=== PATIENT | male | born 1945 | race African-American/Black ===

== ENCOUNTER → 2017-01-30 | Outpatient (CLI) | payer OTHER, MEDICAID ==
[2016-12-12 03:02] VITALS: BP 170/85
[2017-01-30 08:47] LABS: BASOPHILS % (AUTO) 0.4 % (0.2-1.0); EOSINOPHILS # (AUTO) 0.1 x10^3/uL (0.0-0.2); EOSINOPHILS % (AUTO) 1.2 % (0.9-2.9); HEMOGLOBIN 13.4 g/dL (13.5-18.0); LYMPHOCYTES # (AUTO) 3.8 X10^3/uL (1.3-2.9); LYMPHOCYTES % (AUTO) 36.8 % (21.0-51.0); MEAN CORPUSCULAR HEMOGLOBIN 26.5 pg (27.0-34.0); MEAN PLATELET VOLUME 8.5 fL (7.4-11.0); MONOCYTES # (AUTO) 0.8 x10^3/uL (0.3-0.8); MONOCYTES % (AUTO) 8.2 % (0.0-13.0); NEUTROPHILS # (AUTO) 5.4 x10^3/uL (2.2-4.8); NEUTROPHILS % (AUTO) 53.4 % (42.0-75.0); PLATELET COUNT 186 X10^3/uL (150.0-450.0); RED BLOOD COUNT 5.05 X10^6/uL (4.7-6.0); RED CELL DISTRIBUTION WIDTH 13.1 % (11.6-16.5); WHITE BLOOD COUNT 10.2 X10^3/uL (3.6-10.0)
[2017-01-30 08:54] LABS: HEMOGLOBIN A1C 6.6 % (4.5-6.2)
[2017-01-30 09:03] LABS: ALBUMIN 3.7 g/dL (3.4-5.0); BLOOD UREA NITROGEN 9 mg/dL (7-18); CALCIUM 8.7 mg/dL (8.5-10.1); CARBON DIOXIDE 26.9 mmol/L (21-32); CHLORIDE 105 mmol/L (98-107); CHOL/HDL RATIO 3.6 (0.0-5.0); CHOLESTEROL 142 mg/dL (0-200); COR NA(FOR HYPERGLY) 141 mmol/L (136-145); CREATININE 1.06 mg/dL (0.70-1.30); GLUCOSE 124 mg/dL (65-99); HDL CHOLESTEROL 40 mg/dL (40-60); PHOSPHORUS 3.2 mg/dL (2.6-4.7); SODIUM 140 mmol/L (136-145); TRIGLYCERIDES 85 mg/dL (0-150); URIC ACID 4.8 mg/dL (3.5-7.2); eGFR BLACK RACES > 60 (>60); eGFR NON BLACK RACES > 60 (>60)
== END ==
LOC: LAB 08:14
PROVIDERS: ATTEND Internal Medicine
DX: I12.9 Hypertensive chronic kidney disease with stage 1 through stage 4 chronic kidney disease, or unspecified chronic kidney disease (principal); N18.3 Chronic kidney disease, stage 3 (moderate); E11.9 Type 2 diabetes mellitus without complications
CPT/HCPCS: 36415; 80061; 80069; 83036; 84550; 85025

== ENCOUNTER → 2017-02-23 | Outpatient (CLI) | payer OTHER, MEDICAID ==
[2016-12-12 03:02] VITALS: BP 170/85
--- NOTE | 2017-02-23 12:40 | US ---
HISTORY: Goiter Study: Thyroid sonogram Comparison: Carotid sonogram November 19, 2016 Technique: Multiple grayscale sonographic images were obtained. Findings: The right lobe measured 4.8 x 2.8 x 3.4 centimeters, the isthmus 7 millimeters common the left lobe 5.1 x 2.8 x 3.8 centimeters. In the right lobe of the thyroid there is a complex 2 centimeter non cy stic dominant nodule for which fine needle aspiration is recommended. In the left lobe there is a be nign 13 millimeter cyst. IMPRESSION: 2 centimeter complex dominant right thyroid lobe nodule for which fine needle aspiration is recommen ded. Reported By:
== END ==
LOC: RAD 10:34
PROVIDERS: ATTEND Nurse Practitioner Family
DX: E04.8 Other specified nontoxic goiter (principal)
CPT/HCPCS: 36415; 76536; 84443

== ENCOUNTER → 2017-02-25 | Outpatient (CLI) | payer OTHER, MEDICAID ==
[2016-12-12 03:02] VITALS: BP 170/85
[2017-02-25 10:42] LABS: FREE T4 (FREE THYROXINE) 0.95 ng/dL (0.76-1.46); T4 (THYROXINE) 7.9 ug/dL (4.7-13.3); TSH (3RD GENERATION) 0.309 uIU/mL (0.358-3.74)
== END ==
LOC: LAB 09:54
PROVIDERS: ATTEND Nurse Practitioner Family
DX: E04.8 Other specified nontoxic goiter (principal)
CPT/HCPCS: 36415; 84436; 84439; 84443

== ENCOUNTER → 2017-03-04 | Outpatient (CLI) | payer OTHER, MEDICAID ==
[2016-12-12 03:02] VITALS: BP 170/85
== END ==
LOC: RAD 13:43
PROVIDERS: ATTEND Internal Medicine Cardiovascular Disease
DX: R06.09 Other forms of dyspnea (principal); R53.83 Other fatigue
CPT/HCPCS: 93306

== ENCOUNTER → 2017-03-09 | Outpatient (CLI) | payer OTHER, MEDICAID ==
[2016-12-12 03:02] VITALS: BP 170/85
== END ==
LOC: RAD 08:26
PROVIDERS: ATTEND Physician Assistant
DX: R06.09 Other forms of dyspnea (principal); R53.83 Other fatigue
CPT/HCPCS: 78452; 93017; A4222; A9502

== ENCOUNTER → 2017-05-05 | Outpatient (CLI) | payer OTHER, MEDICAID ==
[2016-12-12 03:02] VITALS: BP 170/85
[2017-05-05 08:57] LABS: ALBUMIN 3.6 g/dL (3.4-5.0); BLOOD UREA NITROGEN 8 mg/dL (7-18); CALCIUM 8.9 mg/dL (8.5-10.1); CARBON DIOXIDE 26.6 mmol/L (21-32); CHLORIDE 105 mmol/L (98-107); CHOL/HDL RATIO 3.1 (0.0-5.0); CHOLESTEROL 156 mg/dL (0-200); COR NA(FOR HYPERGLY) 141 mmol/L (136-145); CREATININE 1.17 mg/dL (0.70-1.30); GLUCOSE 122 mg/dL (65-99); HDL CHOLESTEROL 50 mg/dL (40-60); HEMOGLOBIN A1C 6.3 % (4.5-6.2); PHOSPHORUS 2.8 mg/dL (2.6-4.7); SODIUM 140 mmol/L (136-145); TRIGLYCERIDES 99 mg/dL (0-150); eGFR BLACK RACES > 60 (>60); eGFR NON BLACK RACES > 60 (>60)
[2017-05-05 08:58] LABS: BASOPHILS % (AUTO) 0.4 % (0.2-1.0); EOSINOPHILS # (AUTO) 0.1 x10^3/uL (0.0-0.2); EOSINOPHILS % (AUTO) 1.7 % (0.9-2.9); HEMATOCRIT 40.8 % (42.0-54.0); HEMOGLOBIN 13.2 g/dL (13.5-18.0); LYMPHOCYTES # (AUTO) 3.3 X10^3/uL (1.3-2.9); LYMPHOCYTES % (AUTO) 36.8 % (21.0-51.0); MEAN CORPUSCULAR HEMOGLOBIN 27.3 pg (27.0-34.0); MEAN CORPUSCULAR HGB CONC 32.4 g/dL (33.0-35.0); MEAN CORPUSCULAR VOLUME 84.2 fL (80.0-100.0); MEAN PLATELET VOLUME 9.2 fL (7.4-11.0); MONOCYTES # (AUTO) 0.8 x10^3/uL (0.3-0.8); MONOCYTES % (AUTO) 8.6 % (0.0-13.0); NEUTROPHILS # (AUTO) 4.7 x10^3/uL (2.2-4.8); NEUTROPHILS % (AUTO) 52.5 % (42.0-75.0); PLATELET COUNT 139 X10^3/uL (150.0-450.0); RED BLOOD COUNT 4.85 X10^6/uL (4.7-6.0); RED CELL DISTRIBUTION WIDTH 13.3 % (11.6-16.5); WHITE BLOOD COUNT 8.9 X10^3/uL (3.6-10.0)
== END ==
LOC: LAB 08:17
PROVIDERS: ATTEND Internal Medicine
DX: I12.9 Hypertensive chronic kidney disease with stage 1 through stage 4 chronic kidney disease, or unspecified chronic kidney disease (principal); N18.3 Chronic kidney disease, stage 3 (moderate); E11.29 Type 2 diabetes mellitus with other diabetic kidney complication; R97.20 Elevated prostate specific antigen [PSA]
CPT/HCPCS: 36415; 80061; 80069; 83036; 84153; 85025

== ENCOUNTER → 2017-08-19 | Outpatient (CLI) | payer OTHER, MEDICAID ==
[2016-12-12 03:02] VITALS: BP 170/85
[2017-08-19 10:35] LABS: BASOPHILS % (AUTO) 0.6 % (0.2-1.0); EOSINOPHILS # (AUTO) 0.2 x10^3/uL (0.0-0.2); EOSINOPHILS % (AUTO) 2.4 % (0.9-2.9); HEMATOCRIT 40.1 % (42.0-54.0); HEMOGLOBIN 13.1 g/dL (13.5-18.0); LYMPHOCYTES # (AUTO) 2.6 X10^3/uL (1.3-2.9); MEAN CORPUSCULAR HEMOGLOBIN 27.5 pg (27.0-34.0); MEAN CORPUSCULAR HGB CONC 32.6 g/dL (33.0-35.0); MEAN CORPUSCULAR VOLUME 84.2 fL (80.0-100.0); MEAN PLATELET VOLUME 8.9 fL (7.4-11.0); MONOCYTES # (AUTO) 0.7 x10^3/uL (0.3-0.8); MONOCYTES % (AUTO) 8.5 % (0.0-13.0); NEUTROPHILS # (AUTO) 4.2 x10^3/uL (2.2-4.8); NEUTROPHILS % (AUTO) 54.5 % (42.0-75.0); PLATELET COUNT 157 X10^3/uL (150.0-450.0); RED BLOOD COUNT 4.76 X10^6/uL (4.7-6.0); RED CELL DISTRIBUTION WIDTH 13.6 % (11.6-16.5); WHITE BLOOD COUNT 7.8 X10^3/uL (3.6-10.0)
[2017-08-19 10:43] LABS: CREATININE,URINE 59.32 mg/dL (40-278)
[2017-08-19 10:54] LABS: ALANINE AMINOTRANSFERASE 35 Units/L (12-78); ALBUMIN 3.5 g/dL (3.4-5.0); ALKALINE PHOSPHATASE 54 Units/L (46-116); ASPARTATE AMINO TRANSFERASE 29 Units/L (15-37); BLOOD UREA NITROGEN 9 mg/dL (7-18); CARBON DIOXIDE 28.9 mmol/L (21-32); CHLORIDE 106 mmol/L (98-107); COR NA(FOR HYPERGLY) 141 mmol/L (136-145); CREATININE 1.29 mg/dL (0.70-1.30); SODIUM 139 mmol/L (136-145); TSH (3RD GENERATION) 0.442 uIU/mL (0.358-3.74); eGFR BLACK RACES > 60 (>60); eGFR NON BLACK RACES 58 (>60)
== END ==
LOC: LAB 10:12
PROVIDERS: ATTEND Nurse Practitioner Family
DX: E11.9 Type 2 diabetes mellitus without complications (principal); R94.6 Abnormal results of thyroid function studies
CPT/HCPCS: 36415; 80053; 82043; 83036; 84443; 85025

== ENCOUNTER → 2017-09-18 | Outpatient (CLI) | payer OTHER, MEDICAID ==
[2016-12-12 03:02] VITALS: BP 170/85
[2017-09-18 09:08] LABS: BASOPHILS % (AUTO) 0.4 % (0.2-1.0); EOSINOPHILS # (AUTO) 0.1 x10^3/uL (0.0-0.2); EOSINOPHILS % (AUTO) 1.4 % (0.9-2.9); HEMATOCRIT 41.7 % (42.0-54.0); HEMOGLOBIN 13.6 g/dL (13.5-18.0); LYMPHOCYTES # (AUTO) 3.3 X10^3/uL (1.3-2.9); LYMPHOCYTES % (AUTO) 37.4 % (21.0-51.0); MEAN CORPUSCULAR HEMOGLOBIN 27.3 pg (27.0-34.0); MEAN CORPUSCULAR HGB CONC 32.7 g/dL (33.0-35.0); MEAN CORPUSCULAR VOLUME 83.4 fL (80.0-100.0); MEAN PLATELET VOLUME 9.4 fL (7.4-11.0); MONOCYTES # (AUTO) 0.8 x10^3/uL (0.3-0.8); MONOCYTES % (AUTO) 8.9 % (0.0-13.0); NEUTROPHILS # (AUTO) 4.5 x10^3/uL (2.2-4.8); NEUTROPHILS % (AUTO) 51.9 % (42.0-75.0); PLATELET COUNT 172 X10^3/uL (150.0-450.0); RED CELL DISTRIBUTION WIDTH 13.7 % (11.6-16.5); WHITE BLOOD COUNT 8.8 X10^3/uL (3.6-10.0)
[2017-09-18 09:15] LABS: ALBUMIN 3.7 g/dL (3.4-5.0); BLOOD UREA NITROGEN 10 mg/dL (7-18); CALCIUM 8.9 mg/dL (8.5-10.1); CARBON DIOXIDE 24.7 mmol/L (21-32); CHLORIDE 104 mmol/L (98-107); CHOL/HDL RATIO 3.3 (0.0-5.0); CHOLESTEROL 151 mg/dL (0-200); COR NA(FOR HYPERGLY) 141 mmol/L (136-145); CREATININE 1.21 mg/dL (0.70-1.30); HDL CHOLESTEROL 46 mg/dL (40-60); HEMOGLOBIN A1C 5.8 % (4.5-6.2); PHOSPHORUS 2.9 mg/dL (2.6-4.7); SODIUM 140 mmol/L (136-145); TRIGLYCERIDES 71 mg/dL (0-150); URIC ACID 5.7 mg/dL (3.5-7.2); eGFR BLACK RACES > 60 (>60); eGFR NON BLACK RACES > 60 (>60)
== END ==
LOC: LAB 08:13
PROVIDERS: ATTEND Internal Medicine
DX: I12.9 Hypertensive chronic kidney disease with stage 1 through stage 4 chronic kidney disease, or unspecified chronic kidney disease (principal); N18.3 Chronic kidney disease, stage 3 (moderate); E11.22 Type 2 diabetes mellitus with diabetic chronic kidney disease
CPT/HCPCS: 36415; 80061; 80069; 83036; 84550; 85025

== ENCOUNTER → 2017-12-14 | Outpatient (CLI) | payer OTHER, MEDICAID ==
[2016-12-12 03:02] VITALS: BP 170/85
[2017-12-14 08:45] LABS: BASOPHILS % (AUTO) 0.5 % (0.2-1.0); EOSINOPHILS # (AUTO) 0.1 x10^3/uL (0.0-0.2); HEMATOCRIT 39.7 % (42.0-54.0); HEMOGLOBIN 13.1 g/dL (13.5-18.0); LYMPHOCYTES # (AUTO) 3.4 X10^3/uL (1.3-2.9); LYMPHOCYTES % (AUTO) 35.1 % (21.0-51.0); MEAN CORPUSCULAR HEMOGLOBIN 27.7 pg (27.0-34.0); MEAN CORPUSCULAR HGB CONC 32.9 g/dL (33.0-35.0); MEAN CORPUSCULAR VOLUME 84.1 fL (80.0-100.0); MEAN PLATELET VOLUME 8.6 fL (7.4-11.0); MONOCYTES # (AUTO) 0.8 x10^3/uL (0.3-0.8); MONOCYTES % (AUTO) 7.7 % (0.0-13.0); NEUTROPHILS # (AUTO) 5.5 x10^3/uL (2.2-4.8); NEUTROPHILS % (AUTO) 55.7 % (42.0-75.0); PLATELET COUNT 174 X10^3/uL (150.0-450.0); RED BLOOD COUNT 4.72 X10^6/uL (4.7-6.0); RED CELL DISTRIBUTION WIDTH 13.5 % (11.6-16.5); WHITE BLOOD COUNT 9.8 X10^3/uL (3.6-10.0)
[2017-12-14 08:53] LABS: HEMOGLOBIN A1C 5.7 %
[2017-12-14 08:59] LABS: ALBUMIN 3.6 g/dL (3.4-5.0); BLOOD UREA NITROGEN 13 mg/dL (7-18); CALCIUM 8.8 mg/dL (8.5-10.1); CARBON DIOXIDE 28.8 mmol/L (21-32); CHLORIDE 104 mmol/L (98-107); COR NA(FOR HYPERGLY) 140 mmol/L (136-145); CREATININE 1.22 mg/dL (0.70-1.30); PHOSPHORUS 2.7 mg/dL (2.6-4.7); SODIUM 139 mmol/L (136-145); URIC ACID 5.8 mg/dL (3.5-7.2); eGFR BLACK RACES > 60 (>60); eGFR NON BLACK RACES > 60 (>60)
[2017-12-14 09:18] LABS: TOTAL PSA 6.38 ng/mL (0.13-4.0)
== END ==
LOC: LAB 08:14
PROVIDERS: ATTEND Internal Medicine
DX: I12.9 Hypertensive chronic kidney disease with stage 1 through stage 4 chronic kidney disease, or unspecified chronic kidney disease (principal); N18.3 Chronic kidney disease, stage 3 (moderate); E11.29 Type 2 diabetes mellitus with other diabetic kidney complication; R35.1 Nocturia
CPT/HCPCS: 36415; 80069; 83036; 84153; 84550; 85025

== ENCOUNTER 2024-06-26 20:29 | Inpatient (IN) ==
--- NOTE | 2024-06-26 21:17 | DR.N/VMALE ---
HPI Time Seen Time Seen by Provider: 06/26/24 21:17 Complaints Chief Complaint Doctors Comments: Patient had been admitted to [facility] with a TIA and had been having abdl pain [address] Nieto ordered an 05/25/24 abd/pelvis ct without contrast that revealed an 8cm sigmoid colon mass suspic ious for carcinoma. Patient had TED and was hydrated and was d/c home.He had been evaluated by a drafting clerk during the admission. Patient returns with son because his appetite is greatly decreased (He has lost 20lbs in 2 weeks) and he has increased abdominal pain. Son states that patient has had n,v and cannot keep anything down. Patient denies: hematemesis,hematochezia,syncope,sob,chest pain,back pain. PMH PMH Past Medical History: Arthritis, Diabetes, GERD, Hypertension and Sleep Apnea Past Surgical History: Yes Surgical History: Other Family History Family Medical History: Diabetes Mellitus and Hypertension Social History Do you use any recreational Drugs:: No ROS Review of Systems Constitutional: Fever Eyes: No Symptoms Reported ENTM: No Symptoms Reported Respiratoy: No Symptoms Reported Cardiovascular: No Symptoms Reported Gastrointestinal/Abdominal: Abdominal Pain (LLQ), Nausea, Vomiting and Food Intolerance Genitourinary: No Symptoms Reported Neurological: No Symptoms Reported Musculoskeletal: No Symptoms Reported Integumentary: No Symptoms Reported Hematologic/Lymphatic: No Symptoms Reported Endocrine: No Symptoms Reported Psychiatric: No Symptoms Reported All Other Systems: Reviewed and Negative PE Vital Signs Vitals: Vital Signs Temperature 100.7 F Temperature 100.7 F Pulse Rate [Left Brachial] 105 Pulse Rate 98 Pulse Rate 104 Pulse Rate 107 Pulse Rate 107 Pulse Rate 104 Pulse Rate 107 Pulse Rate 108 Pulse Rate 107 Pulse Rate 110 Pulse Rate 114 Pulse Rate 113 Pulse Rate 113 Pulse Rate 113 Pulse Rate 113 Pulse Rate 112 Pulse Rate 24 Respiratory Rate 20 Respiratory Rate 22 Respiratory Rate 21 Respiratory Rate 21 Respiratory Rate 24 Respiratory Rate 21 Respiratory Rate 19 Respiratory Rate 22 Respiratory Rate 141 Blood Pressure [Left Arm] 116/60 Blood Pressure 124/59 Blood Pressure 111/67 Blood Pressure 125/58 Blood Pressure 98/53 Blood Pressure 119/59 Blood Pressure 119/59 Blood Pressure 119/59 Blood Pressure 119/63 Blood Pressure 110/62 Blood Pressure 79/50 O2 Sat by Pulse Oximetry 97 O2 Sat by Pulse Oximetry 95 O2 Sat by Pulse Oximetry 96 O2 Sat by Pulse Oximetry 97 O2 Sat by Pulse Oximetry 97 O2 Sat by Pulse Oximetry 97 O2 Sat by Pulse Oximetry 97 O2 Sat by Pulse Oximetry 97 O2 Sat by Pulse Oximetry 97 O2 Sat by Pulse Oximetry 97 O2 Sat by Pulse Oximetry 97 O2 Sat by Pulse Oximetry 97 O2 Sat by Pulse Oximetry 96 O2 Sat by Pulse Oximetry 97 O2 Sat by Pulse Oximetry 98 O2 Sat by Pulse Oximetry 96 O2 Sat by Pulse Oximetry 95 General Limitations: No Limitations General Appearance: Alert and In No Apparent Distress Head Head Exam: Normal Inspection Eyes Eye exam: Normal Appearance ENT ENT Exam: Normal Exam Neck Neck Exam: Normal Inspection Chest Chest Inspection: Normal Inspection Respiratory Respiratory Exam: Normal Lung Sounds Bilat Respiratory Exam: Bilateral: Clear to Auscultation Cardiovascular Cardiovascular Exam: Tachycardia Abdominal Exam Abdominal Exam: Soft and Tenderness Abdominal Tenderness: LLQ Rectal Rectal Exam: Deferred Exam: Male: Deferred Extremities Extremities Exam: Normal Inspection Back Back Exam: Normal Inspection Neurologic Neurological Exam: Alert and Oriented X3 Psychiatric Psychiatric Exam: Normal Affect and Normal Mood Skin Skin Exam: Warm, Dry, Intact and Normal Color MDM Differential Diagnosis Differential Diagnosis: Considerations may Include:: Bowel Obstruction, Inflammatory BD and Pancreatitis Differential Diagnosis Comment: DDx: Enlarged sigmoid colon mass,bowel ischemia COURSE Treatment Treatment: Patient was brought to a monitored room he has been tachycardic since arrival in the ED and has recieved NS 1liter bolus iv. Patient's wbc is 30.2 and a blset of blood cxs were collected and Ptaient was given Zosyn 4.5g iv x 1 dose in the ED. Patient was also given pepcid 20mg iv,and tylenol 1 g iv for repeat temp 100.7. Patient's first lactate is 4.4 and the 2nd is 3.2. Patient has a stable h/h and he continues with TED(creat 1.56). Patient will be given NS @ 100ml/hr iv. Discussed case with Dr Medrano. Dr Medrano has accepted the Patient to [facility]. Dr Nieto will be consulted. [facility]OR Labs Reviewed 06/26/24 21:38 06/26/24 21:38 Laboratory: WBC 30.2 X10^3/uL (3.6-10.0) H* 06/26/24 21:38 RBC 3.93 X10^6/uL (4.7-6.0) L 06/26/24 21:38 Hgb 10.6 g/dL (13.5-18.0) L 06/26/24 21:38 Hct 33.9 % (42.0-54.0) L 06/26/24 21:38 MCV 86.1 fL (80.0-100.0) 06/26/24 21:38 MCH 26.9 pg (27.0-34.0) L 06/26/24 21:38 MCHC 31.2 g/dL (33.0-35.0) L 06/26/24 21:38 RDW 15.3 % (11.6-16.5) 06/26/24 21:38 Plt Count 375 X10^3/uL (150.0-450.0) 06/26/24 21:38 MPV 8.4 fL (7.4-11.0) 06/26/24 21:38 Neut % (Auto) 84.3 % (42.0-75.0) H 06/26/24 21:38 Lymph % (Auto) 8.8 % (21.0-51.0) L 06/26/24 21:38 Edgar % (Auto) 6.6 % (0.0-13.0) 06/26/24 21:38 Eos % (Auto) 0.0 % (0.9-2.9) L 06/26/24 21:38 Baso % (Auto) 0.3 % (0.2-1.0) 06/26/24 21:38 Neut # (Auto) 25.4 x10^3/uL (2.2-4.8) H 06/26/24 21:38 Lymph # (Auto) 2.7 X10^3/uL (1.3-2.9) 06/26/24 21:38 Edgar # (Auto) 2.0 x10^3/uL (0.3-0.8) H 06/26/24 21:38 Eos # (Auto) 0.0 x10^3/uL (0.0-0.2) 06/26/24 21:38 Baso # (Auto) 0.1 X10^3/uL (0.0-0.1) 06/26/24 21:38 Absolute Nucleated RBC 0.0 /100WBC 06/26/24 21:38 Sodium 136 mmol/L (136-145) 06/26/24 21:38 Corrected Sodium 141 mmol/L (136-145) 06/26/24 21:38 Potassium 3.7 mmol/L (3.5-5.1) 06/26/24 21:38 Chloride 98 mmol/L (98-107) 06/26/24 21:38 Carbon Dioxide 22.9 mmol/L (21-32) 06/26/24 21:38 BUN 13 mg/dL (7-18) 06/26/24 21:38 Creatinine 1.56 mg/dL (0.70-1.30) H 06/26/24 21:38 Est GFR (MDRD) Af Amer 55 (>60) L 06/26/24 21:38 Est GFR (MDRD) Non-Af 46 (>60) L 06/26/24 21:38 Glucose 309 mg/dL (65-99) H 06/26/24 21:38 Lactic Acid 3.2 mmol/L (0.4-2.0) H 06/26/24 23:16 Calcium 9.5 mg/dL (8.5-10.1) 06/26/24 21:38 Corrected Calcium 10.5 mg/dL (8.5-10.1) H 06/26/24 21:38 Magnesium 1.4 mg/dL (2.0-2.9) L 06/26/24 21:38 Total Bilirubin 0.60 mg/dL (0.2-1.0) 06/26/24 21:38 AST 16 Units/L (15-37) 06/26/24 21:38 ALT 14 Units/L (12-78) 06/26/24 21:38 Alkaline Phosphatase 71 Units/L (46-116) 06/26/24 21:38 Total Protein 7.1 g/dL (6.4-8.2) 06/26/24 21:38 Albumin 2.7 g/dL (3.4-5.0) L 06/26/24 21:38 Globulin 4.4 g/dL (2.5-4.5) 06/26/24 21:38 Albumin/Globulin Ratio 0.6 Ratio (1.1-2.1) L 06/26/24 21:38 Amylase 61 Units/L (25-115) 06/26/24 21:38 Lipase 20 Units/L (16-77) 06/26/24 21:38 Opioid Opioid Risk Tool Age (Tayo box if 16-45): No History of Preadolescent Sexual Abuse: No Total: 0 Total Score Risk Category: Low Risk Copyright: [facility] predicting aberrant behaviors Discharge Plan Diagnosis Discharge Problem: Sepsis, TED (acute kidney injury), Cancer of sigmoid colon Discharge Plan Patient Disposition: ADMITTED INPATIENT Condition: Stable Prescriptions: No Action docusate sodium [Colace] 100 mg capsule 100 mg PO BID 30 Days Qty: 60 0RF aspirin 81 mg tablet,delayed release (DR/EC) 81 mg PO QDAY metformin 500 mg tablet 500 mg PO BID 30 Days Qty: 60 2RF simvastatin 40 mg tablet 40 mg PO QPM Qty: 90 0RF gabapentin 100 mg capsule 100 mg PO BID 30 Days Qty: 60 3RF hydrocodone-acetaminophen 10-325 mg tablet 1 - 2 tab PO TID MDD 4 PRN (Reason: pain) 30 Days Qty: 100 0RF ferrous gluconate 324 mg (37.5 mg iron) tablet 324 mg PO BID Qty: 60 2RF finasteride 5 mg tablet 5 mg PO QDAY doxazosin 8 mg Tablet 8 mg PO DAILY glipizide 5 mg tablet 5 mg PO DAILY torsemide 5 mg tablet 5 mg PO QDAY pantoprazole 40 mg tablet,delayed release (DR/EC) 40 mg PO QDAY ergocalciferol (vitamin D2) [Vitamin D2] 1,250 mcg (50,000 unit) Capsule 1,250 mcg PO QWEEK Multaq 400 mg tablet 400 mg PO BID cyproheptadine 4 mg tablet 2 mg PO BID Health Concerns: Post Hospitalization: new medications and changes needed to prevent readmission or further decline. Pt educated and given instructions on all concerns. Plan of Treatment: Continue with present treatment and follow up plan. Pt is to keep follow up appointment as instructed and take medications as ordered. Orders to Discharge Patient Discharge Orders: Transfer (Routine); Ordered 06/27/24 Ordered By: Tamica Watkins Follow ups/Referrals Follow ups/Referrals: Stephane Sandoval [Primary Care Provider] - 3 days Instructions Stand Alone Forms: Post Hospital Follow Up Care
[2024-06-26] MEDS: PEPCID 20 MG VIAL IVP ONE (22:19)
[2024-06-26] MEDS: NS 1,000 ML IV 1,000 ML IV ONE (22:19)
[2024-06-26 22:22] LABS: HEMATOCRIT 33.9 % (42.0-54.0); LYMPHOCYTES # (AUTO) 2.7 X10^3/uL (1.3-2.9); LYMPHOCYTES % (AUTO) 8.8 % (21.0-51.0); MEAN PLATELET VOLUME 8.4 fL (7.4-11.0); NEUTROPHILS # (AUTO) 25.4 x10^3/uL (2.2-4.8); RED BLOOD COUNT 3.93 X10^6/uL (4.7-6.0)
[2024-06-26 22:26] LABS: BASOPHILS # (AUTO) 0.1 X10^3/uL (0.0-0.1); BASOPHILS % (AUTO) 0.3 % (0.2-1.0); HEMOGLOBIN 10.6 g/dL (13.5-18.0); MEAN CORPUSCULAR HEMOGLOBIN 26.9 pg (27.0-34.0); MEAN CORPUSCULAR HGB CONC 31.2 g/dL (33.0-35.0); MEAN CORPUSCULAR VOLUME 86.1 fL (80.0-100.0); MONOCYTES % (AUTO) 6.6 % (0.0-13.0); NEUTROPHILS % (AUTO) 84.3 % (42.0-75.0); PLATELET COUNT 375 X10^3/uL (150.0-450.0); RED CELL DISTRIBUTION WIDTH 15.3 % (11.6-16.5)
[2024-06-26 22:30] LABS: ALBUMIN 2.7 g/dL (3.4-5.0); CALCIUM 9.5 mg/dL (8.5-10.1); CARBON DIOXIDE 22.9 mmol/L (21-32); COR CA(FOR HYPOALB) 10.5 mg/dL (8.5-10.1); CREATININE 1.56 mg/dL (0.70-1.30); MAGNESIUM 1.4 mg/dL (2.0-2.9); POTASSIUM 3.7 mmol/L (3.5-5.1); TOTAL PROTEIN 7.1 g/dL (6.4-8.2)
[2024-06-26 22:42] LABS: WHITE BLOOD COUNT 30.2 X10^3/uL (3.6-10.0)
[2024-06-26] MEDS ORDERED: NS 250 ML IV 25 ML IV PRN (22:48)
[2024-06-26] MEDS: ZOSYN VIAL 4.5 GRAMS 4.5 G in NS 100 ML IV 100 ML IV SCH (23:06)
--- NOTE | 2024-06-26 23:29 | CT ---
EXAM:ABDOMEN/PELVIS W/O CONHISTORY:ABDOMEN PAIN, LOSS OF APPETITE ; HTN, DM, GERD, ARTHRITIS, SLEEP APNEA, MINI STROKECOMPARISON:May 24, 2024TECHNIQUE:Non-contrasted axial CT images of the abdomen and pelvis were obtained and reformatted into coronal and sagittal planes for further evaluation.Radiation dose: 360.76 mGy-cm total DLPFINDINGS:Lung bases are clear.Small nonspecific pericardial effusion.Stomach appears normal.Diffuse fatty infiltration of the liver.Spleen, pancreas and adrenal glands are unremarkable.Small calcified stones and sludge in the gallbladder with no imaging findings of acute cholecystitis.No intra or extrahepatic biliary duct dilatation.Unremarkable appearance of the kidneys.No hydronephrosis, hydroureter or ureteral calculus.Unremarkable appearance of the urinary bladder.Thick walled cavitary foci which appears to arise from the sigmoid colon, in the left mid abdomen measuring approximately 7.9 x 9.5 x 11.7 cm. Foci has increased in size when compared to the previous exam.Reproductive structures are unremarkable.No evidence of acute appendicitis.No pneumoperitoneum.No significant fluid collection.No adenopathy.No acute osseous abnormality.Moderate-sized fat containing right paraumbilical hernia without inflammatory changes.Incidental small right Bochdalek hernia.IMPRESSION:1. Thick walled cavitary foci which appears to arise from the sigmoid colon, in the left mid abdomen measuring approximately 7.9 x 9.5 x 11.7 cm. Foci has increased in size when compared to the previous exam. Findings could represent carcinoma or lymphoma. Recommend general surgery consultation.2. Diffuse fatty infiltration of the liver.THIS IS AN ELECTRONICALLY VERIFIED FINAL REPORT06/26/2024 11:26 PM - Electronically signed by Tushar Oliver MD
[2024-06-27] MEDS: OFIRMEV IV 1000 MG VIAL 1,000 MG/100 ML VIAL IV ONE (00:20)
[2024-06-27] MEDS: NS 1,000 ML IV 1,000 ML IV SCH (01:33)
[2024-06-27] MEDS: CONSULT PHARMACY - POTASSIUM & MAGNESIUM XX SCH (01:33)
[2024-06-27 02:30] VITALS: BMI 31.1
[2024-06-27 05:18] LABS: EOSINOPHILS % (AUTO) 0.1 % (0.9-2.9); HEMOGLOBIN 8.7 g/dL (13.5-18.0); LYMPHOCYTES # (AUTO) 3.4 X10^3/uL (1.3-2.9); MEAN CORPUSCULAR HEMOGLOBIN 26.9 pg (27.0-34.0); RED BLOOD COUNT 3.23 X10^6/uL (4.7-6.0)
[2024-06-27 05:23] LABS: BASOPHILS % (AUTO) 0.1 % (0.2-1.0); HEMATOCRIT 27.5 % (42.0-54.0); LYMPHOCYTES % (AUTO) 11.3 % (21.0-51.0); MEAN CORPUSCULAR HGB CONC 31.6 g/dL (33.0-35.0); MEAN CORPUSCULAR VOLUME 85.2 fL (80.0-100.0); MEAN PLATELET VOLUME 7.9 fL (7.4-11.0); MONOCYTES # (AUTO) 2.2 x10^3/uL (0.3-0.8); MONOCYTES % (AUTO) 7.3 % (0.0-13.0); NEUTROPHILS # (AUTO) 24.3 x10^3/uL (2.2-4.8); NEUTROPHILS % (AUTO) 81.2 % (42.0-75.0); PLATELET COUNT 316 X10^3/uL (150.0-450.0); RED CELL DISTRIBUTION WIDTH 14.9 % (11.6-16.5); WHITE BLOOD COUNT 29.9 X10^3/uL (3.6-10.0)
[2024-06-27 05:26] LABS: ALANINE AMINOTRANSFERASE 7 Units/L (12-78); ALBUMIN 2.1 g/dL (3.4-5.0); ALKALINE PHOSPHATASE 58 Units/L (46-116); ASPARTATE AMINO TRANSFERASE 9 Units/L (15-37); BLOOD UREA NITROGEN 14 mg/dL (7-18); CALCIUM 8.6 mg/dL (8.5-10.1); CARBON DIOXIDE 27.2 mmol/L (21-32); CHLORIDE 103 mmol/L (98-107); COR CA(FOR HYPOALB) 10.1 mg/dL (8.5-10.1); COR NA(FOR HYPERGLY) 143 mmol/L (136-145); CREATININE 1.34 mg/dL (0.70-1.30); GLUCOSE 252 mg/dL (65-99); POTASSIUM 3.5 mmol/L (3.5-5.1); SODIUM 139 mmol/L (136-145); TOTAL PROTEIN 5.8 g/dL (6.4-8.2); eGFR NON BLACK RACES 55 (>60)
[2024-06-27] MEDS: ZOSYN VIAL 4.5 GRAMS 4.5 G in NS 100 ML IV 100 ML IV SCH (05:37)
[2024-06-27 05:38] LABS: HYPOCHROMASIA SLIGHT; PLATELET MORPHOLOGY COMMENT NORMAL (NORMAL)
[2024-06-27] MEDS: NovoLIN R (or HumuLIN R) SUBCUT PRN (06:25)
[2024-06-27 08:03] LABS: BILIRUBIN,URINE NEGATIVE (NEGATIVE); BLOOD/HEMOGLOBIN,URINE NEGATIVE (NEGATIVE); GLUCOSE, URINE 2+ (NEGATIVE); KETONES,URINE NEGATIVE (NEGATIVE); LEUKOCYTE ESTERASE ,URINE NEGATIVE (NEGATIVE); NITRITES,URINE NEGATIVE (NEGATIVE); PROTEIN,URINE 2+ (NEGATIVE); UROBILINOGEN,URINE NORMAL (NORMAL)
[2024-06-27 08:06] LABS: APPEARANCE,URINE CLEAR (CLEAR); COLOR,URINE YELLOW (YELLOW)
[2024-06-27 08:15] LABS: BACTERIA,URINE NEGATIVE /HPF (NEGATIVE); CALCIUM OXALATE CRYSTALS,UR RARE /HPF (NEGATIVE); RBC,URINE NONE SEEN /HPF (0-3); SQUAMOUS EPITHELIAL CELL,UR RARE /HPF (NEGATIVE)
[2024-06-27 08:16] LABS: OTHER CRYSTALS,URINE FEW /HPF (NEGATIVE)
[2024-06-27] MEDS ORDERED: VITAMIN D (1.25MG) PO SCH (09:00)
[2024-06-27] MEDS: FERROUS GLUCONATE PO SCH (09:48)
[2024-06-27] MEDS: MULTAQ PO SCH (09:49)
[2024-06-27] MEDS: PROTONIX INJ 40 MG VIAL IVP SCH (09:49)
[2024-06-27] MEDS: COLACE CAP 100 MG PO SCH (09:50)
[2024-06-27] MEDS: PROSCAR PO SCH (09:50)
[2024-06-27] MEDS: CARDURA PO SCH (09:51)
[2024-06-27] MEDS: NEURONTIN CAP 100 MG PO SCH (09:51)
[2024-06-27] MEDS: DEMADEX PO SCH (09:52)
--- NOTE | 2024-06-27 16:21 | EKG ---
Test Reason : preop Blood Pressure : */* mmHG Vent. Rate : 95 BPM Atrial Rate : 95 BPM P-R Int : 126 ms QRS Dur : 80 ms QT Int : 366 ms P-R-T Axes : 47 46 48 degrees QTc Int : 459 ms Sinus rhythm with marked sinus arrhythmia with occasional premature ventricular complexes Otherwise normal ECG When compared with ECG of 02-JUN-2024 08:53, premature ventricular complexes are now present Confirmed by Rashad Jackson MD ([id number]) on 06/28/2024 7:24:41 AM Referred By: Confirmed By: Rashad Jackson MD
[2024-06-27] MEDS: ZOCOR TAB 10 MG PO SCH (21:16)
[2024-06-28 06:22] LABS: BASOPHILS # (AUTO) 0.1 X10^3/uL (0.0-0.1); BASOPHILS % (AUTO) 0.6 % (0.2-1.0); EOSINOPHILS # (AUTO) 0.4 x10^3/uL (0.0-0.2); EOSINOPHILS % (AUTO) 1.9 % (0.9-2.9); HEMATOCRIT 26.9 % (42.0-54.0); HEMOGLOBIN 8.6 g/dL (13.5-18.0); LYMPHOCYTES # (AUTO) 3.8 X10^3/uL (1.3-2.9); LYMPHOCYTES % (AUTO) 17.9 % (21.0-51.0); MEAN CORPUSCULAR HEMOGLOBIN 27.2 pg (27.0-34.0); MEAN PLATELET VOLUME 7.9 fL (7.4-11.0); MONOCYTES # (AUTO) 1.8 x10^3/uL (0.3-0.8); MONOCYTES % (AUTO) 8.5 % (0.0-13.0); NEUTROPHILS % (AUTO) 71.1 % (42.0-75.0); PLATELET COUNT 271 X10^3/uL (150.0-450.0); RED BLOOD COUNT 3.16 X10^6/uL (4.7-6.0); RED CELL DISTRIBUTION WIDTH 14.7 % (11.6-16.5); WHITE BLOOD COUNT 21.2 X10^3/uL (3.6-10.0)
[2024-06-28 06:38] LABS: ALANINE AMINOTRANSFERASE 8 Units/L (12-78); ALKALINE PHOSPHATASE 54 Units/L (46-116); ASPARTATE AMINO TRANSFERASE 13 Units/L (15-37); BLOOD UREA NITROGEN 9 mg/dL (7-18); CALCIUM 8.8 mg/dL (8.5-10.1); CARBON DIOXIDE 24.5 mmol/L (21-32); CHLORIDE 103 mmol/L (98-107); COR CA(FOR HYPOALB) 10.4 mg/dL (8.5-10.1); COR NA(FOR HYPERGLY) 138 mmol/L (136-145); CREATININE 1.15 mg/dL (0.70-1.30); GLUCOSE 142 mg/dL (65-99); MAGNESIUM 1.5 mg/dL (2.0-2.9); POTASSIUM 3.3 mmol/L (3.5-5.1); SODIUM 137 mmol/L (136-145); TOTAL PROTEIN 5.8 g/dL (6.4-8.2); eGFR NON BLACK RACES > 60 (>60)
[2024-06-28] MEDS ORDERED: CONSULT PHARMACY - POTASSIUM & MAGNESIUM XX SCH ×2 (07:00→08:00)
[2024-06-28 07:13] LABS: BAND NEUTROPHILS % 2 % (0-10); PLATELET MORPHOLOGY COMMENT NORMAL (NORMAL)
--- NOTE | 2024-06-28 08:32 | DR.CONSULT ---
CONSULT Consultation for Day of: Date: 06/28/24 Chief Complaint Chief Complaint: abdominal c/o, n,v Allergies Allergies Allergy/AdvReac Type Severity Reaction Status Date / Time No Known Drug Allergies Allergy Unknown Verified 06/26/24 21:23 History of Present Illness History of Present Illness: 78 yo male- had stroke 06/02/24- known colon mass that needs resection- attempted to wait 6 weeks at [facility] post stroke but poor po/n/v- states took asa/plavix and held it down thursday- cath 2020: no cad, stress 09/17: no ischemia, echo 05/18: good lv- before stroke/colon mass-cutting grass w/o issue Past Medical History Past Medical History: Arthritis, Diabetes, GERD, Hypertension and Sleep Apnea Past Surgical History Surgical History: Other Family History Family Medical History: Diabetes Mellitus and Hypertension Social History Does patient currently use any type of tobacco product: No Type of Tobacco Use: None Alcohol Use: None Drug Use: None Medications Home Medications: No Known Drug Allergies Allergy (Unknown, Verified 06/26/24 21:23) CONTINUE taking the following medications cyproheptadine 4 mg tablet 2 mg PO BID appetite 06/26/24 [History] dronedarone 400 mg tablet (Multaq) 400 mg PO BID 06/26/24 [History] ergocalciferol (vitamin D2) 1,250 mcg (50,000 unit) capsule (Vitamin D2) 1,250 mcg PO QWEEK 06/26/24 [History] pantoprazole 40 mg tablet,delayed release 40 mg PO QDAY 06/26/24 [History] Physical Exam Vital Signs: Vital Signs Temperature 98.1 F Pulse Rate [Left Brachial] 71 Respiratory Rate 18 Blood Pressure [Right Arm] 92/52 O2 Sat by Pulse Oximetry 98 alert ox3 nad clear lungs no bruits no edema labs: wbc 30 down to 21, hct 26.9 coags normal, k 3.3 [address]:8 x9x 11 mass in colon Plan (1) Cancer of sigmoid colon: Status: Acute (2) Anemia: Status: Acute (3) History of CVA (cerebrovascular accident): Status: Acute (4) Sepsis: Status: Acute (5) TED (acute kidney injury): Status: Acute (6) Preop cardiovascular exam: Status: Acute Narrative Support Text: off plavix and asa since thursday- would wait 5 days before surgery due to bleeding risk- CV risk acceptable- recurrent stroke is risk as 3 weeks post stroke but colon mass causing issues- needs a few days for antibiotics as well
[2024-06-28] MEDS: REGLAN INJ 10 MG VIAL IVP PRN (09:47)
[2024-06-28] MEDS: NS + KCL 20 MEQ/L 1,000 ML with MAGNESIUM SULFATE 50% INJ VIAL 1 G IV SCH (09:47)
--- NOTE | 2024-06-28 13:08 | PCM.PROG ---
Progress Note Progress Note for Day of Date of Exam: 06/28/24 Subjective Subjective: Patient seen at bedside, no acute events overnight. He has been admitted for generalized weakness, decreased appetite and abdominal distention. Patient was recently diagnosed with colon cancer and then had a stroke a few weeks later. He is currently on aspirin and Plavix. Patient needs abdominal surgery but due to recent stroke, patient was told to wait at least 4 to 6 weeks. He continues to have significant weight loss, weakness and poor appetite. Cardiology was consulted for cardiac clearance for abdominal surgery. Dr. Senior has also been consulted. He is currently on IV fluids and antibiotics. Labs/imaging reviewed: -WBC 21 hemoglobin 8.6 K3.3 magnesium 1.5 -UA negative for infection Plan: Follow cardiology and surgery recommendations. Patient has been off of aspirin and Plavix since Thursday. Continue hydration, replace electrolytes as needed. Diet as per surgery. Continue home medications. Monitor AM labs/imaging. Past Medical Family Social History Allergies: Allergies No Known Drug Allergies Allergy (Unknown, Verified 06/26/24 21:23) Onset Date: 04/16/2012 Vital Signs and I&O's Vital Signs: Vital Signs Temperature 97.6 F Temperature 98.2 F Pulse Rate [Left Brachial] 97 Pulse Rate [Left Brachial] 91 Respiratory Rate 18 Respiratory Rate 18 Blood Pressure [Right Arm] 116/60 Blood Pressure [Right Arm] 111/59 O2 Sat by Pulse Oximetry 99 O2 Sat by Pulse Oximetry 99 Intake and Output: Intake & Output 06/25/24 06/26/24 06/27/24 06/28/24 23:59 23:59 23:59 23:59 Intake Total 2350 / 2350 377 / 377 Balance 2350 / 2350 377 / 377 Physical Exam Oriented: Normal Eyes: Normal Nose: Normal Throat: Normal Respiratory: Generalized and Diminished Cardiovascular: Normal Auscultation: Bowel Sounds: Normal Tenderness: Periumbilical and Mild Musculoskeletal: Normal Psychiatric: Normal Mood Description: Calm and Appropriate Affect: Normal Speech Pattern: Clear and Appropriate Laboratory and Diagnostics 06/28/24 05:49 06/28/24 05:49 Labs: 06/26/24 23:16 Blood Blood Culture - Preliminary 06/26/24 21:38 Blood Blood Culture - Preliminary Laboratory WBC 21.2 X10^3/uL (3.6-10.0) H D 06/28/24 05:49 RBC 3.16 X10^6/uL (4.7-6.0) L 06/28/24 05:49 Hgb 8.6 g/dL (13.5-18.0) L 06/28/24 05:49 Hct 26.9 % (42.0-54.0) L 06/28/24 05:49 MCV 85.0 fL (80.0-100.0) 06/28/24 05:49 MCH 27.2 pg (27.0-34.0) 06/28/24 05:49 MCHC 32.0 g/dL (33.0-35.0) L 06/28/24 05:49 RDW 14.7 % (11.6-16.5) 06/28/24 05:49 Plt Count 271 X10^3/uL (150.0-450.0) 06/28/24 05:49 Plt Count Comment Adequate (ADEQUATE) 06/28/24 05:49 MPV 7.9 fL (7.4-11.0) 06/28/24 05:49 Neut % (Auto) 71.1 % (42.0-75.0) 06/28/24 05:49 Lymph % (Auto) 17.9 % (21.0-51.0) L 06/28/24 05:49 Bartholomew % (Auto) 8.5 % (0.0-13.0) 06/28/24 05:49 Eos % (Auto) 1.9 % (0.9-2.9) 06/28/24 05:49 Baso % (Auto) 0.6 % (0.2-1.0) 06/28/24 05:49 Neut # (Auto) 15.0 x10^3/uL (2.2-4.8) H 06/28/24 05:49 Lymph # (Auto) 3.8 X10^3/uL (1.3-2.9) H 06/28/24 05:49 Bartholomew # (Auto) 1.8 x10^3/uL (0.3-0.8) H 06/28/24 05:49 Eos # (Auto) 0.4 x10^3/uL (0.0-0.2) H 06/28/24 05:49 Baso # (Auto) 0.1 X10^3/uL (0.0-0.1) 06/28/24 05:49 Absolute Nucleated RBC 0.0 /100WBC 06/28/24 05:49 Total Counted 100 06/28/24 05:49 Neutrophils % (Manual) 74 % (39-76) 06/28/24 05:49 Band Neutrophils % 2 % (0-10) 06/28/24 05:49 Lymphocytes % (Manual) 18 % (13-43) 06/28/24 05:49 Monocytes % (Manual) 3 % (4-9) L 06/28/24 05:49 Eosinophils % (Manual) 3 % (0-6) 06/28/24 05:49 Plt Morphology Comment Normal (NORMAL) 06/28/24 05:49 RBC Morphology Normal (NORMAL) 06/28/24 05:49 Hypochromasia Slight A 06/27/24 04:13 Sodium 137 mmol/L (136-145) 06/28/24 05:49 Corrected Sodium 138 mmol/L (136-145) 06/28/24 05:49 Potassium 3.3 mmol/L (3.5-5.1) L 06/28/24 05:49 Chloride 103 mmol/L (98-107) 06/28/24 05:49 Carbon Dioxide 24.5 mmol/L (21-32) 06/28/24 05:49 BUN 9 mg/dL (7-18) 06/28/24 05:49 Creatinine 1.15 mg/dL (0.70-1.30) 06/28/24 05:49 Est GFR (MDRD) Af Amer > 60 (>60) 06/28/24 05:49 Est GFR (MDRD) Non-Af > 60 (>60) 06/28/24 05:49 Glucose 142 mg/dL (65-99) H 06/28/24 05:49 POC Glucose (mg/dL) 236 mg/dL (65-99) H 06/28/24 11:55 Lactic Acid 1.9 mmol/L (0.4-2.0) 06/27/24 01:15 Calcium 8.8 mg/dL (8.5-10.1) 06/28/24 05:49 Corrected Calcium 10.4 mg/dL (8.5-10.1) H 06/28/24 05:49 Magnesium 1.5 mg/dL (2.0-2.9) L 06/28/24 05:49 Total Bilirubin 0.50 mg/dL (0.2-1.0) 06/28/24 05:49 AST 13 Units/L (15-37) L 06/28/24 05:49 ALT 8 Units/L (12-78) L 06/28/24 05:49 Alkaline Phosphatase 54 Units/L (46-116) 06/28/24 05:49 Total Protein 5.8 g/dL (6.4-8.2) L 06/28/24 05:49 Albumin 2.0 g/dL (3.4-5.0) L 06/28/24 05:49 Globulin 3.8 g/dL (2.5-4.5) 06/28/24 05:49 Albumin/Globulin Ratio 0.5 Ratio (1.1-2.1) L 06/28/24 05:49 Amylase 61 Units/L (25-115) 06/26/24 21:38 Lipase 20 Units/L (16-77) 06/26/24 21:38 Specimen Type Clean catch urine 06/27/24 07:48 Urine Color Yellow (YELLOW) 06/27/24 07:48 Urine Appearance Clear (CLEAR) 06/27/24 07:48 Urine pH 5.0 (5.0 - 8.0) 06/27/24 07:48 Ur Specific [place] 1.020 (1.000-1.030) 06/27/24 07:48 Urine Protein 2+ (NEGATIVE) 06/27/24 07:48 Urine Glucose (UA) 2+ (NEGATIVE) 06/27/24 07:48 Urine Ketones Negative (NEGATIVE) 06/27/24 07:48 Urine Blood Negative (NEGATIVE) 06/27/24 07:48 Urine Nitrite Negative (NEGATIVE) 06/27/24 07:48 Urine Bilirubin Negative (NEGATIVE) 06/27/24 07:48 Urine Urobilinogen Normal (NORMAL) 06/27/24 07:48 Ur Leukocyte Esterase Negative (NEGATIVE) 06/27/24 07:48 Urine RBC None seen /HPF (0-3) 06/27/24 07:48 Urine WBC 0-2 /HPF (0-5) 06/27/24 07:48 Ur Squamous Epith Cells Rare /HPF (NEGATIVE) 06/27/24 07:48 Calcium Oxalate Crystal Rare /HPF (NEGATIVE) 06/27/24 07:48 Other Crystals Few /HPF (NEGATIVE) 06/27/24 07:48 Urine Bacteria Negative /HPF (NEGATIVE) 06/27/24 07:48 Ur Culture Indicated? No/not indicated 06/27/24 07:48 Plan (1) Cancer of sigmoid colon: Status: Acute (2) Anemia: Status: Acute Qualifiers: Anemia type: unspecified type Qualified Code(s): D64.9 - Anemia, unspecified (3) History of CVA (cerebrovascular accident): Status: Acute (4) TED (acute kidney injury): Status: Acute (5) Preop cardiovascular exam: Status: Acute
[2024-06-28] MEDS: RESTORIL CAP 15 MG PO PRN (21:17)
[2024-06-29 06:06] LABS: BASOPHILS # (AUTO) 0.1 X10^3/uL (0.0-0.1); BASOPHILS % (AUTO) 0.5 % (0.2-1.0); EOSINOPHILS # (AUTO) 0.3 x10^3/uL (0.0-0.2); EOSINOPHILS % (AUTO) 1.5 % (0.9-2.9); HEMATOCRIT 26.1 % (42.0-54.0); HEMOGLOBIN 8.3 g/dL (13.5-18.0); LYMPHOCYTES # (AUTO) 3.3 X10^3/uL (1.3-2.9); LYMPHOCYTES % (AUTO) 16.9 % (21.0-51.0); MEAN CORPUSCULAR HEMOGLOBIN 26.9 pg (27.0-34.0); MEAN CORPUSCULAR HGB CONC 31.6 g/dL (33.0-35.0); MEAN CORPUSCULAR VOLUME 84.9 fL (80.0-100.0); MEAN PLATELET VOLUME 7.5 fL (7.4-11.0); MONOCYTES # (AUTO) 1.6 x10^3/uL (0.3-0.8); NEUTROPHILS # (AUTO) 14.3 x10^3/uL (2.2-4.8); NEUTROPHILS % (AUTO) 73.1 % (42.0-75.0); PLATELET COUNT 278 X10^3/uL (150.0-450.0); RED BLOOD COUNT 3.07 X10^6/uL (4.7-6.0); RED CELL DISTRIBUTION WIDTH 15.4 % (11.6-16.5); WHITE BLOOD COUNT 19.5 X10^3/uL (3.6-10.0)
[2024-06-29 06:20] LABS: ALANINE AMINOTRANSFERASE 7 Units/L (12-78); ALBUMIN 1.9 g/dL (3.4-5.0); ALKALINE PHOSPHATASE 52 Units/L (46-116); ASPARTATE AMINO TRANSFERASE 10 Units/L (15-37); BLOOD UREA NITROGEN 6 mg/dL (7-18); CALCIUM 8.5 mg/dL (8.5-10.1); CARBON DIOXIDE 26.8 mmol/L (21-32); CHLORIDE 105 mmol/L (98-107); COR CA(FOR HYPOALB) 10.2 mg/dL (8.5-10.1); COR NA(FOR HYPERGLY) 138 mmol/L (136-145); CREATININE 1.01 mg/dL (0.70-1.30); GLUCOSE 145 mg/dL (65-99); MAGNESIUM 1.5 mg/dL (2.0-2.9); POTASSIUM 3.6 mmol/L (3.5-5.1); SODIUM 137 mmol/L (136-145); TOTAL PROTEIN 5.3 g/dL (6.4-8.2); eGFR NON BLACK RACES > 60 (>60)
[2024-06-29] MEDS ORDERED: CONSULT PHARMACY - POTASSIUM & MAGNESIUM XX SCH (07:00)
[2024-06-29] MEDS: NS + KCL 20 MEQ/L 1,000 ML with MAGNESIUM SULFATE 50% INJ VIAL 2 G IV SCH (08:20)
[2024-06-29] MEDS ORDERED: MAG-OX TAB PO SCH (09:00)
[2024-06-29] MEDS ORDERED: K-DUR TAB 20 MEQ PO SCH (09:00)
--- NOTE | 2024-06-29 10:45 | PCM.PROG ---
Progress Note Progress Note for Day of Date of Exam: 06/29/24 Subjective Subjective: Patient seen at bedside, no acute events overnight. He is feeling slightly better, able to drink some liquids. His abdominal pain is about the same. He is admitted for generalized weakness, decreased appetite and abdominal distention. He has a hx of colon mass that needs resection. Patient has been cleared by Dr Jackson. Labs/imaging reviewed: -WBC 19.5 hemoglobin 8.3 K3.6 magnesium 1.5 -UA negative for infection Plan: Follow cardiology and surgery recommendations. Possible plan for surgery in the next few days. Patient has been off of aspirin and Plavix since Thursday. Continue hydration, replace electrolytes as needed. Diet as per surgery. Continue home medications. Monitor AM labs/imaging. Past Medical Family Social History Allergies: Allergies No Known Drug Allergies Allergy (Unknown, Verified 06/26/24 21:23) Onset Date: 04/16/2012 Vital Signs and I&O's Vital Signs: Vital Signs Temperature 98.7 F Pulse Rate [Right Brachial] 93 Respiratory Rate 20 Blood Pressure [Right Arm] 117/60 O2 Sat by Pulse Oximetry 100 Intake and Output: Intake & Output 06/26/24 06/27/24 06/28/24 06/29/24 23:59 23:59 23:59 23:59 Intake Total 2350 / 2350 2086 / 2086 893 / 893 Output Total 150 / 150 120 / 120 Balance 2350 / 2350 1936 / 1936 773 / 773 Physical Exam Oriented: Normal Eyes: Normal Nose: Normal Throat: Normal Respiratory: Generalized and Diminished Cardiovascular: Edema Auscultation: Bowel Sounds: Normal Tenderness: Periumbilical and Mild Skin: Normal Musculoskeletal: Normal Psychiatric: Normal Mood Description: Calm and Appropriate Affect: Normal Speech Pattern: Clear and Appropriate Laboratory and Diagnostics 06/29/24 05:50 06/29/24 05:50 Labs: 06/26/24 23:16 Blood Blood Culture - Preliminary 06/26/24 21:38 Blood Blood Culture - Preliminary Laboratory WBC 19.5 X10^3/uL (3.6-10.0) H 06/29/24 05:50 RBC 3.07 X10^6/uL (4.7-6.0) L 06/29/24 05:50 Hgb 8.3 g/dL (13.5-18.0) L 06/29/24 05:50 Hct 26.1 % (42.0-54.0) L 06/29/24 05:50 MCV 84.9 fL (80.0-100.0) 06/29/24 05:50 MCH 26.9 pg (27.0-34.0) L 06/29/24 05:50 MCHC 31.6 g/dL (33.0-35.0) L 06/29/24 05:50 RDW 15.4 % (11.6-16.5) 06/29/24 05:50 Plt Count 278 X10^3/uL (150.0-450.0) 06/29/24 05:50 Plt Count Comment Adequate (ADEQUATE) 06/28/24 05:49 MPV 7.5 fL (7.4-11.0) 06/29/24 05:50 Neut % (Auto) 73.1 % (42.0-75.0) 06/29/24 05:50 Lymph % (Auto) 16.9 % (21.0-51.0) L 06/29/24 05:50 [place] % (Auto) 8.0 % (0.0-13.0) 06/29/24 05:50 Eos % (Auto) 1.5 % (0.9-2.9) 06/29/24 05:50 Baso % (Auto) 0.5 % (0.2-1.0) 06/29/24 05:50 Neut # (Auto) 14.3 x10^3/uL (2.2-4.8) H 06/29/24 05:50 Lymph # (Auto) 3.3 X10^3/uL (1.3-2.9) H 06/29/24 05:50 [place] # (Auto) 1.6 x10^3/uL (0.3-0.8) H 06/29/24 05:50 Eos # (Auto) 0.3 x10^3/uL (0.0-0.2) H 06/29/24 05:50 Baso # (Auto) 0.1 X10^3/uL (0.0-0.1) 06/29/24 05:50 Absolute Nucleated RBC 0.0 /100WBC 06/29/24 05:50 Total Counted 100 06/28/24 05:49 Neutrophils % (Manual) 74 % (39-76) 06/28/24 05:49 Band Neutrophils % 2 % (0-10) 06/28/24 05:49 Lymphocytes % (Manual) 18 % (13-43) 06/28/24 05:49 Monocytes % (Manual) 3 % (4-9) L 06/28/24 05:49 Eosinophils % (Manual) 3 % (0-6) 06/28/24 05:49 Plt Morphology Comment Normal (NORMAL) 06/28/24 05:49 RBC Morphology Normal (NORMAL) 06/28/24 05:49 Hypochromasia Slight A 06/27/24 04:13 Sodium 137 mmol/L (136-145) 06/29/24 05:50 Corrected Sodium 138 mmol/L (136-145) 06/29/24 05:50 Potassium 3.6 mmol/L (3.5-5.1) 06/29/24 05:50 Chloride 105 mmol/L (98-107) 06/29/24 05:50 Carbon Dioxide 26.8 mmol/L (21-32) 06/29/24 05:50 BUN 6 mg/dL (7-18) L 06/29/24 05:50 Creatinine 1.01 mg/dL (0.70-1.30) 06/29/24 05:50 Est GFR (MDRD) Af Amer > 60 (>60) 06/29/24 05:50 Est GFR (MDRD) Non-Af > 60 (>60) 06/29/24 05:50 Glucose 145 mg/dL (65-99) H 06/29/24 05:50 POC Glucose (mg/dL) 141 mg/dL (65-99) H 06/29/24 05:23 Lactic Acid 1.9 mmol/L (0.4-2.0) 06/27/24 01:15 Calcium 8.5 mg/dL (8.5-10.1) 06/29/24 05:50 Corrected Calcium 10.2 mg/dL (8.5-10.1) H 06/29/24 05:50 Magnesium 1.5 mg/dL (2.0-2.9) L 06/29/24 05:50 Total Bilirubin 0.50 mg/dL (0.2-1.0) 06/29/24 05:50 AST 10 Units/L (15-37) L 06/29/24 05:50 ALT 7 Units/L (12-78) L 06/29/24 05:50 Alkaline Phosphatase 52 Units/L (46-116) 06/29/24 05:50 Total Protein 5.3 g/dL (6.4-8.2) L 06/29/24 05:50 Albumin 1.9 g/dL (3.4-5.0) L 06/29/24 05:50 Globulin 3.4 g/dL (2.5-4.5) 06/29/24 05:50 Albumin/Globulin Ratio 0.6 Ratio (1.1-2.1) L 06/29/24 05:50 Amylase 61 Units/L (25-115) 06/26/24 21:38 Lipase 20 Units/L (16-77) 06/26/24 21:38 Specimen Type Clean catch urine 06/27/24 07:48 Urine Color Yellow (YELLOW) 06/27/24 07:48 Urine Appearance Clear (CLEAR) 06/27/24 07:48 Urine pH 5.0 (5.0 - 8.0) 06/27/24 07:48 Ur Specific [place] 1.020 (1.000-1.030) 06/27/24 07:48 Urine Protein 2+ (NEGATIVE) 06/27/24 07:48 Urine Glucose (UA) 2+ (NEGATIVE) 06/27/24 07:48 Urine Ketones Negative (NEGATIVE) 06/27/24 07:48 Urine Blood Negative (NEGATIVE) 06/27/24 07:48 Urine Nitrite Negative (NEGATIVE) 06/27/24 07:48 Urine Bilirubin Negative (NEGATIVE) 06/27/24 07:48 Urine Urobilinogen Normal (NORMAL) 06/27/24 07:48 Ur Leukocyte Esterase Negative (NEGATIVE) 06/27/24 07:48 Urine RBC None seen /HPF (0-3) 06/27/24 07:48 Urine WBC 0-2 /HPF (0-5) 06/27/24 07:48 Ur Squamous Epith Cells Rare /HPF (NEGATIVE) 06/27/24 07:48 Calcium Oxalate Crystal Rare /HPF (NEGATIVE) 06/27/24 07:48 Other Crystals Few /HPF (NEGATIVE) 06/27/24 07:48 Urine Bacteria Negative /HPF (NEGATIVE) 06/27/24 07:48 Ur Culture Indicated? 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
--- NOTE | 2024-06-29 13:14 | NOTE.SOAP ---
Soap Note Note for Day of Date of Exam: 06/29/24 Subjective Data Subjective Data: tolerating liquid diet/moving bowels/not much abd pain Objective Data Objective Data: afeb p88 bp 115/56 labs wbc down to 19.5 hct 26 k 3.6 alb 1.9 Assessment Assessment: stroke 3 weeks ago- colon mass/cancer Plan Plan: surgery scheduled for thursday- off asa/plavix since thursday
[2024-06-29] MEDS: TYLENOL 325 MG TAB PO PRN (16:38)
[2024-06-29] MEDS: FLAGYL IV PREMIX 500 MG BAG 500 MG/100 ML BAG IV SCH (16:38)
[2024-06-30 04:56] LABS: HEMOGLOBIN 7.9 g/dL (13.5-18.0)
[2024-06-30 05:04] LABS: BASOPHILS % (AUTO) 0.2 % (0.2-1.0); EOSINOPHILS # (AUTO) 0.5 x10^3/uL (0.0-0.2); HEMATOCRIT 25.2 % (42.0-54.0); LYMPHOCYTES # (AUTO) 3.8 X10^3/uL (1.3-2.9); LYMPHOCYTES % (AUTO) 16.4 % (21.0-51.0); MEAN CORPUSCULAR HEMOGLOBIN 26.5 pg (27.0-34.0); MEAN CORPUSCULAR HGB CONC 31.2 g/dL (33.0-35.0); MEAN PLATELET VOLUME 7.6 fL (7.4-11.0); MONOCYTES % (AUTO) 8.4 % (0.0-13.0); PLATELET COUNT 270 X10^3/uL (150.0-450.0); RED BLOOD COUNT 2.96 X10^6/uL (4.7-6.0); RED CELL DISTRIBUTION WIDTH 15.2 % (11.6-16.5); WHITE BLOOD COUNT 23.3 X10^3/uL (3.6-10.0)
[2024-06-30 05:13] LABS: ALANINE AMINOTRANSFERASE 9 Units/L (12-78); ALBUMIN 1.7 g/dL (3.4-5.0); ALKALINE PHOSPHATASE 59 Units/L (46-116); ASPARTATE AMINO TRANSFERASE 11 Units/L (15-37); BLOOD UREA NITROGEN 6 mg/dL (7-18); CALCIUM 8.4 mg/dL (8.5-10.1); CARBON DIOXIDE 25.8 mmol/L (21-32); CHLORIDE 105 mmol/L (98-107); COR CA(FOR HYPOALB) 10.2 mg/dL (8.5-10.1); COR NA(FOR HYPERGLY) 140 mmol/L (136-145); CREATININE 0.94 mg/dL (0.70-1.30); GLUCOSE 150 mg/dL (65-99); MAGNESIUM 1.7 mg/dL (2.0-2.9); POTASSIUM 3.1 mmol/L (3.5-5.1); SODIUM 139 mmol/L (136-145); TOTAL PROTEIN 5.3 g/dL (6.4-8.2); eGFR NON BLACK RACES > 60 (>60)
[2024-06-30 05:54] LABS: ANISOCYTOSIS SLIGHT; BAND NEUTROPHILS % 1 % (0-10); PLATELET MORPHOLOGY COMMENT NORMAL (NORMAL)
[2024-06-30] MEDS ORDERED: CONSULT PHARMACY - POTASSIUM & MAGNESIUM XX SCH (07:00)
--- NOTE | 2024-06-30 08:54 | RAD ---
EXAMINATION:CHEST, 1 VIEWHISTORY:Sepsis, elevated temp, sigmoid colon carcinoma; .COMPARISON STUDY:Chest x-ray 06/02/2024TECHNIQUE:Single frontal view of the chestFINDINGS:Lungs are expanded. Mild cardiac silhouette enlargement. Normal pulmonary vascular pattern. CP angles are sharp. Bones are intact.IMPRESSION:Mild cardiac silhouette enlargement.THIS IS AN ELECTRONICALLY VERIFIED FINAL REPORT06/30/2024 8:51 AM - Electronically signed by Caryl Davis MD
[2024-06-30] MEDS ORDERED: MAG-OX TAB PO SCH (09:00)
[2024-06-30] MEDS ORDERED: K-DUR TAB 20 MEQ PO SCH (09:00)
[2024-06-30] MEDS: NS + KCL 40 MEQ/L 1,000 ML with MAGNESIUM SULFATE 50% INJ VIAL 2 G IV SCH (09:41)
[2024-06-30] MEDS: SUPREP BOWEL PREP KIT PO SCH (09:50)
--- NOTE | 2024-06-30 11:59 | PCM.PROG ---
Progress Note Progress Note for Day of Date of Exam: 06/30/24 Subjective Subjective: Patient is resting in bed this morning. His abdominal pain is about the same as yesterday. He is admitted for generalized weakness, decreased appetite and abdominal distention. He has a hx of colon mass that needs resection. Patient has been cleared by Dr Jackson. Labs/imaging reviewed: -WBC 23, hemoglobin 7.9, platelets 270, sodium 139, potassium 3.1, creatinine 0.94, glucose 150, chest x-ray negative, blood cultures negative, repeat blood cultures pending. -UA negative for infection Plan: Follow cardiology and surgery recommendations. Plan for surgery tomorrow. Will order respiratory panel. No further fevers. Patient has been off of aspirin and Plavix since Thursday. Continue hydration, replace electrolytes as needed. Diet as per surgery. Continue home medications. Monitor AM labs/imaging. Past Medical Family Social History Allergies: Allergies No Known Drug Allergies Allergy (Unknown, Verified 06/26/24 21:23) Onset Date: 04/16/2012 Review of Systems ROS changes noted: see HPI Vital Signs and I&O's Vital Signs: Vital Signs Temperature 97.2 F Temperature 98.5 F Pulse Rate [Right Brachial] 88 Pulse Rate [Right Brachial] 85 Respiratory Rate 18 Respiratory Rate 18 Blood Pressure [Right Arm] 110/55 Blood Pressure [Right Arm] 107/55 O2 Sat by Pulse Oximetry 98 O2 Sat by Pulse Oximetry 99 Intake and Output: Intake & Output 06/27/24 06/28/24 06/29/24 06/30/24 23:59 23:59 23:59 23:59 Intake Total 2350 / 2350 2086 / 2086 2213 / 2213 531 / 531 Output Total 150 / 150 620 / 620 Balance 2350 / 2350 1936 / 1936 1593 / 1593 531 / 531 Physical Exam Oriented: Normal Eyes: Normal Nose: Normal Throat: Normal Respiratory: Generalized and Diminished Cardiovascular: Edema Auscultation: Bowel Sounds: Normal Tenderness: Periumbilical and Mild Skin: Normal Musculoskeletal: Normal Psychiatric: Normal Mood Description: Calm and Appropriate Affect: Normal Speech Pattern: Clear and Appropriate Laboratory and Diagnostics 06/30/24 04:03 06/30/24 04:03 Labs: 06/26/24 23:16 Blood Blood Culture - Preliminary 06/26/24 21:38 Blood Blood Culture - Preliminary Laboratory WBC 23.3 X10^3/uL (3.6-10.0) H 06/30/24 04:03 RBC 2.96 X10^6/uL (4.7-6.0) L 06/30/24 04:03 Hgb 7.9 g/dL (13.5-18.0) L 06/30/24 04:03 Hct 25.2 % (42.0-54.0) L 06/30/24 04:03 MCV 85.0 fL (80.0-100.0) 06/30/24 04:03 MCH 26.5 pg (27.0-34.0) L 06/30/24 04:03 MCHC 31.2 g/dL (33.0-35.0) L 06/30/24 04:03 RDW 15.2 % (11.6-16.5) 06/30/24 04:03 Plt Count 270 X10^3/uL (150.0-450.0) 06/30/24 04:03 Plt Count Comment Adequate (ADEQUATE) 06/30/24 04:03 MPV 7.6 fL (7.4-11.0) 06/30/24 04:03 Neut % (Auto) 73.0 % (42.0-75.0) 06/30/24 04:03 Lymph % (Auto) 16.4 % (21.0-51.0) L 06/30/24 04:03 [place] % (Auto) 8.4 % (0.0-13.0) 06/30/24 04:03 Eos % (Auto) 2.0 % (0.9-2.9) 06/30/24 04:03 Baso % (Auto) 0.2 % (0.2-1.0) 06/30/24 04:03 Neut # (Auto) 17.0 x10^3/uL (2.2-4.8) H 06/30/24 04:03 Lymph # (Auto) 3.8 X10^3/uL (1.3-2.9) H 06/30/24 04:03 [place] # (Auto) 2.0 x10^3/uL (0.3-0.8) H 06/30/24 04:03 Eos # (Auto) 0.5 x10^3/uL (0.0-0.2) H 06/30/24 04:03 Baso # (Auto) 0.0 X10^3/uL (0.0-0.1) 06/30/24 04:03 Absolute Nucleated RBC 0.0 /100WBC 06/30/24 04:03 Total Counted 100 06/30/24 04:03 Neutrophils % (Manual) 69 % (39-76) 06/30/24 04:03 Band Neutrophils % 1 % (0-10) 06/30/24 04:03 Lymphocytes % (Manual) 27 % (13-43) 06/30/24 04:03 Monocytes % (Manual) 3 % (4-9) L 06/30/24 04:03 Eosinophils % (Manual) 3 % (0-6) 06/28/24 05:49 Plt Morphology Comment Normal (NORMAL) 06/30/24 04:03 RBC Morphology Abnormal (NORMAL) 06/30/24 04:03 Hypochromasia Slight A 06/27/24 04:13 Anisocytosis Slight A 06/30/24 04:03 Sodium 139 mmol/L (136-145) 06/30/24 04:03 Corrected Sodium 140 mmol/L (136-145) 06/30/24 04:03 Potassium 3.1 mmol/L (3.5-5.1) L 06/30/24 04:03 Chloride 105 mmol/L (98-107) 06/30/24 04:03 Carbon Dioxide 25.8 mmol/L (21-32) 06/30/24 04:03 BUN 6 mg/dL (7-18) L 06/30/24 04:03 Creatinine 0.94 mg/dL (0.70-1.30) 06/30/24 04:03 Est GFR (MDRD) Af Amer > 60 (>60) 06/30/24 04:03 Est GFR (MDRD) Non-Af > 60 (>60) 06/30/24 04:03 Glucose 150 mg/dL (65-99) H 06/30/24 04:03 POC Glucose (mg/dL) 138 mg/dL (65-99) H 06/30/24 05:54 Lactic Acid 1.9 mmol/L (0.4-2.0) 06/27/24 01:15 Calcium 8.4 mg/dL (8.5-10.1) L 06/30/24 04:03 Corrected Calcium 10.2 mg/dL (8.5-10.1) H 06/30/24 04:03 Magnesium 1.7 mg/dL (2.0-2.9) L 06/30/24 04:03 Total Bilirubin 0.40 mg/dL (0.2-1.0) 06/30/24 04:03 AST 11 Units/L (15-37) L 06/30/24 04:03 ALT 9 Units/L (12-78) L 06/30/24 04:03 Alkaline Phosphatase 59 Units/L (46-116) 06/30/24 04:03 Total Protein 5.3 g/dL (6.4-8.2) L 06/30/24 04:03 Albumin 1.7 g/dL (3.4-5.0) L 06/30/24 04:03 Globulin 3.6 g/dL (2.5-4.5) 06/30/24 04:03 Albumin/Globulin Ratio 0.5 Ratio (1.1-2.1) L 06/30/24 04:03 Amylase 61 Units/L (25-115) 06/26/24 21:38 Lipase 20 Units/L (16-77) 06/26/24 21:38 Specimen Type Clean catch urine 06/27/24 07:48 Urine Color Yellow (YELLOW) 06/27/24 07:48 Urine Appearance Clear (CLEAR) 06/27/24 07:48 Urine pH 5.0 (5.0 - 8.0) 06/27/24 07:48 Ur Specific [place] 1.020 (1.000-1.030) 06/27/24 07:48 Urine Protein 2+ (NEGATIVE) 06/27/24 07:48 Urine Glucose (UA) 2+ (NEGATIVE) 06/27/24 07:48 Urine Ketones Negative (NEGATIVE) 06/27/24 07:48 Urine Blood Negative (NEGATIVE) 06/27/24 07:48 Urine Nitrite Negative (NEGATIVE) 06/27/24 07:48 Urine Bilirubin Negative (NEGATIVE) 06/27/24 07:48 Urine Urobilinogen Normal (NORMAL) 06/27/24 07:48 Ur Leukocyte Esterase Negative (NEGATIVE) 06/27/24 07:48 Urine RBC None seen /HPF (0-3) 06/27/24 07:48 Urine WBC 0-2 /HPF (0-5) 06/27/24 07:48 Ur Squamous Epith Cells Rare /HPF (NEGATIVE) 06/27/24 07:48 Calcium Oxalate Crystal Rare /HPF (NEGATIVE) 06/27/24 07:48 Other Crystals Few /HPF (NEGATIVE) 06/27/24 07:48 Urine Bacteria Negative /HPF (NEGATIVE) 06/27/24 07:48 Ur Culture Indicated? 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
[2024-06-30] MEDS: NS 250 ML IV 25 ML IV PRN (14:39)
--- NOTE | 2024-06-30 17:31 | DR.PROGNOT ---
HOSPITAL PROGRESS NOTE Progress Note for Day of: Progress Note Date: 06/30/24 Chief Complaint Chief Complaint: No changes, still complaining of abdominal pain. No further nausea or vomiting and tolerating bowel prep. White count still elevated 23.3. Hemoglobin 7.9, potassium 3.1, blood sugar 150 and normal liver function test. No fever today. Past Medical Family Social History Allergies: Allergies No Known Drug Allergies Allergy (Unknown, Verified 06/26/24 21:23) Onset Date: 04/16/2012 Review Of Systems Changes in ROS: see HPI Vital Signs Vital Signs: Vital Signs Temperature 97.6 F Temperature 97.5 F Pulse Rate [Right Brachial] 98 Pulse Rate [Right Brachial] 99 Respiratory Rate 18 Respiratory Rate 17 Blood Pressure [Right Arm] 104/54 Blood Pressure [Right Arm] 129/64 O2 Sat by Pulse Oximetry 96 O2 Sat by Pulse Oximetry 100 Physical Exam Oriented: Normal Eyes: Normal Nose: Normal Throat: Normal Respiratory: Generalized and Diminished Cardiovascular: Edema GI:Auscultation: Normal GI: Tenderness: Periumbilical and Mild Skin: Normal Musculoskeletal: Normal Psychiatric: Normal Mood Description: Calm and Appropriate Affect: Normal Speech Pattern: Clear and Appropriate Laboratory and Diagnostics 06/30/24 04:03 06/30/24 04:03 Labs: 06/26/24 23:16 Blood Blood Culture - Preliminary 06/26/24 21:38 Blood Blood Culture - Preliminary Laboratory WBC 23.3 X10^3/uL (3.6-10.0) H 06/30/24 04:03 RBC 2.96 X10^6/uL (4.7-6.0) L 06/30/24 04:03 Hgb 7.9 g/dL (13.5-18.0) L 06/30/24 04:03 Hct 25.2 % (42.0-54.0) L 06/30/24 04:03 MCV 85.0 fL (80.0-100.0) 06/30/24 04:03 MCH 26.5 pg (27.0-34.0) L 06/30/24 04:03 MCHC 31.2 g/dL (33.0-35.0) L 06/30/24 04:03 RDW 15.2 % (11.6-16.5) 06/30/24 04:03 Plt Count 270 X10^3/uL (150.0-450.0) 06/30/24 04:03 Plt Count Comment Adequate (ADEQUATE) 06/30/24 04:03 MPV 7.6 fL (7.4-11.0) 06/30/24 04:03 Neut % (Auto) 73.0 % (42.0-75.0) 06/30/24 04:03 Lymph % (Auto) 16.4 % (21.0-51.0) L 06/30/24 04:03 [place] % (Auto) 8.4 % (0.0-13.0) 06/30/24 04:03 Eos % (Auto) 2.0 % (0.9-2.9) 06/30/24 04:03 Baso % (Auto) 0.2 % (0.2-1.0) 06/30/24 04:03 Neut # (Auto) 17.0 x10^3/uL (2.2-4.8) H 06/30/24 04:03 Lymph # (Auto) 3.8 X10^3/uL (1.3-2.9) H 06/30/24 04:03 [place] # (Auto) 2.0 x10^3/uL (0.3-0.8) H 06/30/24 04:03 Eos # (Auto) 0.5 x10^3/uL (0.0-0.2) H 06/30/24 04:03 Baso # (Auto) 0.0 X10^3/uL (0.0-0.1) 06/30/24 04:03 Absolute Nucleated RBC 0.0 /100WBC 06/30/24 04:03 Total Counted 100 06/30/24 04:03 Neutrophils % (Manual) 69 % (39-76) 06/30/24 04:03 Band Neutrophils % 1 % (0-10) 06/30/24 04:03 Lymphocytes % (Manual) 27 % (13-43) 06/30/24 04:03 Monocytes % (Manual) 3 % (4-9) L 06/30/24 04:03 Eosinophils % (Manual) 3 % (0-6) 06/28/24 05:49 Plt Morphology Comment Normal (NORMAL) 06/30/24 04:03 RBC Morphology Abnormal (NORMAL) 06/30/24 04:03 Hypochromasia Slight A 06/27/24 04:13 Anisocytosis Slight A 06/30/24 04:03 Sodium 139 mmol/L (136-145) 06/30/24 04:03 Corrected Sodium 140 mmol/L (136-145) 06/30/24 04:03 Potassium 3.1 mmol/L (3.5-5.1) L 06/30/24 04:03 Chloride 105 mmol/L (98-107) 06/30/24 04:03 Carbon Dioxide 25.8 mmol/L (21-32) 06/30/24 04:03 BUN 6 mg/dL (7-18) L 06/30/24 04:03 Creatinine 0.94 mg/dL (0.70-1.30) 06/30/24 04:03 Est GFR (MDRD) Af Amer > 60 (>60) 06/30/24 04:03 Est GFR (MDRD) Non-Af > 60 (>60) 06/30/24 04:03 Glucose 150 mg/dL (65-99) H 06/30/24 04:03 POC Glucose (mg/dL) 240 mg/dL (65-99) H 06/30/24 16:52 Lactic Acid 1.9 mmol/L (0.4-2.0) 06/27/24 01:15 Calcium 8.4 mg/dL (8.5-10.1) L 06/30/24 04:03 Corrected Calcium 10.2 mg/dL (8.5-10.1) H 06/30/24 04:03 Magnesium 1.7 mg/dL (2.0-2.9) L 06/30/24 04:03 Total Bilirubin 0.40 mg/dL (0.2-1.0) 06/30/24 04:03 AST 11 Units/L (15-37) L 06/30/24 04:03 ALT 9 Units/L (12-78) L 06/30/24 04:03 Alkaline Phosphatase 59 Units/L (46-116) 06/30/24 04:03 Total Protein 5.3 g/dL (6.4-8.2) L 06/30/24 04:03 Albumin 1.7 g/dL (3.4-5.0) L 06/30/24 04:03 Globulin 3.6 g/dL (2.5-4.5) 06/30/24 04:03 Albumin/Globulin Ratio 0.5 Ratio (1.1-2.1) L 06/30/24 04:03 Amylase 61 Units/L (25-115) 06/26/24 21:38 Lipase 20 Units/L (16-77) 06/26/24 21:38 Specimen Type Clean catch urine 06/27/24 07:48 Urine Color Yellow (YELLOW) 06/27/24 07:48 Urine Appearance Clear (CLEAR) 06/27/24 07:48 Urine pH 5.0 (5.0 - 8.0) 06/27/24 07:48 Ur Specific [place] 1.020 (1.000-1.030) 06/27/24 07:48 Urine Protein 2+ (NEGATIVE) 06/27/24 07:48 Urine Glucose (UA) 2+ (NEGATIVE) 06/27/24 07:48 Urine Ketones Negative (NEGATIVE) 06/27/24 07:48 Urine Blood Negative (NEGATIVE) 06/27/24 07:48 Urine Nitrite Negative (NEGATIVE) 06/27/24 07:48 Urine Bilirubin Negative (NEGATIVE) 06/27/24 07:48 Urine Urobilinogen Normal (NORMAL) 06/27/24 07:48 Ur Leukocyte Esterase Negative (NEGATIVE) 06/27/24 07:48 Urine RBC None seen /HPF (0-3) 06/27/24 07:48 Urine WBC 0-2 /HPF (0-5) 06/27/24 07:48 Ur Squamous Epith Cells Rare /HPF (NEGATIVE) 06/27/24 07:48 Calcium Oxalate Crystal Rare /HPF (NEGATIVE) 06/27/24 07:48 Other Crystals Few /HPF (NEGATIVE) 06/27/24 07:48 Urine Bacteria Negative /HPF (NEGATIVE) 06/27/24 07:48 Ur Culture Indicated? 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 Moderate anemia and low-grade fever. Recent CVA. We discussed the situation in details with the patient and his family, all risks were explained. For surgery in the morning. Will transfuse 1 unit of packed cells today and keep him on IV antibiotics. Problem Patient Problems: Patient Problems (Updated 06/28/24 @ 13:07 by Krystina Rowell) Sepsis (Acute) A41.9 TED (acute kidney injury) (Acute) N17.9 Cancer of sigmoid colon (Acute) C18.7
[2024-06-30] MEDS: CITROMA PO ONE (21:42)
[2024-07-01 07:22] LABS: BASOPHILS % (AUTO) 0.3 % (0.2-1.0); EOSINOPHILS # (AUTO) 0.4 x10^3/uL (0.0-0.2); EOSINOPHILS % (AUTO) 2.6 % (0.9-2.9); HEMATOCRIT 29.9 % (42.0-54.0); HEMOGLOBIN 9.4 g/dL (13.5-18.0); LYMPHOCYTES # (AUTO) 2.9 X10^3/uL (1.3-2.9); MEAN CORPUSCULAR HEMOGLOBIN 26.9 pg (27.0-34.0); MEAN CORPUSCULAR HGB CONC 31.4 g/dL (33.0-35.0); MEAN CORPUSCULAR VOLUME 85.6 fL (80.0-100.0); MEAN PLATELET VOLUME 7.5 fL (7.4-11.0); MONOCYTES # (AUTO) 1.5 x10^3/uL (0.3-0.8); MONOCYTES % (AUTO) 9.2 % (0.0-13.0); NEUTROPHILS # (AUTO) 11.1 x10^3/uL (2.2-4.8); NEUTROPHILS % (AUTO) 69.9 % (42.0-75.0); PLATELET COUNT 270 X10^3/uL (150.0-450.0); RED BLOOD COUNT 3.49 X10^6/uL (4.7-6.0); WHITE BLOOD COUNT 15.8 X10^3/uL (3.6-10.0)
[2024-07-01 07:25] LABS: ALANINE AMINOTRANSFERASE 9 Units/L (12-78); ALBUMIN 1.9 g/dL (3.4-5.0); ALKALINE PHOSPHATASE 52 Units/L (46-116); ASPARTATE AMINO TRANSFERASE 9 Units/L (15-37); BLOOD UREA NITROGEN 4 mg/dL (7-18); CALCIUM 8.2 mg/dL (8.5-10.1); CARBON DIOXIDE 24.4 mmol/L (21-32); CHLORIDE 106 mmol/L (98-107); COR CA(FOR HYPOALB) 9.9 mg/dL (8.5-10.1); COR NA(FOR HYPERGLY) 140 mmol/L (136-145); CREATININE 0.92 mg/dL (0.70-1.30); GLUCOSE 132 mg/dL (65-99); POTASSIUM 3.4 mmol/L (3.5-5.1); SODIUM 139 mmol/L (136-145); TOTAL PROTEIN 5.4 g/dL (6.4-8.2); eGFR NON BLACK RACES > 60 (>60)
[2024-07-01] MEDS ORDERED: CONSULT PHARMACY - POTASSIUM & MAGNESIUM XX SCH (09:00)
[2024-07-01] MEDS: FENTANYL VIAL INJ 250 mcg ONE (09:21)
[2024-07-01] MEDS: VERSED ONE (09:21)
[2024-07-01] MEDS: AMIDATE INJ 40 MG VIAL ONE (09:22)
[2024-07-01] MEDS: NS 1,000 ML IV 1,000 ML ONE ×3 (09:40→12:35)
[2024-07-01] MEDS: ZEMURON 100 MG VIAL ONE (09:46)
--- NOTE | 2024-07-01 09:57 | PCM.PROG ---
Progress Note Progress Note for Day of Date of Exam: 07/01/24 Subjective Subjective: Patient is resting in bed this morning. No acute events overnight. He has a hx of colon mass that needs resection. Patient has been cleared by Dr Jackson. Will be having surgery this morning. Labs/imaging reviewed: -WBC 15.8, hemoglobin 9.4, platelets 270, sodium 139, potassium 3.4, creatinine 0.92, glucose 132, chest x-ray negative, blood cultures negative -Respiratory panel negative Plan: Follow cardiology and surgery recommendations. Plan for surgery this morning. Patient has been off of aspirin and Plavix since Thursday. Continue hydration, replace electrolytes as needed. Diet as per surgery. Continue home medications. Monitor AM labs/imaging. Past Medical Family Social History Allergies: Allergies No Known Drug Allergies Allergy (Unknown, Verified 06/26/24 21:23) Onset Date: 04/16/2012 Review of Systems ROS changes noted: see HPI Vital Signs and I&O's Vital Signs: Vital Signs Temperature 98.1 F Pulse Rate [Right Brachial] 71 Respiratory Rate 17 Blood Pressure [Right Arm] 112/61 O2 Sat by Pulse Oximetry 100 Intake and Output: Intake & Output 06/28/24 06/29/24 06/30/24 07/01/24 23:59 23:59 23:59 23:59 Intake Total 2086 / 2086 2213 / 2213 3979 / 3979 1478 / 1478 Output Total 150 / 150 620 / 620 Balance 1936 / 1936 1593 / 1593 3979 / 3979 1478 / 1478 Physical Exam Oriented: Normal Eyes: Normal Nose: Normal Throat: Normal Respiratory: Generalized and Diminished Cardiovascular: Edema Auscultation: Bowel Sounds: Normal Tenderness: Periumbilical and Mild Skin: Normal Musculoskeletal: Normal Psychiatric: Normal Mood Description: Calm and Appropriate Affect: Normal Speech Pattern: Clear and Appropriate Laboratory and Diagnostics 07/01/24 06:53 07/01/24 06:53 Labs: 06/29/24 17:26 Blood Blood Culture - Preliminary 06/29/24 17:20 Blood Blood Culture - Preliminary 06/26/24 23:16 Blood Blood Culture - Preliminary 06/26/24 21:38 Blood Blood Culture - Preliminary Laboratory WBC 15.8 X10^3/uL (3.6-10.0) H 07/01/24 06:53 RBC 3.49 X10^6/uL (4.7-6.0) L 07/01/24 06:53 Hgb 9.4 g/dL (13.5-18.0) L 07/01/24 06:53 Hct 29.9 % (42.0-54.0) L 07/01/24 06:53 MCV 85.6 fL (80.0-100.0) 07/01/24 06:53 MCH 26.9 pg (27.0-34.0) L 07/01/24 06:53 MCHC 31.4 g/dL (33.0-35.0) L 07/01/24 06:53 RDW 15.0 % (11.6-16.5) 07/01/24 06:53 Plt Count 270 X10^3/uL (150.0-450.0) 07/01/24 06:53 Plt Count Comment Adequate (ADEQUATE) 06/30/24 04:03 MPV 7.5 fL (7.4-11.0) 07/01/24 06:53 Neut % (Auto) 69.9 % (42.0-75.0) 07/01/24 06:53 Lymph % (Auto) 18.0 % (21.0-51.0) L 07/01/24 06:53 [place] % (Auto) 9.2 % (0.0-13.0) 07/01/24 06:53 Eos % (Auto) 2.6 % (0.9-2.9) 07/01/24 06:53 Baso % (Auto) 0.3 % (0.2-1.0) 07/01/24 06:53 Neut # (Auto) 11.1 x10^3/uL (2.2-4.8) H 07/01/24 06:53 Lymph # (Auto) 2.9 X10^3/uL (1.3-2.9) 07/01/24 06:53 [place] # (Auto) 1.5 x10^3/uL (0.3-0.8) H 07/01/24 06:53 Eos # (Auto) 0.4 x10^3/uL (0.0-0.2) H 07/01/24 06:53 Baso # (Auto) 0.0 X10^3/uL (0.0-0.1) 07/01/24 06:53 Absolute Nucleated RBC 0.1 /100WBC 07/01/24 06:53 Total Counted 100 06/30/24 04:03 Neutrophils % (Manual) 69 % (39-76) 06/30/24 04:03 Band Neutrophils % 1 % (0-10) 06/30/24 04:03 Lymphocytes % (Manual) 27 % (13-43) 06/30/24 04:03 Monocytes % (Manual) 3 % (4-9) L 06/30/24 04:03 Eosinophils % (Manual) 3 % (0-6) 06/28/24 05:49 Plt Morphology Comment Normal (NORMAL) 06/30/24 04:03 RBC Morphology Abnormal (NORMAL) 06/30/24 04:03 Hypochromasia Slight A 06/27/24 04:13 Anisocytosis Slight A 06/30/24 04:03 Sodium 139 mmol/L (136-145) 07/01/24 06:53 Corrected Sodium 140 mmol/L (136-145) 07/01/24 06:53 Potassium 3.4 mmol/L (3.5-5.1) L 07/01/24 06:53 Chloride 106 mmol/L (98-107) 07/01/24 06:53 Carbon Dioxide 24.4 mmol/L (21-32) 07/01/24 06:53 BUN 4 mg/dL (7-18) L 07/01/24 06:53 Creatinine 0.92 mg/dL (0.70-1.30) 07/01/24 06:53 Est GFR (MDRD) Af Amer > 60 (>60) 07/01/24 06:53 Est GFR (MDRD) Non-Af > 60 (>60) 07/01/24 06:53 Glucose 132 mg/dL (65-99) H 07/01/24 06:53 POC Glucose (mg/dL) 126 mg/dL (65-99) H 07/01/24 05:59 Lactic Acid 1.9 mmol/L (0.4-2.0) 06/27/24 01:15 Calcium 8.2 mg/dL (8.5-10.1) L 07/01/24 06:53 Corrected Calcium 9.9 mg/dL (8.5-10.1) 07/01/24 06:53 Magnesium 1.7 mg/dL (2.0-2.9) L 06/30/24 04:03 Total Bilirubin 0.50 mg/dL (0.2-1.0) 07/01/24 06:53 AST 9 Units/L (15-37) L 07/01/24 06:53 ALT 9 Units/L (12-78) L 07/01/24 06:53 Alkaline Phosphatase 52 Units/L (46-116) 07/01/24 06:53 Total Protein 5.4 g/dL (6.4-8.2) L 07/01/24 06:53 Albumin 1.9 g/dL (3.4-5.0) L 07/01/24 06:53 Globulin 3.5 g/dL (2.5-4.5) 07/01/24 06:53 Albumin/Globulin Ratio 0.5 Ratio (1.1-2.1) L 07/01/24 06:53 Amylase 61 Units/L (25-115) 06/26/24 21:38 Lipase 20 Units/L (16-77) 06/26/24 21:38 Specimen Type Clean catch urine 06/27/24 07:48 Urine Color Yellow (YELLOW) 06/27/24 07:48 Urine Appearance Clear (CLEAR) 06/27/24 07:48 Urine pH 5.0 (5.0 - 8.0) 06/27/24 07:48 Ur Specific [place] 1.020 (1.000-1.030) 06/27/24 07:48 Urine Protein 2+ (NEGATIVE) 06/27/24 07:48 Urine Glucose (UA) 2+ (NEGATIVE) 06/27/24 07:48 Urine Ketones Negative (NEGATIVE) 06/27/24 07:48 Urine Blood Negative (NEGATIVE) 06/27/24 07:48 Urine Nitrite Negative (NEGATIVE) 06/27/24 07:48 Urine Bilirubin Negative (NEGATIVE) 06/27/24 07:48 Urine Urobilinogen Normal (NORMAL) 06/27/24 07:48 Ur Leukocyte Esterase Negative (NEGATIVE) 06/27/24 07:48 Urine RBC None seen /HPF (0-3) 06/27/24 07:48 Urine WBC 0-2 /HPF (0-5) 06/27/24 07:48 Ur Squamous Epith Cells Rare /HPF (NEGATIVE) 06/27/24 07:48 Calcium Oxalate Crystal Rare /HPF (NEGATIVE) 06/27/24 07:48 Other Crystals Few /HPF (NEGATIVE) 06/27/24 07:48 Urine Bacteria Negative /HPF (NEGATIVE) 06/27/24 07:48 Ur Culture Indicated? 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
[2024-07-01] MEDS: EPHEDRINE SULFATE INJ ONE (10:06)
[2024-07-01] MEDS: NEO-SYNEPHRINE INJ ONE (10:06)
[2024-07-01] MEDS ORDERED: ULTANE GAS IN ONE (10:11)
[2024-07-01] MEDS ORDERED: XYLOCAINE 2 % (PLAIN) ONE (10:11)
[2024-07-01] MEDS: ANCEF VIAL 1 GRAM ONE (10:29)
[2024-07-01] MEDS: NS 100 ML IV 100 ML ONE (10:29)
[2024-07-01] MEDS: POLYMYXIN B SULFATE ONE (10:59)
[2024-07-01] MEDS: FENTANYL VIAL INJ 100 mcg ONE (12:03)
[2024-07-01] MEDS: NS 500 ML IV 500 ML IV ONE (12:14)
[2024-07-01] MEDS: MARCAINE 0.5% ONE (13:03)
[2024-07-01] MEDS: BRIDION ONE (13:12)
[2024-07-01] MEDS ORDERED: ZOFRAN INJ 4 MG VIAL IVP PRN (13:15)
[2024-07-01] MEDS ORDERED: BENADRYL INJ 50 MG VIAL IVP PRN (13:15)
[2024-07-01] MEDS: ULTANE GAS IN ONE (13:30)
[2024-07-01] MEDS ORDERED: NS 250 ML IV 25 ML IV PRN (13:55)
[2024-07-01] MEDS: DILAUDID INJ IVP PRN ×2 (14:21→17:15)
[2024-07-01 14:40] LABS: BASOPHILS % (AUTO) 0.2 % (0.2-1.0); HEMOGLOBIN 11.7 g/dL (13.5-18.0); MEAN CORPUSCULAR HGB CONC 31.8 g/dL (33.0-35.0)
--- NOTE | 2024-07-01 14:48 | RAD ---
EXAM:CHEST, 1 VIEWHISTORY:CENTRAL LINE PLACEMENT;COMPARISON:No relevant prior studies were available for comparison at the time of interpretation.TECHNIQUE:CHEST, 1 VIEWFINDINGS:Chest:Lines and tubes: Right IJ approach central catheter is seen with its tip in satisfactory positionMediastinum: Cardiomegaly.Pulmonary vessels: No pulmonary vascular congestion.Lung fowler: No suspicious airspace opacity.Pleura: No effusion. No pneumothorax.Bones and soft tissues: No acute osseous or soft tissue abnormality.IMPRESSION:1. No acute cardiopulmonary abnormalityTHIS IS AN ELECTRONICALLY VERIFIED FINAL REPORT07/01/2024 2:46 PM - Electronically signed by Zeke Sanders MD
[2024-07-01 14:50] LABS: EOSINOPHILS # (AUTO) 0.1 x10^3/uL (0.0-0.2); EOSINOPHILS % (AUTO) 0.6 % (0.9-2.9); HEMATOCRIT 36.8 % (42.0-54.0); LYMPHOCYTES # (AUTO) 2.9 X10^3/uL (1.3-2.9); LYMPHOCYTES % (AUTO) 17.6 % (21.0-51.0); MEAN CORPUSCULAR HEMOGLOBIN 27.6 pg (27.0-34.0); MEAN CORPUSCULAR VOLUME 86.6 fL (80.0-100.0); MEAN PLATELET VOLUME 7.4 fL (7.4-11.0); MONOCYTES # (AUTO) 0.9 x10^3/uL (0.3-0.8); MONOCYTES % (AUTO) 5.2 % (0.0-13.0); NEUTROPHILS # (AUTO) 12.7 x10^3/uL (2.2-4.8); NEUTROPHILS % (AUTO) 76.4 % (42.0-75.0); PLATELET COUNT 264 X10^3/uL (150.0-450.0); RED BLOOD COUNT 4.25 X10^6/uL (4.7-6.0); RED CELL DISTRIBUTION WIDTH 15.9 % (11.6-16.5); WHITE BLOOD COUNT 16.6 X10^3/uL (3.6-10.0)
[2024-07-01 14:52] LABS: ALANINE AMINOTRANSFERASE 6 Units/L (12-78); ALBUMIN 1.7 g/dL (3.4-5.0); ALKALINE PHOSPHATASE 50 Units/L (46-116); ASPARTATE AMINO TRANSFERASE 12 Units/L (15-37); BLOOD UREA NITROGEN 4 mg/dL (7-18); CALCIUM 7.7 mg/dL (8.5-10.1); CARBON DIOXIDE 20.6 mmol/L (21-32); CHLORIDE 108 mmol/L (98-107); COR CA(FOR HYPOALB) 9.5 mg/dL (8.5-10.1); COR NA(FOR HYPERGLY) 142 mmol/L (136-145); CREATININE 0.92 mg/dL (0.70-1.30); GLUCOSE 231 mg/dL (65-99); POTASSIUM 3.8 mmol/L (3.5-5.1); SODIUM 139 mmol/L (136-145); TOTAL PROTEIN 4.9 g/dL (6.4-8.2); eGFR NON BLACK RACES > 60 (>60)
[2024-07-01] MEDS ORDERED: NS 250 ML IV 250 ML IV ONE (15:15)
[2024-07-01] MEDS: KCL IV SCH (15:18)
[2024-07-01] MEDS: D5 IV SCH (15:18)
[2024-07-01] MEDS: 1/2 NS IV SCH (15:18)
[2024-07-01] MEDS: MAGNESIUM SULFATE IV SCH (15:18)
[2024-07-01] MEDS: D5 1/2 NS 1,000 ML 1,000 ML IV SCH (15:19)
[2024-07-01] MEDS: DILAUDID INJ ONE (16:49)
[2024-07-01] MEDS: ZOSYN VIAL 3.375 GRAMS 3.375 G in NS 100 ML IV 100 ML IV SCH (17:09)
[2024-07-02] MEDS: ZOSYN VIAL 3.375 GRAMS 3.375 G in NS 100 ML IV 100 ML IV SCH (01:18)
[2024-07-02] MEDS: D5 1/2 NS 1,000 ML 1,000 ML IV SCH (01:18)
[2024-07-02 05:12] LABS: ALANINE AMINOTRANSFERASE < 6 Units/L (12-78); ALBUMIN 1.5 g/dL (3.4-5.0); ALKALINE PHOSPHATASE 47 Units/L (46-116); ASPARTATE AMINO TRANSFERASE 10 Units/L (15-37); BLOOD UREA NITROGEN 4 mg/dL (7-18); CALCIUM 7.6 mg/dL (8.5-10.1); CARBON DIOXIDE 22.2 mmol/L (21-32); CHLORIDE 106 mmol/L (98-107); COR CA(FOR HYPOALB) 9.6 mg/dL (8.5-10.1); COR NA(FOR HYPERGLY) 141 mmol/L (136-145); CREATININE 0.98 mg/dL (0.70-1.30); GLUCOSE 326 mg/dL (65-99); MAGNESIUM 1.5 mg/dL (2.0-2.9); POTASSIUM 3.8 mmol/L (3.5-5.1); SODIUM 136 mmol/L (136-145); TOTAL PROTEIN 4.6 g/dL (6.4-8.2); eGFR NON BLACK RACES > 60 (>60)
[2024-07-02 05:42] LABS: BASOPHILS % (AUTO) 0.1 % (0.2-1.0); EOSINOPHILS # (AUTO) 0.1 x10^3/uL (0.0-0.2); EOSINOPHILS % (AUTO) 0.3 % (0.9-2.9); HEMATOCRIT 34.7 % (42.0-54.0); HEMOGLOBIN 11.1 g/dL (13.5-18.0); LYMPHOCYTES # (AUTO) 1.5 X10^3/uL (1.3-2.9); MEAN CORPUSCULAR HEMOGLOBIN 27.4 pg (27.0-34.0); MEAN CORPUSCULAR VOLUME 85.6 fL (80.0-100.0); MEAN PLATELET VOLUME 7.8 fL (7.4-11.0); MONOCYTES # (AUTO) 1.5 x10^3/uL (0.3-0.8); MONOCYTES % (AUTO) 6.8 % (0.0-13.0); NEUTROPHILS # (AUTO) 18.3 x10^3/uL (2.2-4.8); NEUTROPHILS % (AUTO) 85.8 % (42.0-75.0); PLATELET COUNT 278 X10^3/uL (150.0-450.0); RED BLOOD COUNT 4.06 X10^6/uL (4.7-6.0); WHITE BLOOD COUNT 21.3 X10^3/uL (3.6-10.0)
[2024-07-02] MEDS ORDERED: CONSULT PHARMACY - POTASSIUM & MAGNESIUM XX SCH ×2 (06:00)
[2024-07-02 06:24] LABS: BAND NEUTROPHILS % 1 % (0-10)
[2024-07-02 06:25] LABS: PLATELET MORPHOLOGY COMMENT NORMAL (NORMAL)
[2024-07-02] MEDS ORDERED: MAG-OX TAB PO SCH (09:00)
[2024-07-02] MEDS ORDERED: PROTONIX INJ 40 MG VIAL IVP SCH (09:00)
[2024-07-02] MEDS ORDERED: K-DUR TAB 20 MEQ PO SCH (09:00)
--- NOTE | 2024-07-02 09:04 | DR.PROGNOT ---
HOSPITAL PROGRESS NOTE Progress Note for Day of: Progress Note Date: 07/02/24 Chief Complaint Chief Complaint: PO day 1 . s/p laparotomy resection of large perforated sigmoid tumor and partial small bowel rsection . Awake , alert, and stable . WBC 21.3 . Hgb 11.1. BS 326. [place] 1.5 afebrile .. Past Medical Family Social History Allergies: Allergies No Known Drug Allergies Allergy (Unknown, Verified 06/26/24 21:23) Onset Date: 04/16/2012 Review Of Systems Changes in ROS: see HPI Vital Signs Vital Signs: Vital Signs Temperature 98.9 F Temperature 98.9 F Pulse Rate [Apical] 101 Pulse Rate [Apical] 97 Pulse Rate [Apical] 97 Pulse Rate [Apical] 102 Pulse Rate [Apical] 102 Pulse Rate [Apical] 103 Respiratory Rate 18 Respiratory Rate 16 Respiratory Rate 20 Respiratory Rate 19 Respiratory Rate 18 Respiratory Rate 20 Respiratory Rate 20 Respiratory Rate 21 Blood Pressure [Right Arm] 114/65 Blood Pressure [Right Arm] 127/67 Blood Pressure [Right Arm] 129/75 Blood Pressure [Right Arm] 127/86 Blood Pressure [Right Arm] 116/64 Blood Pressure [Right Arm] 108/62 O2 Sat by Pulse Oximetry 99 O2 Sat by Pulse Oximetry 99 O2 Sat by Pulse Oximetry 98 O2 Sat by Pulse Oximetry 98 O2 Sat by Pulse Oximetry 99 O2 Sat by Pulse Oximetry 98 Physical Exam Oriented: Normal Eyes: Normal Nose: Normal Throat: Normal Respiratory: Generalized and Diminished GI:Auscultation: Normal GI:Palpation: Other (soft abdomen .. BS hypoactive ) GI: Tenderness: Periumbilical and Mild Skin: Normal Musculoskeletal: Normal Psychiatric: Normal Mood Description: Calm Affect: Normal Speech Pattern: Clear and Appropriate Laboratory and Diagnostics 07/02/24 04:11 07/02/24 04:11 Labs: 06/29/24 17:26 Blood Blood Culture - Preliminary 06/29/24 17:20 Blood Blood Culture - Preliminary 06/26/24 23:16 Blood Blood Culture - Preliminary 06/26/24 21:38 Blood Blood Culture - Preliminary Laboratory WBC 21.3 X10^3/uL (3.6-10.0) H 07/02/24 04:11 RBC 4.06 X10^6/uL (4.7-6.0) L 07/02/24 04:11 Hgb 11.1 g/dL (13.5-18.0) L 07/02/24 04:11 Hct 34.7 % (42.0-54.0) L 07/02/24 04:11 MCV 85.6 fL (80.0-100.0) 07/02/24 04:11 MCH 27.4 pg (27.0-34.0) 07/02/24 04:11 MCHC 32.0 g/dL (33.0-35.0) L 07/02/24 04:11 RDW 16.0 % (11.6-16.5) 07/02/24 04:11 Plt Count 278 X10^3/uL (150.0-450.0) 07/02/24 04:11 Plt Count Comment Adequate (ADEQUATE) 07/02/24 04:11 MPV 7.8 fL (7.4-11.0) 07/02/24 04:11 Neut % (Auto) 85.8 % (42.0-75.0) H 07/02/24 04:11 Lymph % (Auto) 7.0 % (21.0-51.0) L 07/02/24 04:11 [place] % (Auto) 6.8 % (0.0-13.0) 07/02/24 04:11 Eos % (Auto) 0.3 % (0.9-2.9) L 07/02/24 04:11 Baso % (Auto) 0.1 % (0.2-1.0) L 07/02/24 04:11 Neut # (Auto) 18.3 x10^3/uL (2.2-4.8) H 07/02/24 04:11 Lymph # (Auto) 1.5 X10^3/uL (1.3-2.9) 07/02/24 04:11 [place] # (Auto) 1.5 x10^3/uL (0.3-0.8) H 07/02/24 04:11 Eos # (Auto) 0.1 x10^3/uL (0.0-0.2) 07/02/24 04:11 Baso # (Auto) 0.0 X10^3/uL (0.0-0.1) 07/02/24 04:11 Absolute Nucleated RBC 0.0 /100WBC 07/02/24 04:11 Total Counted 100 07/02/24 04:11 Neutrophils % (Manual) 86 % (39-76) H 07/02/24 04:11 Band Neutrophils % 1 % (0-10) 07/02/24 04:11 Lymphocytes % (Manual) 7 % (13-43) L 07/02/24 04:11 Monocytes % (Manual) 6 % (4-9) 07/02/24 04:11 Eosinophils % (Manual) 3 % (0-6) 06/28/24 05:49 Plt Morphology Comment Normal (NORMAL) 07/02/24 04:11 RBC Morphology Normal (NORMAL) 07/02/24 04:11 Hypochromasia Slight A 06/27/24 04:13 Anisocytosis Slight A 06/30/24 04:03 Sodium 136 mmol/L (136-145) 07/02/24 04:11 Corrected Sodium 141 mmol/L (136-145) 07/02/24 04:11 Potassium 3.8 mmol/L (3.5-5.1) 07/02/24 04:11 Chloride 106 mmol/L (98-107) 07/02/24 04:11 Carbon Dioxide 22.2 mmol/L (21-32) 07/02/24 04:11 BUN 4 mg/dL (7-18) L 07/02/24 04:11 Creatinine 0.98 mg/dL (0.70-1.30) 07/02/24 04:11 Est GFR (MDRD) Af Amer > 60 (>60) 07/02/24 04:11 Est GFR (MDRD) Non-Af > 60 (>60) 07/02/24 04:11 Glucose 326 mg/dL (65-99) H 07/02/24 04:11 POC Glucose (mg/dL) 277 mg/dL (65-99) H 07/02/24 05:17 Lactic Acid 1.9 mmol/L (0.4-2.0) 06/27/24 01:15 Calcium 7.6 mg/dL (8.5-10.1) L 07/02/24 04:11 Corrected Calcium 9.6 mg/dL (8.5-10.1) 07/02/24 04:11 Magnesium 1.5 mg/dL (2.0-2.9) L 07/02/24 04:11 Total Bilirubin 0.70 mg/dL (0.2-1.0) 07/02/24 04:11 AST 10 Units/L (15-37) L 07/02/24 04:11 ALT < 6 Units/L (12-78) L 07/02/24 04:11 Alkaline Phosphatase 47 Units/L (46-116) 07/02/24 04:11 Total Protein 4.6 g/dL (6.4-8.2) L 07/02/24 04:11 Albumin 1.5 g/dL (3.4-5.0) L 07/02/24 04:11 Globulin 3.1 g/dL (2.5-4.5) 07/02/24 04:11 Albumin/Globulin Ratio 0.5 Ratio (1.1-2.1) L 07/02/24 04:11 Amylase 61 Units/L (25-115) 06/26/24 21:38 Lipase 20 Units/L (16-77) 06/26/24 21:38 Specimen Type Clean catch urine 06/27/24 07:48 Urine Color Yellow (YELLOW) 06/27/24 07:48 Urine Appearance Clear (CLEAR) 06/27/24 07:48 Urine pH 5.0 (5.0 - 8.0) 06/27/24 07:48 Ur Specific [place] 1.020 (1.000-1.030) 06/27/24 07:48 Urine Protein 2+ (NEGATIVE) 06/27/24 07:48 Urine Glucose (UA) 2+ (NEGATIVE) 06/27/24 07:48 Urine Ketones Negative (NEGATIVE) 06/27/24 07:48 Urine Blood Negative (NEGATIVE) 06/27/24 07:48 Urine Nitrite Negative (NEGATIVE) 06/27/24 07:48 Urine Bilirubin Negative (NEGATIVE) 06/27/24 07:48 Urine Urobilinogen Normal (NORMAL) 06/27/24 07:48 Ur Leukocyte Esterase Negative (NEGATIVE) 06/27/24 07:48 Urine RBC None seen /HPF (0-3) 06/27/24 07:48 Urine WBC 0-2 /HPF (0-5) 06/27/24 07:48 Ur Squamous Epith Cells Rare /HPF (NEGATIVE) 06/27/24 07:48 Calcium Oxalate Crystal Rare /HPF (NEGATIVE) 06/27/24 07:48 Other Crystals Few /HPF (NEGATIVE) 06/27/24 07:48 Urine Bacteria Negative /HPF (NEGATIVE) 06/27/24 07:48 Ur Culture Indicated? 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 OOB , incentive spirometer , DVT prophylaxis , OOB . 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
[2024-07-02] MEDS: LOVENOX INJ 40 MG SYR SC SCH (09:47)
[2024-07-02] MEDS: D5 1/2 NS 1,000 ML 1,000 ML with MAGNESIUM SULFATE 50% INJ VIAL 1 G IV SCH (12:32)
--- NOTE | 2024-07-02 12:49 | PCM.PROG ---
Progress Note Progress Note for Day of Date of Exam: 07/02/24 Subjective Subjective: Patient is resting in bed this morning. No acute events overnight. 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 Labs/imaging: Wbc 21, hemoglobin 11.1, platelets 278, sodium 136, potassium 3.8, creatinine 0.98, glucose 326. Follow surgery recommendations. OOB , incentive spirometer , DVT prophylaxis. Will need to restart aspirin and Plavix when appropriate. Continue hydration, replace electrolytes as needed. Diet as per surgery. Continue home medications. Monitor AM labs/imaging. Past Medical Family Social History Allergies: Allergies No Known Drug Allergies Allergy (Unknown, Verified 06/26/24 21:23) Onset Date: 04/16/2012 Review of Systems ROS changes noted: see HPI Vital Signs and I&O's Vital Signs: Vital Signs Temperature 98.4 F Temperature 98.9 F Pulse Rate [Apical] 92 Pulse Rate [Apical] 96 Pulse Rate [Apical] 97 Pulse Rate [Apical] 98 Pulse Rate [Apical] 101 Pulse Rate [Apical] 97 Respiratory Rate 20 Respiratory Rate 19 Respiratory Rate 17 Respiratory Rate 20 Respiratory Rate 18 Respiratory Rate 16 Respiratory Rate 20 Respiratory Rate 19 Blood Pressure [Right Arm] 97/52 Blood Pressure [Right Arm] 97/52 Blood Pressure [Right Arm] 88/52 Blood Pressure [Right Arm] 125/66 Blood Pressure [Right Arm] 114/65 Blood Pressure [Right Arm] 127/67 O2 Sat by Pulse Oximetry 99 O2 Sat by Pulse Oximetry 99 O2 Sat by Pulse Oximetry 100 O2 Sat by Pulse Oximetry 99 O2 Sat by Pulse Oximetry 99 O2 Sat by Pulse Oximetry 99 Intake and Output: Intake & Output 06/29/24 06/30/24 07/01/24 07/02/24 23:59 23:59 23:59 23:59 Intake Total 2213 / 2213 3979 / 3979 17185 / 99888 1170 / 1170 Output Total 620 / 620 3147 / 3202 472 / 472 Balance 1593 / 1593 3979 / 3979 7385 / 7330 698 / 698 Physical Exam Oriented: Normal Eyes: Normal Nose: Normal Throat: Normal Respiratory: Generalized and Diminished Cardiovascular: Normal Auscultation: Bowel Sounds: Normal Tenderness: Periumbilical and Mild Skin: Normal Musculoskeletal: Normal Psychiatric: Normal Mood Description: Calm Affect: Normal Speech Pattern: Clear and Appropriate Laboratory and Diagnostics 07/02/24 04:11 07/02/24 04:11 Labs: 06/26/24 23:16 Blood Blood Culture - Final 06/26/24 21:38 Blood Blood Culture - Final 06/29/24 17:26 Blood Blood Culture - Preliminary 06/29/24 17:20 Blood Blood Culture - Preliminary Laboratory WBC 21.3 X10^3/uL (3.6-10.0) H 07/02/24 04:11 RBC 4.06 X10^6/uL (4.7-6.0) L 07/02/24 04:11 Hgb 11.1 g/dL (13.5-18.0) L 07/02/24 04:11 Hct 34.7 % (42.0-54.0) L 07/02/24 04:11 MCV 85.6 fL (80.0-100.0) 07/02/24 04:11 MCH 27.4 pg (27.0-34.0) 07/02/24 04:11 MCHC 32.0 g/dL (33.0-35.0) L 07/02/24 04:11 RDW 16.0 % (11.6-16.5) 07/02/24 04:11 Plt Count 278 X10^3/uL (150.0-450.0) 07/02/24 04:11 Plt Count Comment Adequate (ADEQUATE) 07/02/24 04:11 MPV 7.8 fL (7.4-11.0) 07/02/24 04:11 Neut % (Auto) 85.8 % (42.0-75.0) H 07/02/24 04:11 Lymph % (Auto) 7.0 % (21.0-51.0) L 07/02/24 04:11 [place] % (Auto) 6.8 % (0.0-13.0) 07/02/24 04:11 Eos % (Auto) 0.3 % (0.9-2.9) L 07/02/24 04:11 Baso % (Auto) 0.1 % (0.2-1.0) L 07/02/24 04:11 Neut # (Auto) 18.3 x10^3/uL (2.2-4.8) H 07/02/24 04:11 Lymph # (Auto) 1.5 X10^3/uL (1.3-2.9) 07/02/24 04:11 [place] # (Auto) 1.5 x10^3/uL (0.3-0.8) H 07/02/24 04:11 Eos # (Auto) 0.1 x10^3/uL (0.0-0.2) 07/02/24 04:11 Baso # (Auto) 0.0 X10^3/uL (0.0-0.1) 07/02/24 04:11 Absolute Nucleated RBC 0.0 /100WBC 07/02/24 04:11 Total Counted 100 07/02/24 04:11 Neutrophils % (Manual) 86 % (39-76) H 07/02/24 04:11 Band Neutrophils % 1 % (0-10) 07/02/24 04:11 Lymphocytes % (Manual) 7 % (13-43) L 07/02/24 04:11 Monocytes % (Manual) 6 % (4-9) 07/02/24 04:11 Eosinophils % (Manual) 3 % (0-6) 06/28/24 05:49 Plt Morphology Comment Normal (NORMAL) 07/02/24 04:11 RBC Morphology Normal (NORMAL) 07/02/24 04:11 Hypochromasia Slight A 06/27/24 04:13 Anisocytosis Slight A 06/30/24 04:03 Sodium 136 mmol/L (136-145) 07/02/24 04:11 Corrected Sodium 141 mmol/L (136-145) 07/02/24 04:11 Potassium 3.8 mmol/L (3.5-5.1) 07/02/24 04:11 Chloride 106 mmol/L (98-107) 07/02/24 04:11 Carbon Dioxide 22.2 mmol/L (21-32) 07/02/24 04:11 BUN 4 mg/dL (7-18) L 07/02/24 04:11 Creatinine 0.98 mg/dL (0.70-1.30) 07/02/24 04:11 Est GFR (MDRD) Af Amer > 60 (>60) 07/02/24 04:11 Est GFR (MDRD) Non-Af > 60 (>60) 07/02/24 04:11 Glucose 326 mg/dL (65-99) H 07/02/24 04:11 POC Glucose (mg/dL) 298 mg/dL (65-99) H 07/02/24 12:14 Lactic Acid 1.9 mmol/L (0.4-2.0) 06/27/24 01:15 Calcium 7.6 mg/dL (8.5-10.1) L 07/02/24 04:11 Corrected Calcium 9.6 mg/dL (8.5-10.1) 07/02/24 04:11 Magnesium 1.5 mg/dL (2.0-2.9) L 07/02/24 04:11 Total Bilirubin 0.70 mg/dL (0.2-1.0) 07/02/24 04:11 AST 10 Units/L (15-37) L 07/02/24 04:11 ALT < 6 Units/L (12-78) L 07/02/24 04:11 Alkaline Phosphatase 47 Units/L (46-116) 07/02/24 04:11 Total Protein 4.6 g/dL (6.4-8.2) L 07/02/24 04:11 Albumin 1.5 g/dL (3.4-5.0) L 07/02/24 04:11 Globulin 3.1 g/dL (2.5-4.5) 07/02/24 04:11 Albumin/Globulin Ratio 0.5 Ratio (1.1-2.1) L 07/02/24 04:11 Amylase 61 Units/L (25-115) 06/26/24 21:38 Lipase 20 Units/L (16-77) 06/26/24 21:38 Specimen Type Clean catch urine 06/27/24 07:48 Urine Color Yellow (YELLOW) 06/27/24 07:48 Urine Appearance Clear (CLEAR) 06/27/24 07:48 Urine pH 5.0 (5.0 - 8.0) 06/27/24 07:48 Ur Specific [place] 1.020 (1.000-1.030) 06/27/24 07:48 Urine Protein 2+ (NEGATIVE) 06/27/24 07:48 Urine Glucose (UA) 2+ (NEGATIVE) 06/27/24 07:48 Urine Ketones Negative (NEGATIVE) 06/27/24 07:48 Urine Blood Negative (NEGATIVE) 06/27/24 07:48 Urine Nitrite Negative (NEGATIVE) 06/27/24 07:48 Urine Bilirubin Negative (NEGATIVE) 06/27/24 07:48 Urine Urobilinogen Normal (NORMAL) 06/27/24 07:48 Ur Leukocyte Esterase Negative (NEGATIVE) 06/27/24 07:48 Urine RBC None seen /HPF (0-3) 06/27/24 07:48 Urine WBC 0-2 /HPF (0-5) 06/27/24 07:48 Ur Squamous Epith Cells Rare /HPF (NEGATIVE) 06/27/24 07:48 Calcium Oxalate Crystal Rare /HPF (NEGATIVE) 06/27/24 07:48 Other Crystals Few /HPF (NEGATIVE) 06/27/24 07:48 Urine Bacteria Negative /HPF (NEGATIVE) 06/27/24 07:48 Ur Culture Indicated? 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
[2024-07-03 05:05] LABS: BASOPHILS # (AUTO) 0.1 X10^3/uL (0.0-0.1); BASOPHILS % (AUTO) 0.4 % (0.2-1.0); EOSINOPHILS # (AUTO) 0.1 x10^3/uL (0.0-0.2); EOSINOPHILS % (AUTO) 0.6 % (0.9-2.9); HEMATOCRIT 31.7 % (42.0-54.0); HEMOGLOBIN 10.3 g/dL (13.5-18.0); LYMPHOCYTES # (AUTO) 2.1 X10^3/uL (1.3-2.9); LYMPHOCYTES % (AUTO) 9.1 % (21.0-51.0); MEAN CORPUSCULAR HEMOGLOBIN 27.6 pg (27.0-34.0); MEAN CORPUSCULAR HGB CONC 32.5 g/dL (33.0-35.0); MEAN PLATELET VOLUME 7.6 fL (7.4-11.0); MONOCYTES # (AUTO) 1.5 x10^3/uL (0.3-0.8); MONOCYTES % (AUTO) 6.3 % (0.0-13.0); NEUTROPHILS # (AUTO) 19.7 x10^3/uL (2.2-4.8); NEUTROPHILS % (AUTO) 83.6 % (42.0-75.0); PLATELET COUNT 277 X10^3/uL (150.0-450.0); RED BLOOD COUNT 3.73 X10^6/uL (4.7-6.0); WHITE BLOOD COUNT 23.6 X10^3/uL (3.6-10.0)
[2024-07-03 05:32] LABS: ALANINE AMINOTRANSFERASE 8 Units/L (12-78); ALBUMIN 1.4 g/dL (3.4-5.0); ALKALINE PHOSPHATASE 51 Units/L (46-116); ASPARTATE AMINO TRANSFERASE 13 Units/L (15-37); BLOOD UREA NITROGEN 2 mg/dL (7-18); CARBON DIOXIDE 24.9 mmol/L (21-32); CHLORIDE 106 mmol/L (98-107); COR CA(FOR HYPOALB) 10.1 mg/dL (8.5-10.1); COR NA(FOR HYPERGLY) 138 mmol/L (136-145); CREATININE 0.84 mg/dL (0.70-1.30); GLUCOSE 201 mg/dL (65-99); MAGNESIUM 1.7 mg/dL (2.0-2.9); SODIUM 136 mmol/L (136-145); TOTAL PROTEIN 4.8 g/dL (6.4-8.2); eGFR NON BLACK RACES > 60 (>60)
[2024-07-03] MEDS ORDERED: CONSULT PHARMACY - POTASSIUM & MAGNESIUM XX SCH ×2 (06:00)
--- NOTE | 2024-07-03 06:06 | RAD ---
EXAMINATION:CHEST, 1 VIEWHISTORY:Post op bowel resection; HX: HTN, DM .COMPARISON STUDY:Chest x-ray 07/01/2024TECHNIQUE:Single frontal view of the chestFINDINGS:Lungs are expanded. Streaky bibasilar opacities. Mild cardiac silhouette enlargement. Right IJ line with distal catheter along the SVC/upper right atrium. Tip of the endotracheal tube projecting approximately 2.3 cm above the level of the wang. Bones are intact.IMPRESSION:Subtle streaky bibasilar opacities. Mild cardiac silhouette enlargement.THIS IS AN ELECTRONICALLY VERIFIED FINAL REPORT07/03/2024 6:03 AM - Electronically signed by Caryl Davis MD
[2024-07-03 06:28] LABS: PLATELET MORPHOLOGY COMMENT NORMAL (NORMAL)
[2024-07-03] MEDS: LASIX IVP ONE (10:00)
[2024-07-03] MEDS: MAG-OX TAB PO SCH (10:07)
[2024-07-03] MEDS: K-DUR TAB 20 MEQ PO SCH (10:08)
[2024-07-03] MEDS: ALBUMIN HUMAN 25%- 100 ML 100 ML IV SCH (10:09)
--- NOTE | 2024-07-03 10:23 | DR.PROGNOT ---
HOSPITAL PROGRESS NOTE Progress Note for Day of: Progress Note Date: 07/03/24 Chief Complaint Chief Complaint: PO day 2 . 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 Awake , alert, and stable . Minimal drainage and NG tube, good urine output, no shortness of breath. WBC 23.6 . Hgb 11.1. BS 326. [place] 1.5 afebrile .. Past Medical Family Social History Past Med/Fam/Surg Hx: No changes since H&P Allergies: Allergies No Known Drug Allergies Allergy (Unknown, Verified 06/26/24 21:23) Onset Date: 04/16/2012 Review Of Systems Changes in ROS: see HPI Vital Signs Vital Signs: Vital Signs Temperature 97.4 F Temperature 98.4 F Pulse Rate [Apical] 86 Pulse Rate [Apical] 89 Pulse Rate [Apical] 91 Pulse Rate [Apical] 93 Pulse Rate [Apical] 90 Pulse Rate [Apical] 93 Pulse Rate [Apical] 92 Respiratory Rate 19 Respiratory Rate 14 Respiratory Rate 13 Respiratory Rate 16 Respiratory Rate 20 Respiratory Rate 17 Respiratory Rate 22 Respiratory Rate 22 Respiratory Rate 21 Blood Pressure [Right Arm] 118/60 Blood Pressure [Right Arm] 119/70 Blood Pressure [Right Arm] 117/55 Blood Pressure [Right Arm] 139/70 Blood Pressure [Right Arm] 132/67 Blood Pressure [Right Arm] 131/67 Blood Pressure [Right Arm] 113/83 O2 Sat by Pulse Oximetry 97 O2 Sat by Pulse Oximetry 97 O2 Sat by Pulse Oximetry 96 O2 Sat by Pulse Oximetry 98 O2 Sat by Pulse Oximetry 98 O2 Sat by Pulse Oximetry 98 O2 Sat by Pulse Oximetry 98 Physical Exam Oriented: Normal Eyes: Normal Nose: Normal Throat: Normal Respiratory: Generalized and Diminished Cardiovascular: Normal GI:Auscultation: Normal GI:Palpation: Other (soft abdomen .. BS hypoactive ) GI: Tenderness: Periumbilical and Mild Skin: Normal Musculoskeletal: Normal Psychiatric: Normal Mood Description: Calm Affect: Normal Speech Pattern: Clear and Appropriate Laboratory and Diagnostics 07/03/24 04:28 07/03/24 04:28 Labs: 06/26/24 23:16 Blood Blood Culture - Final 06/26/24 21:38 Blood Blood Culture - Final 06/29/24 17:26 Blood Blood Culture - Preliminary 06/29/24 17:20 Blood Blood Culture - Preliminary Laboratory WBC 23.6 X10^3/uL (3.6-10.0) H 07/03/24 04:28 RBC 3.73 X10^6/uL (4.7-6.0) L 07/03/24 04:28 Hgb 10.3 g/dL (13.5-18.0) L 07/03/24 04:28 Hct 31.7 % (42.0-54.0) L 07/03/24 04:28 MCV 85.0 fL (80.0-100.0) 07/03/24 04:28 MCH 27.6 pg (27.0-34.0) 07/03/24 04: MCHC 32.5 g/dL (33.0-35.0) L 07/03/24 04: RDW 16.0 % (11.6-16.5) 07/03/24 04:28 Plt Count 277 X10^3/uL (150.0-450.0) 07/03/24 04:28 Plt Count Comment Adequate (ADEQUATE) 07/03/24 04:28 MPV 7.6 fL (7.4-11.0) 07/03/24 04:28 Neut % (Auto) 83.6 % (42.0-75.0) H 07/03/24 04:28 Lymph % (Auto) 9.1 % (21.0-51.0) L 07/03/24 04:28 [place] % (Auto) 6.3 % (0.0-13.0) 07/03/24 04:28 Eos % (Auto) 0.6 % (0.9-2.9) L 07/03/24 04:28 Baso % (Auto) 0.4 % (0.2-1.0) 07/03/24 04:28 Neut # (Auto) 19.7 x10^3/uL (2.2-4.8) H 07/03/24 04:28 Lymph # (Auto) 2.1 X10^3/uL (1.3-2.9) 07/03/24 04:28 [place] # (Auto) 1.5 x10^3/uL (0.3-0.8) H 07/03/24 04:28 Eos # (Auto) 0.1 x10^3/uL (0.0-0.2) 07/03/24 04:28 Baso # (Auto) 0.1 X10^3/uL (0.0-0.1) 07/03/24 04:28 Absolute Nucleated RBC 0.0 /100WBC 07/03/24 04:28 Total Counted 100 07/03/24 04:28 Neutrophils % (Manual) 80 % (39-76) H 07/03/24 04:28 Band Neutrophils % 1 % (0-10) 07/02/24 04:11 Lymphocytes % (Manual) 11 % (13-43) L 07/03/24 04:28 Monocytes % (Manual) 9 % (4-9) 07/03/24 04:28 Eosinophils % (Manual) 3 % (0-6) 06/28/24 05:49 Plt Morphology Comment Normal (NORMAL) 07/03/24 04:28 RBC Morphology Normal (NORMAL) 07/03/24 04:28 Hypochromasia Slight A 06/27/24 04:13 Anisocytosis Slight A 06/30/24 04:03 Sodium 136 mmol/L (136-145) 07/03/24 04:28 Corrected Sodium 138 mmol/L (136-145) 07/03/24 04:28 Potassium 3.0 mmol/L (3.5-5.1) L 07/03/24 04:28 Chloride 106 mmol/L (98-107) 07/03/24 04:28 Carbon Dioxide 24.9 mmol/L (21-32) 07/03/24 04:28 BUN 2 mg/dL (7-18) L 07/03/24 04:28 Creatinine 0.84 mg/dL (0.70-1.30) 07/03/24 04:28 Est GFR (MDRD) Af Amer > 60 (>60) 07/03/24 04:28 Est GFR (MDRD) Non-Af > 60 (>60) 07/03/24 04:28 Glucose 201 mg/dL (65-99) H 07/03/24 04:28 POC Glucose (mg/dL) 189 mg/dL (65-99) H 07/03/24 05:09 Lactic Acid 1.9 mmol/L (0.4-2.0) 06/27/24 01:15 Calcium 8.0 mg/dL (8.5-10.1) L 07/03/24 04:28 Corrected Calcium 10.1 mg/dL (8.5-10.1) 07/03/24 04:28 Magnesium 1.7 mg/dL (2.0-2.9) L 07/03/24 04:28 Total Bilirubin 0.90 mg/dL (0.2-1.0) 07/03/24 04:28 AST 13 Units/L (15-37) L 07/03/24 04:28 ALT 8 Units/L (12-78) L 07/03/24 04:28 Alkaline Phosphatase 51 Units/L (46-116) 07/03/24 04:28 Total Protein 4.8 g/dL (6.4-8.2) L 07/03/24 04:28 Albumin 1.4 g/dL (3.4-5.0) L 07/03/24 04:28 Globulin 3.4 g/dL (2.5-4.5) 07/03/24 04:28 Albumin/Globulin Ratio 0.4 Ratio (1.1-2.1) L 07/03/24 04:28 Amylase 61 Units/L (25-115) 06/26/24 21:38 Lipase 20 Units/L (16-77) 06/26/24 21:38 Specimen Type Clean catch urine 06/27/24 07:48 Urine Color Yellow (YELLOW) 06/27/24 07:48 Urine Appearance Clear (CLEAR) 06/27/24 07:48 Urine pH 5.0 (5.0 - 8.0) 06/27/24 07:48 Ur Specific [place] 1.020 (1.000-1.030) 06/27/24 07:48 Urine Protein 2+ (NEGATIVE) 06/27/24 07:48 Urine Glucose (UA) 2+ (NEGATIVE) 06/27/24 07:48 Urine Ketones Negative (NEGATIVE) 06/27/24 07:48 Urine Blood Negative (NEGATIVE) 06/27/24 07:48 Urine Nitrite Negative (NEGATIVE) 06/27/24 07:48 Urine Bilirubin Negative (NEGATIVE) 06/27/24 07:48 Urine Urobilinogen Normal (NORMAL) 06/27/24 07:48 Ur Leukocyte Esterase Negative (NEGATIVE) 06/27/24 07:48 Urine RBC None seen /HPF (0-3) 06/27/24 07:48 Urine WBC 0-2 /HPF (0-5) 06/27/24 07:48 Ur Squamous Epith Cells Rare /HPF (NEGATIVE) 06/27/24 07:48 Calcium Oxalate Crystal Rare /HPF (NEGATIVE) 06/27/24 07:48 Other Crystals Few /HPF (NEGATIVE) 06/27/24 07:48 Urine Bacteria Negative /HPF (NEGATIVE) 06/27/24 07:48 Ur Culture Indicated? 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 OOB , incentive spirometer , DVT prophylaxis , OOB . DC NG tube and start on water. Same IV antibiotics and anticoagulants, albumin and Lasix. 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
--- NOTE | 2024-07-03 10:43 | PCM.PROG ---
Progress Note Progress Note for Day of Date of Exam: 07/03/24 Subjective Subjective: Patient is in bed this morning. He reports doing well and is improving. No acute events overnight. 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 Labs/imaging: Wbc 23, hemoglobin 10.3, platelets 277, sodium 136, potassium 3.0, creatinine 0.84, glucose 201. Follow surgery recommendations. NG tube removed, start on clear liquid diet, OOB , incentive spirometer, DVT prophylaxis with Lovenox. Will need to restart aspirin and Plavix when appropriate. Continue hydration, replace electrolytes as needed. Diet as per surgery. Continue home medications. Monitor AM labs/imaging. Past Medical Family Social History Past Med/Fam/Surg Hx: No changes since H&P Allergies: Allergies No Known Drug Allergies Allergy (Unknown, Verified 06/26/24 21:23) Onset Date: 04/16/2012 Review of Systems ROS changes noted: see HPI Vital Signs and I&O's Vital Signs: Vital Signs Temperature 97.4 F Temperature 98.4 F Pulse Rate [Apical] 86 Pulse Rate [Apical] 89 Pulse Rate [Apical] 91 Pulse Rate [Apical] 93 Pulse Rate [Apical] 90 Pulse Rate [Apical] 93 Pulse Rate [Apical] 92 Respiratory Rate 19 Respiratory Rate 14 Respiratory Rate 13 Respiratory Rate 16 Respiratory Rate 20 Respiratory Rate 17 Respiratory Rate 22 Respiratory Rate 22 Respiratory Rate 21 Blood Pressure [Right Arm] 118/60 Blood Pressure [Right Arm] 119/70 Blood Pressure [Right Arm] 117/55 Blood Pressure [Right Arm] 139/70 Blood Pressure [Right Arm] 132/67 Blood Pressure [Right Arm] 131/67 Blood Pressure [Right Arm] 113/83 O2 Sat by Pulse Oximetry 97 O2 Sat by Pulse Oximetry 97 O2 Sat by Pulse Oximetry 96 O2 Sat by Pulse Oximetry 98 O2 Sat by Pulse Oximetry 98 O2 Sat by Pulse Oximetry 98 O2 Sat by Pulse Oximetry 98 Intake and Output: Intake & Output 06/30/24 07/01/24 07/02/24 07/03/24 23:59 23:59 23:59 23:59 Intake Total 3120 / 3979 08692 / 25544 4065 / 4065 738 / 738 Output Total 3147 / 3202 1577 / 1577 340 / 340 Balance 3979 / 3979 7385 / 7330 2488 / 2488 398 / 398 Physical Exam Oriented: Normal Eyes: Normal Nose: Normal Throat: Normal Respiratory: Normal Cardiovascular: Normal Auscultation: Bowel Sounds: Normal Palpation: Normal Tenderness: Mild Skin: Normal Musculoskeletal: Normal Psychiatric: Normal Mood Description: Calm Affect: Normal Speech Pattern: Clear and Appropriate Laboratory and Diagnostics 07/03/24 04:28 07/03/24 04:28 Labs: 06/26/24 23:16 Blood Blood Culture - Final 06/26/24 21:38 Blood Blood Culture - Final 06/29/24 17:26 Blood Blood Culture - Preliminary 06/29/24 17:20 Blood Blood Culture - Preliminary Laboratory WBC 23.6 X10^3/uL (3.6-10.0) H 07/03/24 04:28 RBC 3.73 X10^6/uL (4.7-6.0) L 07/03/24 04:28 Hgb 10.3 g/dL (13.5-18.0) L 07/03/24 04:28 Hct 31.7 % (42.0-54.0) L 07/03/24 04:28 MCV 85.0 fL (80.0-100.0) 07/03/24 04:28 MCH 27.6 pg (27.0-34.0) 07/03/24 04:28 MCHC 32.5 g/dL (33.0-35.0) L 07/03/24 04:28 RDW 16.0 % (11.6-16.5) 07/03/24 04:28 Plt Count 277 X10^3/uL (150.0-450.0) 07/03/24 04:28 Plt Count Comment Adequate (ADEQUATE) 07/03/24 04:28 MPV 7.6 fL (7.4-11.0) 07/03/24 04:28 Neut % (Auto) 83.6 % (42.0-75.0) H 07/03/24 04:28 Lymph % (Auto) 9.1 % (21.0-51.0) L 07/03/24 04:28 [place] % (Auto) 6.3 % (0.0-13.0) 07/03/24 04:28 Eos % (Auto) 0.6 % (0.9-2.9) L 07/03/24 04:28 Baso % (Auto) 0.4 % (0.2-1.0) 07/03/24 04:28 Neut # (Auto) 19.7 x10^3/uL (2.2-4.8) H 07/03/24 04:28 Lymph # (Auto) 2.1 X10^3/uL (1.3-2.9) 07/03/24 04:28 [place] # (Auto) 1.5 x10^3/uL (0.3-0.8) H 07/03/24 04:28 Eos # (Auto) 0.1 x10^3/uL (0.0-0.2) 07/03/24 04:28 Baso # (Auto) 0.1 X10^3/uL (0.0-0.1) 07/03/24 04:28 Absolute Nucleated RBC 0.0 /100WBC 07/03/24 04:28 Total Counted 100 07/03/24 04:28 Neutrophils % (Manual) 80 % (39-76) H 07/03/24 04:28 Band Neutrophils % 1 % (0-10) 07/02/24 04:11 Lymphocytes % (Manual) 11 % (13-43) L 07/03/24 04:28 Monocytes % (Manual) 9 % (4-9) 07/03/24 04:28 Eosinophils % (Manual) 3 % (0-6) 06/28/24 05:49 Plt Morphology Comment Normal (NORMAL) 07/03/24 04:28 RBC Morphology Normal (NORMAL) 07/03/24 04:28 Hypochromasia Slight A 06/27/24 04:13 Anisocytosis Slight A 06/30/24 04:03 Sodium 136 mmol/L (136-145) 07/03/24 04:28 Corrected Sodium 138 mmol/L (136-145) 07/03/24 04:28 Potassium 3.0 mmol/L (3.5-5.1) L 07/03/24 04:28 Chloride 106 mmol/L (98-107) 07/03/24 04:28 Carbon Dioxide 24.9 mmol/L (21-32) 07/03/24 04:28 BUN 2 mg/dL (7-18) L 07/03/24 04:28 Creatinine 0.84 mg/dL (0.70-1.30) 07/03/24 04:28 Est GFR (MDRD) Af Amer > 60 (>60) 07/03/24 04:28 Est GFR (MDRD) Non-Af > 60 (>60) 07/03/24 04:28 Glucose 201 mg/dL (65-99) H 07/03/24 04:28 POC Glucose (mg/dL) 189 mg/dL (65-99) H 07/03/24 05:09 Lactic Acid 1.9 mmol/L (0.4-2.0) 06/27/24 01:15 Calcium 8.0 mg/dL (8.5-10.1) L 07/03/24 04:28 Corrected Calcium 10.1 mg/dL (8.5-10.1) 07/03/24 04:28 Magnesium 1.7 mg/dL (2.0-2.9) L 07/03/24 04:28 Total Bilirubin 0.90 mg/dL (0.2-1.0) 07/03/24 04:28 AST 13 Units/L (15-37) L 07/03/24 04:28 ALT 8 Units/L (12-78) L 07/03/24 04:28 Alkaline Phosphatase 51 Units/L (46-116) 07/03/24 04:28 Total Protein 4.8 g/dL (6.4-8.2) L 07/03/24 04:28 Albumin 1.4 g/dL (3.4-5.0) L 07/03/24 04:28 Globulin 3.4 g/dL (2.5-4.5) 07/03/24 04:28 Albumin/Globulin Ratio 0.4 Ratio (1.1-2.1) L 07/03/24 04:28 Amylase 61 Units/L (25-115) 06/26/24 21:38 Lipase 20 Units/L (16-77) 06/26/24 21:38 Specimen Type Clean catch urine 06/27/24 07:48 Urine Color Yellow (YELLOW) 06/27/24 07:48 Urine Appearance Clear (CLEAR) 06/27/24 07:48 Urine pH 5.0 (5.0 - 8.0) 06/27/24 07:48 Ur Specific [place] 1.020 (1.000-1.030) 06/27/24 07:48 Urine Protein 2+ (NEGATIVE) 06/27/24 07:48 Urine Glucose (UA) 2+ (NEGATIVE) 06/27/24 07:48 Urine Ketones Negative (NEGATIVE) 06/27/24 07:48 Urine Blood Negative (NEGATIVE) 06/27/24 07:48 Urine Nitrite Negative (NEGATIVE) 06/27/24 07:48 Urine Bilirubin Negative (NEGATIVE) 06/27/24 07:48 Urine Urobilinogen Normal (NORMAL) 06/27/24 07:48 Ur Leukocyte Esterase Negative (NEGATIVE) 06/27/24 07:48 Urine RBC None seen /HPF (0-3) 06/27/24 07:48 Urine WBC 0-2 /HPF (0-5) 06/27/24 07:48 Ur Squamous Epith Cells Rare /HPF (NEGATIVE) 06/27/24 07:48 Calcium Oxalate Crystal Rare /HPF (NEGATIVE) 06/27/24 07:48 Other Crystals Few /HPF (NEGATIVE) 06/27/24 07:48 Urine Bacteria Negative /HPF (NEGATIVE) 06/27/24 07:48 Ur Culture Indicated? 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
[2024-07-04 04:57] LABS: HEMOGLOBIN 10.1 g/dL (13.5-18.0); RED CELL DISTRIBUTION WIDTH 15.7 % (11.6-16.5)
[2024-07-04 05:02] LABS: BASOPHILS # (AUTO) 0.1 X10^3/uL (0.0-0.1); BASOPHILS % (AUTO) 0.4 % (0.2-1.0); EOSINOPHILS # (AUTO) 0.3 x10^3/uL (0.0-0.2); EOSINOPHILS % (AUTO) 1.4 % (0.9-2.9); HEMATOCRIT 31.1 % (42.0-54.0); LYMPHOCYTES # (AUTO) 2.8 X10^3/uL (1.3-2.9); MEAN CORPUSCULAR HEMOGLOBIN 27.5 pg (27.0-34.0); MEAN CORPUSCULAR HGB CONC 32.5 g/dL (33.0-35.0); MEAN CORPUSCULAR VOLUME 84.6 fL (80.0-100.0); MEAN PLATELET VOLUME 7.2 fL (7.4-11.0); MONOCYTES # (AUTO) 1.1 x10^3/uL (0.3-0.8); MONOCYTES % (AUTO) 5.2 % (0.0-13.0); NEUTROPHILS # (AUTO) 16.9 x10^3/uL (2.2-4.8); PLATELET COUNT 304 X10^3/uL (150.0-450.0); RED BLOOD COUNT 3.68 X10^6/uL (4.7-6.0); WHITE BLOOD COUNT 21.2 X10^3/uL (3.6-10.0)
[2024-07-04 05:22] LABS: ALANINE AMINOTRANSFERASE 9 Units/L (12-78); ALBUMIN 1.9 g/dL (3.4-5.0); ALKALINE PHOSPHATASE 47 Units/L (46-116); ASPARTATE AMINO TRANSFERASE 12 Units/L (15-37); BLOOD UREA NITROGEN 2 mg/dL (7-18); CARBON DIOXIDE 25.7 mmol/L (21-32); CHLORIDE 104 mmol/L (98-107); COR CA(FOR HYPOALB) 9.7 mg/dL (8.5-10.1); COR NA(FOR HYPERGLY) 139 mmol/L (136-145); CREATININE 0.86 mg/dL (0.70-1.30); GLUCOSE 197 mg/dL (65-99); MAGNESIUM 1.8 mg/dL (2.0-2.9); POTASSIUM 3.4 mmol/L (3.5-5.1); SODIUM 137 mmol/L (136-145); TOTAL PROTEIN 5.3 g/dL (6.4-8.2); eGFR NON BLACK RACES > 60 (>60)
--- NOTE | 2024-07-04 05:26 | RAD ---
PROCEDURE: Chest X-ray 1 View.HISTORY: post surgry, ng tube, central line; .TECHNIQUE: AP view.COMPARISON: July 03 this year.TECHNICAL QUALITY: Satisfactory.FINDINGS:Right internal jugular central venous line tip just into the right atrium 2.5 cm beyond the superior cavoatrial junction. There is no evidence of an NG tube on this study.Normal-sized heart.Mediastinum and hilar regions show no masses or lymphadenopathy.Normal central vascularity.No pulmonary consolidation, masses, pleural fluid, or pneumothorax.No acute bony abnormality.IMPRESSION:1. There is no evidence of an NG tube on this study.2. Good right internal jugular central venous line placement.3. No active cardiopulmonary disease.THIS IS AN ELECTRONICALLY VERIFIED FINAL REPORT07/04/2024 5:22 AM - Electronically signed by Navjot Andre MD
[2024-07-04 05:41] LABS: PLATELET MORPHOLOGY COMMENT NORMAL (NORMAL)
--- NOTE | 2024-07-04 06:06 | RAD ---
EXAM:KUBHISTORY:Abdominal painCOMPARISON:NoneFINDINGS:Abdominal gas pattern is nonspecific and nonobstructive. No abnormal masses or abnormal calcifications are identified. Regional skeleton is intact.IMPRESSION:Unremarkable KUBTHIS IS AN ELECTRONICALLY VERIFIED FINAL REPORT07/04/2024 6:02 AM - Electronically signed by Tobias Maxwell MD
[2024-07-04] MEDS: CONSULT PHARMACY - POTASSIUM & MAGNESIUM XX SCH (07:38)
[2024-07-04] MEDS: D5 1/2 NS 1,000 ML 1,000 ML with MAGNESIUM SULFATE 50% INJ VIAL 1 G IV SCH (07:49)
[2024-07-04] MEDS: LASIX IVP ONE (08:28)
[2024-07-04] MEDS: MAG-OX TAB PO SCH (08:30)
[2024-07-04] MEDS: K-DUR TAB 20 MEQ PO SCH (08:31)
--- NOTE | 2024-07-04 09:07 | NOTE.SOAP ---
Soap Note Note for Day of Date of Exam: 07/04/24 Subjective Data Subjective Data: POD 3- eating clear liquids- no BM/gas yet- no CV sx Objective Data Objective Data: bp 110 60 p 83- tele: sinus- no afib seen clear lungs rrr edema hands/calf labs: k 3.4 alb up to 1.9, hct 31 Assessment Assessment: s/p abdominal surgery/ h/o afib/ stroke Plan Plan: will add back asa/plavix for stroke prevention
[2024-07-04] MEDS: PLAVIX PO SCH (09:30)
[2024-07-04] MEDS: ASPIRIN 81 MG CHEWTAB PO SCH (09:30)
--- NOTE | 2024-07-04 10:56 | PCM.PROG ---
Progress Note Progress Note for Day of Date of Exam: 07/04/24 Subjective Subjective: POD#3 s/p laparotomy resection of large perforated sigmoid tumor and partial small bowel resection, partial omentectomy and repair of umbilical hernia. Patient seen at bedside, no acute events overnight. He has been doing well. His appetite is slowly improving. He has been tolerating liquids. He still has [place] drain and siegel in place. He states pain has been well-controlled with medicat ions. Denies any N/V/D. He has been using IS. Labs/imaging reviewed: -WBC 21.2 Hgb 10.1 K:3.4 Ma.8 -CXR: central line in place Plan: continue ICU monitoring. Follow surgery recommendations. Monitor [place] output. Diet as per surgery. Replace electrolytes as per protocol. Continue pain control, will add PO [place]. Continue Zosyn. Continue other home medications. Follow cardio recommendations regarding restarting asa/plavix. Monitor AM labs/imaging. Past Medical Family Social History Past Med/Fam/Surg Hx: No changes since H&P Allergies: Allergies No Known Drug Allergies Allergy (Unknown, Verified 06/26/24 21:23) Onset Date: 04/16/2012 Vital Signs and I&O's Vital Signs: Vital Signs Temperature 98.5 F Pulse Rate [Apical] 83 Pulse Rate [Apical] 84 Pulse Rate [Apical] 82 Pulse Rate [Apical] 86 Pulse Rate 81 Pulse Rate 82 Pulse Rate 88 Pulse Rate 80 Pulse Rate 82 Pulse Rate 82 Pulse Rate 83 Pulse Rate 80 Pulse Rate 80 Pulse Rate 80 Pulse Rate 80 Pulse Rate 81 Pulse Rate 83 Pulse Rate 81 Pulse Rate 79 Respiratory Rate 15 Respiratory Rate 15 Respiratory Rate 16 Respiratory Rate 19 Respiratory Rate 17 Respiratory Rate 16 Respiratory Rate 16 Respiratory Rate 19 Respiratory Rate 17 Respiratory Rate 15 Respiratory Rate 20 Respiratory Rate 19 Respiratory Rate 16 Respiratory Rate 19 Respiratory Rate 17 Respiratory Rate 15 Respiratory Rate 19 Respiratory Rate 20 Respiratory Rate 16 Respiratory Rate 14 Blood Pressure [Right Arm] 103/60 Blood Pressure [Right Arm] 117/56 Blood Pressure [Right Arm] 118/64 Blood Pressure [Right Arm] 119/71 Blood Pressure 137/62 Blood Pressure 127/62 Blood Pressure 109/62 Blood Pressure 121/59 O2 Sat by Pulse Oximetry 95 O2 Sat by Pulse Oximetry 96 O2 Sat by Pulse Oximetry 96 O2 Sat by Pulse Oximetry 95 O2 Sat by Pulse Oximetry 95 O2 Sat by Pulse Oximetry 92 O2 Sat by Pulse Oximetry 92 O2 Sat by Pulse Oximetry 95 O2 Sat by Pulse Oximetry 95 O2 Sat by Pulse Oximetry 94 O2 Sat by Pulse Oximetry 94 O2 Sat by Pulse Oximetry 94 O2 Sat by Pulse Oximetry 95 O2 Sat by Pulse Oximetry 94 O2 Sat by Pulse Oximetry 94 O2 Sat by Pulse Oximetry 95 O2 Sat by Pulse Oximetry 95 O2 Sat by Pulse Oximetry 95 O2 Sat by Pulse Oximetry 94 Intake and Output: Intake & Output 07/01/24 07/02/24 07/03/24 07/04/24 23:59 23:59 23:59 23:59 Intake Total 28669 / 34641 4065 / 4065 3643 / 3643 941 / 941 Output Total 3147 / 3202 1577 / 1577 4080 / 4080 490 / 490 Balance 7385 / 7330 2488 / 2488 -437 / -437 451 / 451 Physical Exam Oriented: Normal Eyes: Normal Nose: Normal Throat: Normal Respiratory: Normal Cardiovascular: Normal Auscultation: Bowel Sounds: Normal Tenderness: Mild and Other (bandage noted, [place] drain present ) Skin: Normal Musculoskeletal: Normal Psychiatric: Normal Mood Description: Calm Affect: Normal Speech Pattern: Clear and Appropriate Laboratory and Diagnostics 07/04/24 04:46 07/04/24 04:46 Labs: 06/26/24 23:16 Blood Blood Culture - Final 06/26/24 21:38 Blood Blood Culture - Final 06/29/24 17:26 Blood Blood Culture - Preliminary 06/29/24 17:20 Blood Blood Culture - Preliminary Laboratory WBC 21.2 X10^3/uL (3.6-10.0) H 07/04/24 04:46 RBC 3.68 X10^6/uL (4.7-6.0) L 07/04/24 04:46 Hgb 10.1 g/dL (13.5-18.0) L 07/04/24 04:46 Hct 31.1 % (42.0-54.0) L 07/04/24 04:46 MCV 84.6 fL (80.0-100.0) 07/04/24 04:46 MCH 27.5 pg (27.0-34.0) 07/04/24 04:46 MCHC 32.5 g/dL (33.0-35.0) L 07/04/24 04:46 RDW 15.7 % (11.6-16.5) 07/04/24 04:46 Plt Count 304 X10^3/uL (150.0-450.0) 07/04/24 04:46 Plt Count Comment Adequate (ADEQUATE) 07/04/24 04:46 MPV 7.2 fL (7.4-11.0) L 07/04/24 04:46 Neut % (Auto) 80.0 % (42.0-75.0) H 07/04/24 04:46 Lymph % (Auto) 13.0 % (21.0-51.0) L 07/04/24 04:46 [place] % (Auto) 5.2 % (0.0-13.0) 07/04/24 04:46 Eos % (Auto) 1.4 % (0.9-2.9) 07/04/24 04:46 Baso % (Auto) 0.4 % (0.2-1.0) 07/04/24 04:46 Neut # (Auto) 16.9 x10^3/uL (2.2-4.8) H 07/04/24 04:46 Lymph # (Auto) 2.8 X10^3/uL (1.3-2.9) 07/04/24 04:46 [place] # (Auto) 1.1 x10^3/uL (0.3-0.8) H 07/04/24 04:46 Eos # (Auto) 0.3 x10^3/uL (0.0-0.2) H 07/04/24 04:46 Baso # (Auto) 0.1 X10^3/uL (0.0-0.1) 07/04/24 04:46 Absolute Nucleated RBC 0.0 /100WBC 07/04/24 04:46 Total Counted 100 07/04/24 04:46 Neutrophils % (Manual) 85 % (39-76) H 07/04/24 04:46 Band Neutrophils % 1 % (0-10) 07/02/24 04:11 Lymphocytes % (Manual) 8 % (13-43) L 07/04/24 04:46 Monocytes % (Manual) 5 % (4-9) 07/04/24 04:46 Eosinophils % (Manual) 2 % (0-6) 07/04/24 04:46 Plt Morphology Comment Normal (NORMAL) 07/04/24 04:46 RBC Morphology Normal (NORMAL) 07/04/24 04:46 Hypochromasia Slight A 06/27/24 04:13 Anisocytosis Slight A 06/30/24 04:03 Sodium 137 mmol/L (136-145) 07/04/24 04:46 Corrected Sodium 139 mmol/L (136-145) 07/04/24 04:46 Potassium 3.4 mmol/L (3.5-5.1) L 07/04/24 04:46 Chloride 104 mmol/L (98-107) 07/04/24 04:46 Carbon Dioxide 25.7 mmol/L (21-32) 07/04/24 04:46 BUN 2 mg/dL (7-18) L 07/04/24 04:46 Creatinine 0.86 mg/dL (0.70-1.30) 07/04/24 04:46 Est GFR (MDRD) Af Amer > 60 (>60) 07/04/24 04:46 Est GFR (MDRD) Non-Af > 60 (>60) 07/04/24 04:46 Glucose 197 mg/dL (65-99) H 07/04/24 04:46 POC Glucose (mg/dL) 186 mg/dL (65-99) H 07/04/24 10:41 Lactic Acid 1.9 mmol/L (0.4-2.0) 06/27/24 01:15 Calcium 8.0 mg/dL (8.5-10.1) L 07/04/24 04:46 Corrected Calcium 9.7 mg/dL (8.5-10.1) 07/04/24 04:46 Magnesium 1.8 mg/dL (2.0-2.9) L 07/04/24 04:46 Total Bilirubin 0.80 mg/dL (0.2-1.0) 07/04/24 04:46 AST 12 Units/L (15-37) L 07/04/24 04:46 ALT 9 Units/L (12-78) L 07/04/24 04:46 Alkaline Phosphatase 47 Units/L (46-116) 07/04/24 04:46 Total Protein 5.3 g/dL (6.4-8.2) L 07/04/24 04:46 Albumin 1.9 g/dL (3.4-5.0) L 07/04/24 04:46 Globulin 3.4 g/dL (2.5-4.5) 07/04/24 04:46 Albumin/Globulin Ratio 0.6 Ratio (1.1-2.1) L 07/04/24 04:46 Amylase 61 Units/L (25-115) 06/26/24 21:38 Lipase 20 Units/L (16-77) 06/26/24 21:38 Specimen Type Clean catch urine 06/27/24 07:48 Urine Color Yellow (YELLOW) 06/27/24 07:48 Urine Appearance Clear (CLEAR) 06/27/24 07:48 Urine pH 5.0 (5.0 - 8.0) 06/27/24 07:48 Ur Specific [place] 1.020 (1.000-1.030) 06/27/24 07:48 Urine Protein 2+ (NEGATIVE) 06/27/24 07:48 Urine Glucose (UA) 2+ (NEGATIVE) 06/27/24 07:48 Urine Ketones Negative (NEGATIVE) 06/27/24 07:48 Urine Blood Negative (NEGATIVE) 06/27/24 07:48 Urine Nitrite Negative (NEGATIVE) 06/27/24 07:48 Urine Bilirubin Negative (NEGATIVE) 06/27/24 07:48 Urine Urobilinogen Normal (NORMAL) 06/27/24 07:48 Ur Leukocyte Esterase Negative (NEGATIVE) 06/27/24 07:48 Urine RBC None seen /HPF (0-3) 06/27/24 07:48 Urine WBC 0-2 /HPF (0-5) 06/27/24 07:48 Ur Squamous Epith Cells Rare /HPF (NEGATIVE) 06/27/24 07:48 Calcium Oxalate Crystal Rare /HPF (NEGATIVE) 06/27/24 07:48 Other Crystals Few /HPF (NEGATIVE) 06/27/24 07:48 Urine Bacteria Negative /HPF (NEGATIVE) 06/27/24 07:48 Ur Culture Indicated? No/not indicated 06/27/24 07:48 SARS-CoV-2 (PCR) Negative (NEGATIVE) 06/30/24 10:12 Influenza Type A (PCR) Negative (NEGATIVE) 06/30/24 10:12 Influenza Type B (PCR) Negative (NEGATIVE) 06/30/24 10:12 RSV (PCR) Negative (NEGATIVE) 06/30/24 10:12 Blood Type O POSITIVE 06/29/24 17:20 Antibody Screen Negative 06/29/24 17:20 Crossmatch See Detail 06/29/24 17:20 Plan (1) Post-op pain: Status: Acute (2) Cancer of sigmoid colon: Status: Acute (3) Anemia: Status: Acute Qualifiers: Anemia type: unspecified type Qualified Code(s): D64.9 - Anemia, unspecified (4) History of CVA (cerebrovascular accident): Status: Acute (5) TED (acute kidney injury): Status: Acute (6) Hypomagnesemia: Status: Acute (7) Hypokalemia: Status: Acute
[2024-07-04] MEDS: NORCO 10/325 TAB PO PRN (11:09)
--- NOTE | 2024-07-04 11:18 | DR.PROGNOT ---
HOSPITAL PROGRESS NOTE Progress Note for Day of: Progress Note Date: 07/04/24 Chief Complaint Chief Complaint: PO day 3 . 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 Awake , alert, and stable . tolerating liquid diet .no BM yet .. , good urine output, no shortness of breath. WBC 21.2 . Hgb 10.1. BS 186 [place] 1.5 . K 3.2 Past Medical Family Social History Past Med/Fam/Surg Hx: No changes since H&P Allergies: Allergies No Known Drug Allergies Allergy (Unknown, Verified 06/26/24 21:23) Onset Date: 04/16/2012 Review Of Systems Changes in ROS: see HPI Vital Signs Vital Signs: Vital Signs Temperature 98.5 F Pulse Rate [Apical] 83 Pulse Rate [Apical] 84 Pulse Rate [Apical] 82 Pulse Rate 81 Pulse Rate 82 Pulse Rate 88 Pulse Rate 80 Pulse Rate 82 Pulse Rate 82 Pulse Rate 83 Pulse Rate 80 Pulse Rate 80 Pulse Rate 80 Pulse Rate 80 Pulse Rate 81 Pulse Rate 83 Pulse Rate 81 Pulse Rate 79 Respiratory Rate 15 Respiratory Rate 15 Respiratory Rate 15 Respiratory Rate 16 Respiratory Rate 19 Respiratory Rate 17 Respiratory Rate 16 Respiratory Rate 16 Respiratory Rate 19 Respiratory Rate 17 Respiratory Rate 15 Respiratory Rate 20 Respiratory Rate 19 Respiratory Rate 16 Respiratory Rate 19 Respiratory Rate 17 Respiratory Rate 15 Respiratory Rate 19 Respiratory Rate 20 Respiratory Rate 16 Blood Pressure [Right Arm] 103/60 Blood Pressure [Right Arm] 117/56 Blood Pressure [Right Arm] 118/64 Blood Pressure 137/62 Blood Pressure 127/62 Blood Pressure 109/62 Blood Pressure 121/59 O2 Sat by Pulse Oximetry 95 O2 Sat by Pulse Oximetry 96 O2 Sat by Pulse Oximetry 96 O2 Sat by Pulse Oximetry 95 O2 Sat by Pulse Oximetry 95 O2 Sat by Pulse Oximetry 92 O2 Sat by Pulse Oximetry 92 O2 Sat by Pulse Oximetry 95 O2 Sat by Pulse Oximetry 95 O2 Sat by Pulse Oximetry 94 O2 Sat by Pulse Oximetry 94 O2 Sat by Pulse Oximetry 94 O2 Sat by Pulse Oximetry 95 O2 Sat by Pulse Oximetry 94 O2 Sat by Pulse Oximetry 94 O2 Sat by Pulse Oximetry 95 O2 Sat by Pulse Oximetry 95 O2 Sat by Pulse Oximetry 95 Physical Exam Oriented: Normal Eyes: Normal Nose: Normal Throat: Normal Respiratory: Normal Cardiovascular: Normal GI:Auscultation: Normal GI:Palpation: Normal GI: Tenderness: Mild and Other (bandage noted, MILTON drain present ) Skin: Normal Musculoskeletal: Normal Psychiatric: Normal Mood Description: Calm Affect: Normal Speech Pattern: Clear and Appropriate Laboratory and Diagnostics 07/04/24 04:46 07/04/24 04:46 Labs: 06/26/24 23:16 Blood Blood Culture - Final 06/26/24 21:38 Blood Blood Culture - Final 06/29/24 17:26 Blood Blood Culture - Preliminary 06/29/24 17:20 Blood Blood Culture - Preliminary Laboratory WBC 21.2 X10^3/uL (3.6-10.0) H 07/04/24 04:46 RBC 3.68 X10^6/uL (4.7-6.0) L 07/04/24 04:46 Hgb 10.1 g/dL (13.5-18.0) L 07/04/24 04:46 Hct 31.1 % (42.0-54.0) L 07/04/24 04:46 MCV 84.6 fL (80.0-100.0) 07/04/24 04:46 MCH 27.5 pg (27.0-34.0) 07/04/24 04:46 MCHC 32.5 g/dL (33.0-35.0) L 07/04/24 04:46 RDW 15.7 % (11.6-16.5) 07/04/24 04:46 Plt Count 304 X10^3/uL (150.0-450.0) 07/04/24 04:46 Plt Count Comment Adequate (ADEQUATE) 07/04/24 04:46 MPV 7.2 fL (7.4-11.0) L 07/04/24 04:46 Neut % (Auto) 80.0 % (42.0-75.0) H 07/04/24 04:46 Lymph % (Auto) 13.0 % (21.0-51.0) L 07/04/24 04:46 [place] % (Auto) 5.2 % (0.0-13.0) 07/04/24 04:46 Eos % (Auto) 1.4 % (0.9-2.9) 07/04/24 04:46 Baso % (Auto) 0.4 % (0.2-1.0) 07/04/24 04:46 Neut # (Auto) 16.9 x10^3/uL (2.2-4.8) H 07/04/24 04:46 Lymph # (Auto) 2.8 X10^3/uL (1.3-2.9) 07/04/24 04:46 [place] # (Auto) 1.1 x10^3/uL (0.3-0.8) H 07/04/24 04:46 Eos # (Auto) 0.3 x10^3/uL (0.0-0.2) H 07/04/24 04:46 Baso # (Auto) 0.1 X10^3/uL (0.0-0.1) 07/04/24 04:46 Absolute Nucleated RBC 0.0 /100WBC 07/04/24 04:46 Total Counted 100 07/04/24 04:46 Neutrophils % (Manual) 85 % (39-76) H 07/04/24 04:46 Band Neutrophils % 1 % (0-10) 07/02/24 04:11 Lymphocytes % (Manual) 8 % (13-43) L 07/04/24 04:46 Monocytes % (Manual) 5 % (4-9) 07/04/24 04:46 Eosinophils % (Manual) 2 % (0-6) 07/04/24 04:46 Plt Morphology Comment Normal (NORMAL) 07/04/24 04:46 RBC Morphology Normal (NORMAL) 07/04/24 04:46 Hypochromasia Slight A 06/27/24 04:13 Anisocytosis Slight A 06/30/24 04:03 Sodium 137 mmol/L (136-145) 07/04/24 04:46 Corrected Sodium 139 mmol/L (136-145) 07/04/24 04:46 Potassium 3.4 mmol/L (3.5-5.1) L 07/04/24 04:46 Chloride 104 mmol/L (98-107) 07/04/24 04:46 Carbon Dioxide 25.7 mmol/L (21-32) 07/04/24 04:46 BUN 2 mg/dL (7-18) L 07/04/24 04:46 Creatinine 0.86 mg/dL (0.70-1.30) 07/04/24 04:46 Est GFR (MDRD) Af Amer > 60 (>60) 07/04/24 04:46 Est GFR (MDRD) Non-Af > 60 (>60) 07/04/24 04:46 Glucose 197 mg/dL (65-99) H 07/04/24 04:46 POC Glucose (mg/dL) 186 mg/dL (65-99) H 07/04/24 10:41 Lactic Acid 1.9 mmol/L (0.4-2.0) 06/27/24 01:15 Calcium 8.0 mg/dL (8.5-10.1) L 07/04/24 04:46 Corrected Calcium 9.7 mg/dL (8.5-10.1) 07/04/24 04:46 Magnesium 1.8 mg/dL (2.0-2.9) L 07/04/24 04:46 Total Bilirubin 0.80 mg/dL (0.2-1.0) 07/04/24 04:46 AST 12 Units/L (15-37) L 07/04/24 04:46 ALT 9 Units/L (12-78) L 07/04/24 04:46 Alkaline Phosphatase 47 Units/L (46-116) 07/04/24 04:46 Total Protein 5.3 g/dL (6.4-8.2) L 07/04/24 04:46 Albumin 1.9 g/dL (3.4-5.0) L 07/04/24 04:46 Globulin 3.4 g/dL (2.5-4.5) 07/04/24 04:46 Albumin/Globulin Ratio 0.6 Ratio (1.1-2.1) L 07/04/24 04:46 Amylase 61 Units/L (25-115) 06/26/24 21:38 Lipase 20 Units/L (16-77) 06/26/24 21:38 Specimen Type Clean catch urine 06/27/24 07:48 Urine Color Yellow (YELLOW) 06/27/24 07:48 Urine Appearance Clear (CLEAR) 06/27/24 07:48 Urine pH 5.0 (5.0 - 8.0) 06/27/24 07:48 Ur Specific [place] 1.020 (1.000-1.030) 06/27/24 07:48 Urine Protein 2+ (NEGATIVE) 06/27/24 07:48 Urine Glucose (UA) 2+ (NEGATIVE) 06/27/24 07:48 Urine Ketones Negative (NEGATIVE) 06/27/24 07:48 Urine Blood Negative (NEGATIVE) 06/27/24 07:48 Urine Nitrite Negative (NEGATIVE) 06/27/24 07:48 Urine Bilirubin Negative (NEGATIVE) 06/27/24 07:48 Urine Urobilinogen Normal (NORMAL) 06/27/24 07:48 Ur Leukocyte Esterase Negative (NEGATIVE) 06/27/24 07:48 Urine RBC None seen /HPF (0-3) 06/27/24 07:48 Urine WBC 0-2 /HPF (0-5) 06/27/24 07:48 Ur Squamous Epith Cells Rare /HPF (NEGATIVE) 06/27/24 07:48 Calcium Oxalate Crystal Rare /HPF (NEGATIVE) 06/27/24 07:48 Other Crystals Few /HPF (NEGATIVE) 06/27/24 07:48 Urine Bacteria Negative /HPF (NEGATIVE) 06/27/24 07:48 Ur Culture Indicated? 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 OOB , incentive spirometer , DVT prophylaxis . clear liquid today .. Same IV antibiotics and anticoagulants, albumin and Lasix.. may start on Plavix and Aspirin . 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
[2024-07-05 05:14] LABS: BASOPHILS # (AUTO) 0.1 X10^3/uL (0.0-0.1); BASOPHILS % (AUTO) 0.4 % (0.2-1.0); EOSINOPHILS # (AUTO) 0.3 x10^3/uL (0.0-0.2); EOSINOPHILS % (AUTO) 1.4 % (0.9-2.9); HEMATOCRIT 32.9 % (42.0-54.0); HEMOGLOBIN 10.6 g/dL (13.5-18.0); LYMPHOCYTES # (AUTO) 3.6 X10^3/uL (1.3-2.9); LYMPHOCYTES % (AUTO) 18.7 % (21.0-51.0); MEAN CORPUSCULAR HEMOGLOBIN 27.4 pg (27.0-34.0); MEAN CORPUSCULAR HGB CONC 32.4 g/dL (33.0-35.0); MEAN CORPUSCULAR VOLUME 84.8 fL (80.0-100.0); MEAN PLATELET VOLUME 7.1 fL (7.4-11.0); MONOCYTES # (AUTO) 1.1 x10^3/uL (0.3-0.8); MONOCYTES % (AUTO) 5.5 % (0.0-13.0); NEUTROPHILS # (AUTO) 14.4 x10^3/uL (2.2-4.8); PLATELET COUNT 358 X10^3/uL (150.0-450.0); RED BLOOD COUNT 3.88 X10^6/uL (4.7-6.0); RED CELL DISTRIBUTION WIDTH 15.3 % (11.6-16.5); WHITE BLOOD COUNT 19.5 X10^3/uL (3.6-10.0)
[2024-07-05 05:25] LABS: ALANINE AMINOTRANSFERASE 7 Units/L (12-78); ALBUMIN 2.2 g/dL (3.4-5.0); ALKALINE PHOSPHATASE 45 Units/L (46-116); ASPARTATE AMINO TRANSFERASE 8 Units/L (15-37); BLOOD UREA NITROGEN 3 mg/dL (7-18); CALCIUM 8.1 mg/dL (8.5-10.1); CARBON DIOXIDE 28.5 mmol/L (21-32); CHLORIDE 99 mmol/L (98-107); COR CA(FOR HYPOALB) 9.5 mg/dL (8.5-10.1); COR NA(FOR HYPERGLY) 137 mmol/L (136-145); CREATININE 0.91 mg/dL (0.70-1.30); GLUCOSE 192 mg/dL (65-99); MAGNESIUM 1.8 mg/dL (2.0-2.9); POTASSIUM 3.3 mmol/L (3.5-5.1); SODIUM 135 mmol/L (136-145); TOTAL PROTEIN 5.5 g/dL (6.4-8.2); eGFR NON BLACK RACES > 60 (>60)
[2024-07-05] MEDS ORDERED: CONSULT PHARMACY - POTASSIUM & MAGNESIUM XX SCH (06:00)
[2024-07-05] MEDS ORDERED: MAG-OX TAB ONE (07:45)
[2024-07-05] MEDS ORDERED: K-DUR TAB 20 MEQ PO ONE (07:45)
[2024-07-05] MEDS: MAG-OX TAB PO SCH (08:05)
[2024-07-05] MEDS: K-DUR TAB 20 MEQ PO SCH (08:06)
[2024-07-05] MEDS: ZOFRAN INJ 4 MG VIAL IVP PRN (09:37)
--- NOTE | 2024-07-05 09:54 | PCM.PROG ---
Progress Note Progress Note for Day of Date of Exam: 07/05/24 Subjective Subjective: POD#4 s/p laparotomy resection of large perforated sigmoid tumor and partial small bowel resection, partial omentectomy and repair of umbilical hernia. Patient seen at bedside, no acute events overnight. He has been doing well. His appetite is slowly improving. He was able to eat a little better yesterday and this morning. He still has MILTON drain and siegel in place. He states pain has been well-controlled with medications. Denies any N/V/D. He has been using IS. Labs/imaging reviewed: -WBC 19.5 Hgb 10.6 K:3.3 Ma.8 -CXR: central line in place Plan: continue ICU monitoring. Follow surgery recommendations. Monitor MILTON output. Diet as per surgery. Replace electrolytes as per protocol. Continue pain control, Continue Zosyn and flagyl. Continue other home medications. Remove siegel as tolerated. Resume home dose torsemide. Monitor AM labs/imaging. Past Medical Family Social History Past Med/Fam/Surg Hx: No changes since H&P Allergies: Allergies No Known Drug Allergies Allergy (Unknown, Verified 06/26/24 21:23) Onset Date: 04/16/2012 Vital Signs and I&O's Vital Signs: Vital Signs Temperature 98.2 F Temperature 98.4 F Pulse Rate 75 Pulse Rate 76 Pulse Rate 77 Pulse Rate 78 Pulse Rate 73 Pulse Rate 74 Pulse Rate 76 Respiratory Rate 20 Respiratory Rate 18 Respiratory Rate 16 Respiratory Rate 16 Respiratory Rate 20 Respiratory Rate 18 Respiratory Rate 17 Respiratory Rate 15 Respiratory Rate 22 Blood Pressure 143/80 Blood Pressure 142/77 Blood Pressure 159/78 Blood Pressure 160/81 Blood Pressure 138/75 Blood Pressure 149/70 Blood Pressure 149/70 O2 Sat by Pulse Oximetry 96 O2 Sat by Pulse Oximetry 96 O2 Sat by Pulse Oximetry 96 O2 Sat by Pulse Oximetry 96 O2 Sat by Pulse Oximetry 96 O2 Sat by Pulse Oximetry 96 O2 Sat by Pulse Oximetry 96 Intake and Output: Intake & Output 07/02/24 07/03/24 07/04/24 07/05/24 23:59 23:59 23:59 23:59 Intake Total 4065 / 4065 3643 / 3643 4965 / 4965 625 / 625 Output Total 1577 / 1577 4080 / 4080 2735 / 2735 340 / 340 Balance 2488 / 2488 -437 / -437 2230 / 2230 285 / 285 Physical Exam Oriented: Normal Eyes: Normal Nose: Normal Throat: Normal Respiratory: Normal Cardiovascular: Normal Auscultation: Bowel Sounds: Normal Palpation: Normal Tenderness: Mild and Other (bandage noted, [place] drain present ) Skin: Normal Musculoskeletal: Normal Psychiatric: Normal Mood Description: Calm Affect: Normal Speech Pattern: Clear and Appropriate Laboratory and Diagnostics 07/05/24 04:37 07/05/24 04:37 Labs: 06/26/24 23:16 Blood Blood Culture - Final 06/26/24 21:38 Blood Blood Culture - Final 06/29/24 17:26 Blood Blood Culture - Preliminary 06/29/24 17:20 Blood Blood Culture - Preliminary Laboratory WBC 19.5 X10^3/uL (3.6-10.0) H 07/05/24 04:37 RBC 3.88 X10^6/uL (4.7-6.0) L 07/05/24 04:37 Hgb 10.6 g/dL (13.5-18.0) L 07/05/24 04:37 Hct 32.9 % (42.0-54.0) L 07/05/24 04:37 MCV 84.8 fL (80.0-100.0) 07/05/24 04:37 MCH 27.4 pg (27.0-34.0) 07/05/24 04:37 MCHC 32.4 g/dL (33.0-35.0) L 07/05/24 04:37 RDW 15.3 % (11.6-16.5) 07/05/24 04:37 Plt Count 358 X10^3/uL (150.0-450.0) 07/05/24 04:37 Plt Count Comment Adequate (ADEQUATE) 07/04/24 04:46 MPV 7.1 fL (7.4-11.0) L 07/05/24 04:37 Neut % (Auto) 74.0 % (42.0-75.0) 07/05/24 04:37 Lymph % (Auto) 18.7 % (21.0-51.0) L 07/05/24 04:37 [place] % (Auto) 5.5 % (0.0-13.0) 07/05/24 04:37 Eos % (Auto) 1.4 % (0.9-2.9) 07/05/24 04:37 Baso % (Auto) 0.4 % (0.2-1.0) 07/05/24 04:37 Neut # (Auto) 14.4 x10^3/uL (2.2-4.8) H 07/05/24 04:37 Lymph # (Auto) 3.6 X10^3/uL (1.3-2.9) H 07/05/24 04:37 [place] # (Auto) 1.1 x10^3/uL (0.3-0.8) H 07/05/24 04:37 Eos # (Auto) 0.3 x10^3/uL (0.0-0.2) H 07/05/24 04:37 Baso # (Auto) 0.1 X10^3/uL (0.0-0.1) 07/05/24 04:37 Absolute Nucleated RBC 0.0 /100WBC 07/05/24 04:37 Total Counted 100 07/04/24 04:46 Neutrophils % (Manual) 85 % (39-76) H 07/04/24 04:46 Band Neutrophils % 1 % (0-10) 07/02/24 04:11 Lymphocytes % (Manual) 8 % (13-43) L 07/04/24 04:46 Monocytes % (Manual) 5 % (4-9) 07/04/24 04:46 Eosinophils % (Manual) 2 % (0-6) 07/04/24 04:46 Plt Morphology Comment Normal (NORMAL) 07/04/24 04:46 RBC Morphology Normal (NORMAL) 07/04/24 04:46 Hypochromasia Slight A 06/27/24 04:13 Anisocytosis Slight A 06/30/24 04:03 Sodium 135 mmol/L (136-145) L 07/05/24 04:37 Corrected Sodium 137 mmol/L (136-145) 07/05/24 04:37 Potassium 3.3 mmol/L (3.5-5.1) L 07/05/24 04:37 Chloride 99 mmol/L (98-107) 07/05/24 04:37 Carbon Dioxide 28.5 mmol/L (21-32) 07/05/24 04:37 BUN 3 mg/dL (7-18) L 07/05/24 04:37 Creatinine 0.91 mg/dL (0.70-1.30) 07/05/24 04:37 Est GFR (MDRD) Af Amer > 60 (>60) 07/05/24 04:37 Est GFR (MDRD) Non-Af > 60 (>60) 07/05/24 04:37 Glucose 192 mg/dL (65-99) H 07/05/24 04:37 POC Glucose (mg/dL) 195 mg/dL (65-99) H 07/05/24 05:07 Lactic Acid 1.9 mmol/L (0.4-2.0) 06/27/24 01:15 Calcium 8.1 mg/dL (8.5-10.1) L 07/05/24 04:37 Corrected Calcium 9.5 mg/dL (8.5-10.1) 07/05/24 04:37 Magnesium 1.8 mg/dL (2.0-2.9) L 07/05/24 04:37 Total Bilirubin 0.70 mg/dL (0.2-1.0) 07/05/24 04:37 AST 8 Units/L (15-37) L 07/05/24 04:37 ALT 7 Units/L (12-78) L 07/05/24 04:37 Alkaline Phosphatase 45 Units/L (46-116) L 07/05/24 04:37 Total Protein 5.5 g/dL (6.4-8.2) L 07/05/24 04:37 Albumin 2.2 g/dL (3.4-5.0) L 07/05/24 04:37 Globulin 3.3 g/dL (2.5-4.5) 07/05/24 04:37 Albumin/Globulin Ratio 0.7 Ratio (1.1-2.1) L 07/05/24 04:37 Amylase 61 Units/L (25-115) 06/26/24 21:38 Lipase 20 Units/L (16-77) 06/26/24 21:38 Specimen Type Clean catch urine 06/27/24 07:48 Urine Color Yellow (YELLOW) 06/27/24 07:48 Urine Appearance Clear (CLEAR) 06/27/24 07:48 Urine pH 5.0 (5.0 - 8.0) 06/27/24 07:48 Ur Specific [place] 1.020 (1.000-1.030) 06/27/24 07:48 Urine Protein 2+ (NEGATIVE) 06/27/24 07:48 Urine Glucose (UA) 2+ (NEGATIVE) 06/27/24 07:48 Urine Ketones Negative (NEGATIVE) 06/27/24 07:48 Urine Blood Negative (NEGATIVE) 06/27/24 07:48 Urine Nitrite Negative (NEGATIVE) 06/27/24 07:48 Urine Bilirubin Negative (NEGATIVE) 06/27/24 07:48 Urine Urobilinogen Normal (NORMAL) 06/27/24 07:48 Ur Leukocyte Esterase Negative (NEGATIVE) 06/27/24 07:48 Urine RBC None seen /HPF (0-3) 06/27/24 07:48 Urine WBC 0-2 /HPF (0-5) 06/27/24 07:48 Ur Squamous Epith Cells Rare /HPF (NEGATIVE) 06/27/24 07:48 Calcium Oxalate Crystal Rare /HPF (NEGATIVE) 06/27/24 07:48 Other Crystals Few /HPF (NEGATIVE) 06/27/24 07:48 Urine Bacteria Negative /HPF (NEGATIVE) 06/27/24 07:48 Ur Culture Indicated? No/not indicated 06/27/24 07:48 SARS-CoV-2 (PCR) Negative (NEGATIVE) 06/30/24 10:12 Influenza Type A (PCR) Negative (NEGATIVE) 06/30/24 10:12 Influenza Type B (PCR) Negative (NEGATIVE) 06/30/24 10:12 RSV (PCR) Negative (NEGATIVE) 06/30/24 10:12 Blood Type O POSITIVE 06/29/24 17:20 Antibody Screen Negative 06/29/24 17:20 Crossmatch See Detail 06/29/24 17:20 Plan (1) Post-op pain: Status: Acute (2) Cancer of sigmoid colon: Status: Acute (3) Anemia: Status: Acute Qualifiers: Anemia type: unspecified type Qualified Code(s): D64.9 - Anemia, unspecified (4) History of CVA (cerebrovascular accident): Status: Acute (5) TED (acute kidney injury): Status: Acute (6) Hypomagnesemia: Status: Acute (7) Hypokalemia: Status: Acute
--- NOTE | 2024-07-05 16:34 | DR.PROGNOT ---
HOSPITAL PROGRESS NOTE Progress Note for Day of: Progress Note Date: 07/05/24 Chief Complaint Chief Complaint: PO day 4 . 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 Awake , alert, and stable . tolerating liquid diet .no BM yet, passing flatus , good urine output, no shortness of breath. WBC 19.5. Hgb 10.1. 192. [place] 1.5 . K 3.3 . Magnesium 1.9. Moderate drainage in [place]. Past Medical Family Social History Past Med/Fam/Surg Hx: No changes since H&P Allergies: Allergies No Known Drug Allergies Allergy (Unknown, Verified 06/26/24 21:23) Onset Date: 04/16/2012 Review Of Systems Changes in ROS: see HPI Vital Signs Vital Signs: Vital Signs Temperature 98.5 F Temperature 98.4 F Pulse Rate 81 Pulse Rate 83 Pulse Rate 95 Pulse Rate 88 Pulse Rate 82 Pulse Rate 78 Pulse Rate 80 Pulse Rate 81 Respiratory Rate 14 Respiratory Rate 25 Respiratory Rate 24 Respiratory Rate 21 Respiratory Rate 20 Respiratory Rate 17 Respiratory Rate 19 Respiratory Rate 21 Respiratory Rate 17 Respiratory Rate 20 Blood Pressure 135/71 Blood Pressure 129/66 Blood Pressure 132/65 Blood Pressure 138/63 Blood Pressure 120/60 Blood Pressure 133/58 Blood Pressure 121/58 Blood Pressure 148/68 O2 Sat by Pulse Oximetry 96 O2 Sat by Pulse Oximetry 95 O2 Sat by Pulse Oximetry 96 O2 Sat by Pulse Oximetry 97 O2 Sat by Pulse Oximetry 96 O2 Sat by Pulse Oximetry 93 O2 Sat by Pulse Oximetry 92 O2 Sat by Pulse Oximetry 95 Physical Exam Oriented: Normal Eyes: Normal Nose: Normal Throat: Normal Respiratory: Normal Cardiovascular: Normal GI:Auscultation: Normal GI:Palpation: Normal GI: Tenderness: Mild and Other (bandage noted, [place] drain present ) Skin: Normal Musculoskeletal: Normal Psychiatric: Normal Mood Description: Calm Affect: Normal Speech Pattern: Clear and Appropriate Laboratory and Diagnostics 07/05/24 04:37 07/05/24 04:37 Labs: 06/29/24 17:26 Blood Blood Culture - Final 06/29/24 17:20 Blood Blood Culture - Final 06/26/24 23:16 Blood Blood Culture - Final 06/26/24 21:38 Blood Blood Culture - Final Laboratory WBC 19.5 X10^3/uL (3.6-10.0) H 07/05/24 04:37 RBC 3.88 X10^6/uL (4.7-6.0) L 07/05/24 04:37 Hgb 10.6 g/dL (13.5-18.0) L 07/05/24 04:37 Hct 32.9 % (42.0-54.0) L 07/05/24 04:37 MCV 84.8 fL (80.0-100.0) 07/05/24 04:37 MCH 27.4 pg (27.0-34.0) 07/05/24 04:37 MCHC 32.4 g/dL (33.0-35.0) L 07/05/24 04:37 RDW 15.3 % (11.6-16.5) 07/05/24 04:37 Plt Count 358 X10^3/uL (150.0-450.0) 07/05/24 04:37 Plt Count Comment Adequate (ADEQUATE) 07/04/24 04:46 MPV 7.1 fL (7.4-11.0) L 07/05/24 04:37 Neut % (Auto) 74.0 % (42.0-75.0) 07/05/24 04:37 Lymph % (Auto) 18.7 % (21.0-51.0) L 07/05/24 04:37 [place] % (Auto) 5.5 % (0.0-13.0) 07/05/24 04:37 Eos % (Auto) 1.4 % (0.9-2.9) 07/05/24 04:37 Baso % (Auto) 0.4 % (0.2-1.0) 07/05/24 04:37 Neut # (Auto) 14.4 x10^3/uL (2.2-4.8) H 07/05/24 04:37 Lymph # (Auto) 3.6 X10^3/uL (1.3-2.9) H 07/05/24 04:37 [place] # (Auto) 1.1 x10^3/uL (0.3-0.8) H 07/05/24 04:37 Eos # (Auto) 0.3 x10^3/uL (0.0-0.2) H 07/05/24 04:37 Baso # (Auto) 0.1 X10^3/uL (0.0-0.1) 07/05/24 04:37 Absolute Nucleated RBC 0.0 /100WBC 07/05/24 04:37 Total Counted 100 07/04/24 04:46 Neutrophils % (Manual) 85 % (39-76) H 07/04/24 04:46 Band Neutrophils % 1 % (0-10) 07/02/24 04:11 Lymphocytes % (Manual) 8 % (13-43) L 07/04/24 04:46 Monocytes % (Manual) 5 % (4-9) 07/04/24 04:46 Eosinophils % (Manual) 2 % (0-6) 07/04/24 04:46 Plt Morphology Comment Normal (NORMAL) 07/04/24 04:46 RBC Morphology Normal (NORMAL) 07/04/24 04:46 Hypochromasia Slight A 06/27/24 04:13 Anisocytosis Slight A 06/30/24 04:03 Sodium 135 mmol/L (136-145) L 07/05/24 04:37 Corrected Sodium 137 mmol/L (136-145) 07/05/24 04:37 Potassium 3.3 mmol/L (3.5-5.1) L 07/05/24 04:37 Chloride 99 mmol/L (98-107) 07/05/24 04:37 Carbon Dioxide 28.5 mmol/L (21-32) 07/05/24 04:37 BUN 3 mg/dL (7-18) L 07/05/24 04:37 Creatinine 0.91 mg/dL (0.70-1.30) 07/05/24 04:37 Est GFR (MDRD) Af Amer > 60 (>60) 07/05/24 04:37 Est GFR (MDRD) Non-Af > 60 (>60) 07/05/24 04:37 Glucose 192 mg/dL (65-99) H 07/05/24 04:37 POC Glucose (mg/dL) 278 mg/dL (65-99) H 07/05/24 16:14 Lactic Acid 1.9 mmol/L (0.4-2.0) 06/27/24 01:15 Calcium 8.1 mg/dL (8.5-10.1) L 07/05/24 04:37 Corrected Calcium 9.5 mg/dL (8.5-10.1) 07/05/24 04:37 Magnesium 1.8 mg/dL (2.0-2.9) L 07/05/24 04:37 Total Bilirubin 0.70 mg/dL (0.2-1.0) 07/05/24 04:37 AST 8 Units/L (15-37) L 07/05/24 04:37 ALT 7 Units/L (12-78) L 07/05/24 04:37 Alkaline Phosphatase 45 Units/L (46-116) L 07/05/24 04:37 Total Protein 5.5 g/dL (6.4-8.2) L 07/05/24 04:37 Albumin 2.2 g/dL (3.4-5.0) L 07/05/24 04:37 Globulin 3.3 g/dL (2.5-4.5) 07/05/24 04:37 Albumin/Globulin Ratio 0.7 Ratio (1.1-2.1) L 07/05/24 04:37 Amylase 61 Units/L (25-115) 06/26/24 21:38 Lipase 20 Units/L (16-77) 06/26/24 21:38 Specimen Type Clean catch urine 06/27/24 07:48 Urine Color Yellow (YELLOW) 06/27/24 07:48 Urine Appearance Clear (CLEAR) 06/27/24 07:48 Urine pH 5.0 (5.0 - 8.0) 06/27/24 07:48 Ur Specific [place] 1.020 (1.000-1.030) 06/27/24 07:48 Urine Protein 2+ (NEGATIVE) 06/27/24 07:48 Urine Glucose (UA) 2+ (NEGATIVE) 06/27/24 07:48 Urine Ketones Negative (NEGATIVE) 06/27/24 07:48 Urine Blood Negative (NEGATIVE) 06/27/24 07:48 Urine Nitrite Negative (NEGATIVE) 06/27/24 07:48 Urine Bilirubin Negative (NEGATIVE) 06/27/24 07:48 Urine Urobilinogen Normal (NORMAL) 06/27/24 07:48 Ur Leukocyte Esterase Negative (NEGATIVE) 06/27/24 07:48 Urine RBC None seen /HPF (0-3) 06/27/24 07:48 Urine WBC 0-2 /HPF (0-5) 06/27/24 07:48 Ur Squamous Epith Cells Rare /HPF (NEGATIVE) 06/27/24 07:48 Calcium Oxalate Crystal Rare /HPF (NEGATIVE) 06/27/24 07:48 Other Crystals Few /HPF (NEGATIVE) 06/27/24 07:48 Urine Bacteria Negative /HPF (NEGATIVE) 06/27/24 07:48 Ur Culture Indicated? 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 OOB , incentive spirometer , DVT prophylaxis . Soft diet.. Same IV antibiotics and anticoagulants, albumin and Lasix.. may start on Plavix and Aspirin . 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
[2024-07-06 05:19] LABS: BASOPHILS % (AUTO) 0.2 % (0.2-1.0); EOSINOPHILS # (AUTO) 0.1 x10^3/uL (0.0-0.2); EOSINOPHILS % (AUTO) 0.5 % (0.9-2.9); HEMATOCRIT 30.1 % (42.0-54.0); HEMOGLOBIN 9.9 g/dL (13.5-18.0); LYMPHOCYTES % (AUTO) 11.2 % (21.0-51.0); MEAN CORPUSCULAR HEMOGLOBIN 27.5 pg (27.0-34.0); MEAN CORPUSCULAR HGB CONC 32.7 g/dL (33.0-35.0); MEAN CORPUSCULAR VOLUME 84.1 fL (80.0-100.0); MEAN PLATELET VOLUME 7.2 fL (7.4-11.0); MONOCYTES # (AUTO) 1.1 x10^3/uL (0.3-0.8); MONOCYTES % (AUTO) 5.8 % (0.0-13.0); NEUTROPHILS # (AUTO) 14.9 x10^3/uL (2.2-4.8); NEUTROPHILS % (AUTO) 82.3 % (42.0-75.0); PLATELET COUNT 360 X10^3/uL (150.0-450.0); RED BLOOD COUNT 3.58 X10^6/uL (4.7-6.0); RED CELL DISTRIBUTION WIDTH 15.7 % (11.6-16.5); WHITE BLOOD COUNT 18.1 X10^3/uL (3.6-10.0)
[2024-07-06 05:36] LABS: ALANINE AMINOTRANSFERASE 7 Units/L (12-78); ALBUMIN 2.3 g/dL (3.4-5.0); ALKALINE PHOSPHATASE 39 Units/L (46-116); ASPARTATE AMINO TRANSFERASE 11 Units/L (15-37); BLOOD UREA NITROGEN 2 mg/dL (7-18); CALCIUM 7.8 mg/dL (8.5-10.1); CARBON DIOXIDE 29.9 mmol/L (21-32); CHLORIDE 99 mmol/L (98-107); COR CA(FOR HYPOALB) 9.2 mg/dL (8.5-10.1); COR NA(FOR HYPERGLY) 137 mmol/L (136-145); CREATININE 0.85 mg/dL (0.70-1.30); GLUCOSE 263 mg/dL (65-99); MAGNESIUM 1.8 mg/dL (2.0-2.9); POTASSIUM 3.2 mmol/L (3.5-5.1); SODIUM 133 mmol/L (136-145); TOTAL PROTEIN 5.3 g/dL (6.4-8.2); eGFR NON BLACK RACES > 60 (>60)
[2024-07-06] MEDS ORDERED: CONSULT PHARMACY - POTASSIUM & MAGNESIUM XX SCH (06:00)
[2024-07-06] MEDS ORDERED: MAG-OX TAB PO SCH (09:00)
[2024-07-06] MEDS ORDERED: K-DUR TAB 20 MEQ PO SCH (09:00)
[2024-07-06] MEDS: 1/2 NS IV SCH (09:56)
[2024-07-06] MEDS: KCL IV SCH (09:56)
[2024-07-06] MEDS: D5 IV SCH (09:56)
[2024-07-06] MEDS: MAGNESIUM SULFATE IV SCH (09:56)
--- NOTE | 2024-07-06 10:11 | PCM.PROG ---
Progress Note Progress Note for Day of Date of Exam: 07/06/24 Subjective Subjective: POD#5 s/p laparotomy resection of large perforated sigmoid tumor and partial small bowel resection, partial omentectomy and repair of umbilical hernia. Patient seen at bedside, no acute events overnight. He has been having N/V since yesterday. He was not able to tolerate soft diet. He has been drinking liquids but did have a vomiting episode this morning. He states he feels full. His a bdominal pain is well-controlled. He is passing gas, no BM since surgery. He has been ambulating some in the room and sitting on the recliner. Moya has been removed, patient did void once after that. Labs/imaging reviewed: -WBC 18 Hgb 9.9 K:3.2 Ma.8 Plan: continue ICU monitoring. Follow surgery recommendations. Will change diet to clears. Order KUB. Continue zofran and reglan prn. Monitor MILTON output. Replace electrolytes as per protocol. Continue pain control, Continue Zosyn and flagyl. Continue other home medications. Monitor AM labs/imaging. Past Medical Family Social History Past Med/Fam/Surg Hx: No changes since H&P Allergies: Allergies No Known Drug Allergies Allergy (Unknown, Verified 06/26/24 21:23) Onset Date: 04/16/2012 Vital Signs and I&O's Vital Signs: Vital Signs Temperature 97.7 F Pulse Rate 105 Pulse Rate 98 Pulse Rate 103 Pulse Rate 108 Pulse Rate 89 Pulse Rate 99 Pulse Rate 88 Respiratory Rate 16 Respiratory Rate 16 Respiratory Rate 21 Respiratory Rate 12 Respiratory Rate 22 Respiratory Rate 14 Blood Pressure 139/75 Blood Pressure 151/74 Blood Pressure 135/76 Blood Pressure 139/71 Blood Pressure 149/76 Blood Pressure 138/74 O2 Sat by Pulse Oximetry 95 O2 Sat by Pulse Oximetry 96 O2 Sat by Pulse Oximetry 97 O2 Sat by Pulse Oximetry 95 O2 Sat by Pulse Oximetry 97 O2 Sat by Pulse Oximetry 96 O2 Sat by Pulse Oximetry 96 Intake and Output: Intake & Output 07/03/24 07/04/24 07/05/24 07/06/24 23:59 23:59 23:59 23:59 Intake Total 3643 / 3643 4965 / 4965 3281 / 3281 525 / 525 Output Total 4080 / 4080 2735 / 2735 1130 / 1130 540 / 540 Balance -437 / -437 2230 / 2230 2151 / 2151 -15 / -15 Physical Exam Oriented: Normal Eyes: Normal Nose: Normal Throat: Normal Respiratory: Normal Cardiovascular: Normal Auscultation: Bowel Sounds: Normal Tenderness: Mild and Other (bandage noted, MILTON drain present ) Skin: Normal Musculoskeletal: Normal Psychiatric: Normal Mood Description: Calm Affect: Normal Speech Pattern: Clear and Appropriate Laboratory and Diagnostics 07/06/24 04:38 07/06/24 04:38 Labs: 06/29/24 17:26 Blood Blood Culture - Final 06/29/24 17:20 Blood Blood Culture - Final 06/26/24 23:16 Blood Blood Culture - Final 06/26/24 21:38 Blood Blood Culture - Final Laboratory WBC 18.1 X10^3/uL (3.6-10.0) H 07/06/24 04:38 RBC 3.58 X10^6/uL (4.7-6.0) L 07/06/24 04:38 Hgb 9.9 g/dL (13.5-18.0) L 07/06/24 04:38 Hct 30.1 % (42.0-54.0) L 07/06/24 04:38 MCV 84.1 fL (80.0-100.0) 07/06/24 04:38 MCH 27.5 pg (27.0-34.0) 07/06/24 04:38 MCHC 32.7 g/dL (33.0-35.0) L 07/06/24 04:38 RDW 15.7 % (11.6-16.5) 07/06/24 04:38 Plt Count 360 X10^3/uL (150.0-450.0) 07/06/24 04:38 Plt Count Comment Adequate (ADEQUATE) 07/04/24 04:46 MPV 7.2 fL (7.4-11.0) L 07/06/24 04:38 Neut % (Auto) 82.3 % (42.0-75.0) H 07/06/24 04:38 Lymph % (Auto) 11.2 % (21.0-51.0) L 07/06/24 04:38 [place] % (Auto) 5.8 % (0.0-13.0) 07/06/24 04:38 Eos % (Auto) 0.5 % (0.9-2.9) L 07/06/24 04:38 Baso % (Auto) 0.2 % (0.2-1.0) 07/06/24 04:38 Neut # (Auto) 14.9 x10^3/uL (2.2-4.8) H 07/06/24 04:38 Lymph # (Auto) 2.0 X10^3/uL (1.3-2.9) 07/06/24 04:38 [place] # (Auto) 1.1 x10^3/uL (0.3-0.8) H 07/06/24 04:38 Eos # (Auto) 0.1 x10^3/uL (0.0-0.2) 07/06/24 04:38 Baso # (Auto) 0.0 X10^3/uL (0.0-0.1) 07/06/24 04:38 Absolute Nucleated RBC 0.0 /100WBC 07/06/24 04:38 Total Counted 100 07/04/24 04:46 Neutrophils % (Manual) 85 % (39-76) H 07/04/24 04:46 Band Neutrophils % 1 % (0-10) 07/02/24 04:11 Lymphocytes % (Manual) 8 % (13-43) L 07/04/24 04:46 Monocytes % (Manual) 5 % (4-9) 07/04/24 04:46 Eosinophils % (Manual) 2 % (0-6) 07/04/24 04:46 Plt Morphology Comment Normal (NORMAL) 07/04/24 04:46 RBC Morphology Normal (NORMAL) 07/04/24 04:46 Hypochromasia Slight A 06/27/24 04:13 Anisocytosis Slight A 06/30/24 04:03 Sodium 133 mmol/L (136-145) L 07/06/24 04:38 Corrected Sodium 137 mmol/L (136-145) 07/06/24 04:38 Potassium 3.2 mmol/L (3.5-5.1) L 07/06/24 04:38 Chloride 99 mmol/L (98-107) 07/06/24 04:38 Carbon Dioxide 29.9 mmol/L (21-32) 07/06/24 04:38 BUN 2 mg/dL (7-18) L 07/06/24 04:38 Creatinine 0.85 mg/dL (0.70-1.30) 07/06/24 04:38 Est GFR (MDRD) Af Amer > 60 (>60) 07/06/24 04:38 Est GFR (MDRD) Non-Af > 60 (>60) 07/06/24 04:38 Glucose 263 mg/dL (65-99) H 07/06/24 04:38 POC Glucose (mg/dL) 250 mg/dL (65-99) H 07/06/24 05:19 Lactic Acid 1.9 mmol/L (0.4-2.0) 06/27/24 01:15 Calcium 7.8 mg/dL (8.5-10.1) L 07/06/24 04:38 Corrected Calcium 9.2 mg/dL (8.5-10.1) 07/06/24 04:38 Magnesium 1.8 mg/dL (2.0-2.9) L 07/06/24 04:38 Total Bilirubin 0.60 mg/dL (0.2-1.0) 07/06/24 04:38 AST 11 Units/L (15-37) L 07/06/24 04:38 ALT 7 Units/L (12-78) L 07/06/24 04:38 Alkaline Phosphatase 39 Units/L (46-116) L 07/06/24 04:38 Total Protein 5.3 g/dL (6.4-8.2) L 07/06/24 04:38 Albumin 2.3 g/dL (3.4-5.0) L 07/06/24 04:38 Globulin 3.0 g/dL (2.5-4.5) 07/06/24 04:38 Albumin/Globulin Ratio 0.8 Ratio (1.1-2.1) L 07/06/24 04:38 Amylase 61 Units/L (25-115) 06/26/24 21:38 Lipase 20 Units/L (16-77) 06/26/24 21:38 Specimen Type Clean catch urine 06/27/24 07:48 Urine Color Yellow (YELLOW) 06/27/24 07:48 Urine Appearance Clear (CLEAR) 06/27/24 07:48 Urine pH 5.0 (5.0 - 8.0) 06/27/24 07:48 Ur Specific [place] 1.020 (1.000-1.030) 06/27/24 07:48 Urine Protein 2+ (NEGATIVE) 06/27/24 07:48 Urine Glucose (UA) 2+ (NEGATIVE) 06/27/24 07:48 Urine Ketones Negative (NEGATIVE) 06/27/24 07:48 Urine Blood Negative (NEGATIVE) 06/27/24 07:48 Urine Nitrite Negative (NEGATIVE) 06/27/24 07:48 Urine Bilirubin Negative (NEGATIVE) 06/27/24 07:48 Urine Urobilinogen Normal (NORMAL) 06/27/24 07:48 Ur Leukocyte Esterase Negative (NEGATIVE) 06/27/24 07:48 Urine RBC None seen /HPF (0-3) 06/27/24 07:48 Urine WBC 0-2 /HPF (0-5) 06/27/24 07:48 Ur Squamous Epith Cells Rare /HPF (NEGATIVE) 06/27/24 07:48 Calcium Oxalate Crystal Rare /HPF (NEGATIVE) 06/27/24 07:48 Other Crystals Few /HPF (NEGATIVE) 06/27/24 07:48 Urine Bacteria Negative /HPF (NEGATIVE) 06/27/24 07:48 Ur Culture Indicated? No/not indicated 06/27/24 07:48 SARS-CoV-2 (PCR) Negative (NEGATIVE) 06/30/24 10:12 Influenza Type A (PCR) Negative (NEGATIVE) 06/30/24 10:12 Influenza Type B (PCR) Negative (NEGATIVE) 06/30/24 10:12 RSV (PCR) Negative (NEGATIVE) 06/30/24 10:12 Blood Type O POSITIVE 06/29/24 17:20 Antibody Screen Negative 06/29/24 17:20 Crossmatch See Detail 06/29/24 17:20 Plan (1) Post-op pain: Status: Acute (2) Cancer of sigmoid colon: Status: Acute (3) Anemia: Status: Acute Qualifiers: Anemia type: unspecified type Qualified Code(s): D64.9 - Anemia, unspecified (4) History of CVA (cerebrovascular accident): Status: Acute (5) TED (acute kidney injury): Status: Acute (6) Hypomagnesemia: Status: Acute (7) Hypokalemia: Status: Acute
--- NOTE | 2024-07-06 11:21 | DR.PROGNOT ---
HOSPITAL PROGRESS NOTE Progress Note for Day of: Progress Note Date: 07/06/24 Chief Complaint Chief Complaint: PO day 5 . 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 Awake , alert, and stable . Vomited twice last night. Still complaining of some nausea today. He had no rmal bowel movement this morning. White count is 18.1 potassium 3.2 blood sugar 263 magnesium 1.8. MILTON was DC'd Past Medical Family Social History Past Med/Fam/Surg Hx: No changes since H&P Allergies: Allergies No Known Drug Allergies Allergy (Unknown, Verified 06/26/24 21:23) Onset Date: 04/16/2012 Review Of Systems Changes in ROS: see HPI Vital Signs Vital Signs: Vital Signs Temperature 97.7 F Pulse Rate 105 Pulse Rate 98 Pulse Rate 103 Pulse Rate 108 Pulse Rate 89 Respiratory Rate 16 Respiratory Rate 16 Respiratory Rate 21 Respiratory Rate 12 Blood Pressure 139/75 Blood Pressure 151/74 Blood Pressure 135/76 Blood Pressure 139/71 O2 Sat by Pulse Oximetry 95 O2 Sat by Pulse Oximetry 96 O2 Sat by Pulse Oximetry 97 O2 Sat by Pulse Oximetry 95 O2 Sat by Pulse Oximetry 97 Physical Exam Oriented: Normal Eyes: Normal Nose: Normal Throat: Normal Respiratory: Normal Cardiovascular: Normal GI:Auscultation: Normal GI:Palpation: Normal GI: Tenderness: Mild and Other (Soft abdomen with only mild diffuse tenderness, incision is clean, no wound infection.) Skin: Normal Musculoskeletal: Normal Psychiatric: Normal Mood Description: Calm Affect: Normal Speech Pattern: Clear and Appropriate Laboratory and Diagnostics 07/06/24 04:38 07/06/24 04:38 Labs: 06/29/24 17:26 Blood Blood Culture - Final 06/29/24 17:20 Blood Blood Culture - Final 06/26/24 23:16 Blood Blood Culture - Final 06/26/24 21:38 Blood Blood Culture - Final Laboratory WBC 18.1 X10^3/uL (3.6-10.0) H 07/06/24 04:38 RBC 3.58 X10^6/uL (4.7-6.0) L 07/06/24 04:38 Hgb 9.9 g/dL (13.5-18.0) L 07/06/24 04:38 Hct 30.1 % (42.0-54.0) L 07/06/24 04:38 MCV 84.1 fL (80.0-100.0) 07/06/24 04:38 MCH 27.5 pg (27.0-34.0) 07/06/24 04:38 MCHC 32.7 g/dL (33.0-35.0) L 07/06/24 04:38 RDW 15.7 % (11.6-16.5) 07/06/24 04:38 Plt Count 360 X10^3/uL (150.0-450.0) 07/06/24 04:38 Plt Count Comment Adequate (ADEQUATE) 07/04/24 04:46 MPV 7.2 fL (7.4-11.0) L 07/06/24 04:38 Neut % (Auto) 82.3 % (42.0-75.0) H 07/06/24 04:38 Lymph % (Auto) 11.2 % (21.0-51.0) L 07/06/24 04:38 [place] % (Auto) 5.8 % (0.0-13.0) 07/06/24 04:38 Eos % (Auto) 0.5 % (0.9-2.9) L 07/06/24 04:38 Baso % (Auto) 0.2 % (0.2-1.0) 07/06/24 04:38 Neut # (Auto) 14.9 x10^3/uL (2.2-4.8) H 07/06/24 04:38 Lymph # (Auto) 2.0 X10^3/uL (1.3-2.9) 07/06/24 04:38 [place] # (Auto) 1.1 x10^3/uL (0.3-0.8) H 07/06/24 04:38 Eos # (Auto) 0.1 x10^3/uL (0.0-0.2) 07/06/24 04:38 Baso # (Auto) 0.0 X10^3/uL (0.0-0.1) 07/06/24 04:38 Absolute Nucleated RBC 0.0 /100WBC 07/06/24 04:38 Total Counted 100 07/04/24 04:46 Neutrophils % (Manual) 85 % (39-76) H 07/04/24 04:46 Band Neutrophils % 1 % (0-10) 07/02/24 04:11 Lymphocytes % (Manual) 8 % (13-43) L 07/04/24 04:46 Monocytes % (Manual) 5 % (4-9) 07/04/24 04:46 Eosinophils % (Manual) 2 % (0-6) 07/04/24 04:46 Plt Morphology Comment Normal (NORMAL) 07/04/24 04:46 RBC Morphology Normal (NORMAL) 07/04/24 04:46 Hypochromasia Slight A 06/27/24 04:13 Anisocytosis Slight A 06/30/24 04:03 Sodium 133 mmol/L (136-145) L 07/06/24 04:38 Corrected Sodium 137 mmol/L (136-145) 07/06/24 04:38 Potassium 3.2 mmol/L (3.5-5.1) L 07/06/24 04:38 Chloride 99 mmol/L (98-107) 07/06/24 04:38 Carbon Dioxide 29.9 mmol/L (21-32) 07/06/24 04:38 BUN 2 mg/dL (7-18) L 07/06/24 04:38 Creatinine 0.85 mg/dL (0.70-1.30) 07/06/24 04:38 Est GFR (MDRD) Af Amer > 60 (>60) 07/06/24 04:38 Est GFR (MDRD) Non-Af > 60 (>60) 07/06/24 04:38 Glucose 263 mg/dL (65-99) H 07/06/24 04:38 POC Glucose (mg/dL) 250 mg/dL (65-99) H 07/06/24 05:19 Lactic Acid 1.9 mmol/L (0.4-2.0) 06/27/24 01:15 Calcium 7.8 mg/dL (8.5-10.1) L 07/06/24 04:38 Corrected Calcium 9.2 mg/dL (8.5-10.1) 07/06/24 04:38 Magnesium 1.8 mg/dL (2.0-2.9) L 07/06/24 04:38 Total Bilirubin 0.60 mg/dL (0.2-1.0) 07/06/24 04:38 AST 11 Units/L (15-37) L 07/06/24 04:38 ALT 7 Units/L (12-78) L 07/06/24 04:38 Alkaline Phosphatase 39 Units/L (46-116) L 07/06/24 04:38 Total Protein 5.3 g/dL (6.4-8.2) L 07/06/24 04:38 Albumin 2.3 g/dL (3.4-5.0) L 07/06/24 04:38 Globulin 3.0 g/dL (2.5-4.5) 07/06/24 04:38 Albumin/Globulin Ratio 0.8 Ratio (1.1-2.1) L 07/06/24 04:38 Amylase 61 Units/L (25-115) 06/26/24 21:38 Lipase 20 Units/L (16-77) 06/26/24 21:38 Specimen Type Clean catch urine 06/27/24 07:48 Urine Color Yellow (YELLOW) 06/27/24 07:48 Urine Appearance Clear (CLEAR) 06/27/24 07:48 Urine pH 5.0 (5.0 - 8.0) 06/27/24 07:48 Ur Specific [place] 1.020 (1.000-1.030) 06/27/24 07:48 Urine Protein 2+ (NEGATIVE) 06/27/24 07:48 Urine Glucose (UA) 2+ (NEGATIVE) 06/27/24 07:48 Urine Ketones Negative (NEGATIVE) 06/27/24 07:48 Urine Blood Negative (NEGATIVE) 06/27/24 07:48 Urine Nitrite Negative (NEGATIVE) 06/27/24 07:48 Urine Bilirubin Negative (NEGATIVE) 06/27/24 07:48 Urine Urobilinogen Normal (NORMAL) 06/27/24 07:48 Ur Leukocyte Esterase Negative (NEGATIVE) 06/27/24 07:48 Urine RBC None seen /HPF (0-3) 06/27/24 07:48 Urine WBC 0-2 /HPF (0-5) 06/27/24 07:48 Ur Squamous Epith Cells Rare /HPF (NEGATIVE) 06/27/24 07:48 Calcium Oxalate Crystal Rare /HPF (NEGATIVE) 06/27/24 07:48 Other Crystals Few /HPF (NEGATIVE) 06/27/24 07:48 Urine Bacteria Negative /HPF (NEGATIVE) 06/27/24 07:48 Ur Culture Indicated? 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 OOB , incentive spirometer , DVT prophylaxis . Liquid diet as tolerated. Same IV antibiotics and anticoagulants, albumin and Lasix.. may start on Plavix and Aspirin . Awaiting final pathology report. 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
--- NOTE | 2024-07-06 16:10 | RAD ---
EXAM:KUB x-ray one viewHISTORY:ABD PAIN -COMPARISON:X-ray 06/30/2024FINDINGS:Small bowel dilation with air is seen. Small bowel loops measure up to 4.3 cm in diameter. There are skin les overlying the abdomen and pelvis. It is uncertain if small bowel dilation is from small-bowel obstruction or ileus. There is likely a tiny amount of air in the right side of the colon.IMPRESSION:Small bowel dilation with air. Appearance could be from small-bowel obstruction or ileus. Continued x-ray follow up is recommended.THIS IS AN ELECTRONICALLY VERIFIED FINAL REPORT07/06/2024 4:00 PM - Electronically signed by Zach Vuong MD
[2024-07-07 05:38] LABS: BLOOD UREA NITROGEN 3 mg/dL (7-18); CALCIUM 7.5 mg/dL (8.5-10.1); CARBON DIOXIDE 27.9 mmol/L (21-32); CHLORIDE 101 mmol/L (98-107); COR NA(FOR HYPERGLY) 138 mmol/L (136-145); CREATININE 0.86 mg/dL (0.70-1.30); GLUCOSE 185 mg/dL (65-99); SODIUM 136 mmol/L (136-145); eGFR NON BLACK RACES > 60 (>60)
[2024-07-07 05:39] LABS: BASOPHILS % (AUTO) 0.3 % (0.2-1.0); EOSINOPHILS # (AUTO) 0.4 x10^3/uL (0.0-0.2); EOSINOPHILS % (AUTO) 2.2 % (0.9-2.9); HEMATOCRIT 26.2 % (42.0-54.0); HEMOGLOBIN 8.6 g/dL (13.5-18.0); LYMPHOCYTES # (AUTO) 2.5 X10^3/uL (1.3-2.9); LYMPHOCYTES % (AUTO) 14.7 % (21.0-51.0); MEAN CORPUSCULAR HEMOGLOBIN 27.8 pg (27.0-34.0); MEAN CORPUSCULAR HGB CONC 32.7 g/dL (33.0-35.0); MEAN PLATELET VOLUME 7.5 fL (7.4-11.0); MONOCYTES # (AUTO) 1.2 x10^3/uL (0.3-0.8); MONOCYTES % (AUTO) 7.2 % (0.0-13.0); NEUTROPHILS # (AUTO) 12.7 x10^3/uL (2.2-4.8); NEUTROPHILS % (AUTO) 75.6 % (42.0-75.0); PLATELET COUNT 326 X10^3/uL (150.0-450.0); RED BLOOD COUNT 3.08 X10^6/uL (4.7-6.0); RED CELL DISTRIBUTION WIDTH 15.6 % (11.6-16.5); WHITE BLOOD COUNT 16.7 X10^3/uL (3.6-10.0)
[2024-07-07 06:03] LABS: ALANINE AMINOTRANSFERASE 7 Units/L (12-78); ALBUMIN 2.3 g/dL (3.4-5.0); ALKALINE PHOSPHATASE 43 Units/L (46-116); ASPARTATE AMINO TRANSFERASE 18 Units/L (15-37); COR CA(FOR HYPOALB) 8.9 mg/dL (8.5-10.1); MAGNESIUM 2.2 mg/dL (2.0-2.9)
[2024-07-07] MEDS: CONSULT PHARMACY - POTASSIUM & MAGNESIUM XX SCH (07:12)
[2024-07-07] MEDS: D5 IV SCH (09:26)
[2024-07-07] MEDS: KCL IV SCH (09:26)
[2024-07-07] MEDS: 1/2 NS IV SCH (09:26)
[2024-07-07] MEDS: MAGNESIUM SULFATE IV SCH (09:26)
--- NOTE | 2024-07-07 11:09 | PCM.PROG ---
Progress Note Progress Note for Day of Date of Exam: 07/07/24 Subjective Subjective: POD#6 s/p laparotomy resection of large perforated sigmoid tumor and partial small bowel resection, partial omentectomy and repair of umbilical hernia. Patient was seen ambulating with assistance and walker. No acute events overnight. N/V has improved. His diet advanced to full liquid. His abdominal pain is well-controlled. Labs/imaging reviewed: WBC 16.7, hemoglobin 8.6, platelets 326, sodium 136, potassium 3.0, creatinine 0.86, glucose 185. Plan: continue ICU monitoring. Follow surgery recommendations. Will change diet to Full liquids. Continue zofran and reglan prn. Monitor MILTON output. Replace electrolytes as per protocol. Continue pain control, Discontinue Zosyn and fl agyl. Continue other home medications. Monitor AM labs/imaging. Past Medical Family Social History Past Med/Fam/Surg Hx: No changes since H&P Allergies: Allergies No Known Drug Allergies Allergy (Unknown, Verified 06/26/24 21:23) Onset Date: 04/16/2012 Review of Systems ROS changes noted: see HPI Vital Signs and I&O's Vital Signs: Vital Signs Temperature 97.7 F Temperature 98.8 F Pulse Rate 109 Pulse Rate 93 Pulse Rate 96 Pulse Rate 93 Pulse Rate 102 Pulse Rate 92 Pulse Rate 89 Pulse Rate 90 Respiratory Rate 19 Respiratory Rate 17 Respiratory Rate 18 Respiratory Rate 15 Respiratory Rate 17 Respiratory Rate 15 Respiratory Rate 14 Respiratory Rate 24 Blood Pressure 111/56 Blood Pressure 150/78 Blood Pressure 141/67 Blood Pressure 129/76 Blood Pressure 145/75 Blood Pressure 137/71 Blood Pressure 149/73 O2 Sat by Pulse Oximetry 95 O2 Sat by Pulse Oximetry 95 O2 Sat by Pulse Oximetry 94 O2 Sat by Pulse Oximetry 96 O2 Sat by Pulse Oximetry 94 O2 Sat by Pulse Oximetry 95 O2 Sat by Pulse Oximetry 94 O2 Sat by Pulse Oximetry 94 O2 Sat by Pulse Oximetry 90 Intake and Output: Intake & Output 07/04/24 07/05/24 07/06/24 07/07/24 23:59 23:59 23:59 23:59 Intake Total 4965 / 4965 3281 / 3281 2056 / 2056 1578 / 1578 Output Total 2735 / 2735 1130 / 1130 590 / 590 500 / 500 Balance 2230 / 2230 2151 / 2151 1466 / 1466 1078 / 1078 Physical Exam Oriented: Normal Eyes: Normal Nose: Normal Throat: Normal Respiratory: Normal Cardiovascular: Normal Auscultation: Bowel Sounds: Normal Tenderness: Mild and Other (Soft abdomen with only mild diffuse tenderness, incision is clean, no wound infection.) Skin: Normal Musculoskeletal: Normal Psychiatric: Normal Mood Description: Calm Affect: Normal Speech Pattern: Clear and Appropriate Laboratory and Diagnostics 07/07/24 04:45 07/07/24 04:45 Labs: 06/29/24 17:26 Blood Blood Culture - Final 06/29/24 17:20 Blood Blood Culture - Final 06/26/24 23:16 Blood Blood Culture - Final 06/26/24 21:38 Blood Blood Culture - Final Laboratory WBC 16.7 X10^3/uL (3.6-10.0) H 07/07/24 04:45 RBC 3.08 X10^6/uL (4.7-6.0) L 07/07/24 04:45 Hgb 8.6 g/dL (13.5-18.0) L 07/07/24 04:45 Hct 26.2 % (42.0-54.0) L 07/07/24 04:45 MCV 85.0 fL (80.0-100.0) 07/07/24 04:45 MCH 27.8 pg (27.0-34.0) 07/07/24 04:45 MCHC 32.7 g/dL (33.0-35.0) L 07/07/24 04:45 RDW 15.6 % (11.6-16.5) 07/07/24 04:45 Plt Count 326 X10^3/uL (150.0-450.0) 07/07/24 04:45 Plt Count Comment Adequate (ADEQUATE) 07/04/24 04:46 MPV 7.5 fL (7.4-11.0) 07/07/24 04:45 Neut % (Auto) 75.6 % (42.0-75.0) H 07/07/24 04:45 Lymph % (Auto) 14.7 % (21.0-51.0) L 07/07/24 04:45 [place] % (Auto) 7.2 % (0.0-13.0) 07/07/24 04:45 Eos % (Auto) 2.2 % (0.9-2.9) 07/07/24 04:45 Baso % (Auto) 0.3 % (0.2-1.0) 07/07/24 04:45 Neut # (Auto) 12.7 x10^3/uL (2.2-4.8) H 07/07/24 04:45 Lymph # (Auto) 2.5 X10^3/uL (1.3-2.9) 07/07/24 04:45 [place] # (Auto) 1.2 x10^3/uL (0.3-0.8) H 07/07/24 04:45 Eos # (Auto) 0.4 x10^3/uL (0.0-0.2) H 07/07/24 04:45 Baso # (Auto) 0.0 X10^3/uL (0.0-0.1) 07/07/24 04:45 Absolute Nucleated RBC 0.1 /100WBC 07/07/24 04:45 Total Counted 100 07/04/24 04:46 Neutrophils % (Manual) 85 % (39-76) H 07/04/24 04:46 Band Neutrophils % 1 % (0-10) 07/02/24 04:11 Lymphocytes % (Manual) 8 % (13-43) L 07/04/24 04:46 Monocytes % (Manual) 5 % (4-9) 07/04/24 04:46 Eosinophils % (Manual) 2 % (0-6) 07/04/24 04:46 Plt Morphology Comment Normal (NORMAL) 07/04/24 04:46 RBC Morphology Normal (NORMAL) 07/04/24 04:46 Hypochromasia Slight A 06/27/24 04:13 Anisocytosis Slight A 06/30/24 04:03 Sodium 136 mmol/L (136-145) 07/07/24 04:45 Corrected Sodium 138 mmol/L (136-145) 07/07/24 04:45 Potassium 3.0 mmol/L (3.5-5.1) L 07/07/24 04:45 Chloride 101 mmol/L (98-107) 07/07/24 04:45 Carbon Dioxide 27.9 mmol/L (21-32) 07/07/24 04:45 BUN 3 mg/dL (7-18) L 07/07/24 04:45 Creatinine 0.86 mg/dL (0.70-1.30) 07/07/24 04:45 Est GFR (MDRD) Af Amer > 60 (>60) 07/07/24 04:45 Est GFR (MDRD) Non-Af > 60 (>60) 07/07/24 04:45 Glucose 185 mg/dL (65-99) H 07/07/24 04:45 POC Glucose (mg/dL) 175 mg/dL (65-99) H 07/07/24 06:46 Lactic Acid 1.9 mmol/L (0.4-2.0) 06/27/24 01:15 Calcium 7.5 mg/dL (8.5-10.1) L 07/07/24 04:45 Corrected Calcium 8.9 mg/dL (8.5-10.1) 07/07/24 04:45 Magnesium 2.2 mg/dL (2.0-2.9) 07/07/24 04:45 Total Bilirubin 0.50 mg/dL (0.2-1.0) 07/07/24 04:45 AST 18 Units/L (15-37) 07/07/24 04:45 ALT 7 Units/L (12-78) L 07/07/24 04:45 Alkaline Phosphatase 43 Units/L (46-116) L 07/07/24 04:45 Total Protein 5.0 g/dL (6.4-8.2) L 07/07/24 04:45 Albumin 2.3 g/dL (3.4-5.0) L 07/07/24 04:45 Globulin 2.7 g/dL (2.5-4.5) 07/07/24 04:45 Albumin/Globulin Ratio 0.9 Ratio (1.1-2.1) L 07/07/24 04:45 Amylase 61 Units/L (25-115) 06/26/24 21:38 Lipase 20 Units/L (16-77) 06/26/24 21:38 Specimen Type Clean catch urine 06/27/24 07:48 Urine Color Yellow (YELLOW) 06/27/24 07:48 Urine Appearance Clear (CLEAR) 06/27/24 07:48 Urine pH 5.0 (5.0 - 8.0) 06/27/24 07:48 Ur Specific [place] 1.020 (1.000-1.030) 06/27/24 07:48 Urine Protein 2+ (NEGATIVE) 06/27/24 07:48 Urine Glucose (UA) 2+ (NEGATIVE) 06/27/24 07:48 Urine Ketones Negative (NEGATIVE) 06/27/24 07:48 Urine Blood Negative (NEGATIVE) 06/27/24 07:48 Urine Nitrite Negative (NEGATIVE) 06/27/24 07:48 Urine Bilirubin Negative (NEGATIVE) 06/27/24 07:48 Urine Urobilinogen Normal (NORMAL) 06/27/24 07:48 Ur Leukocyte Esterase Negative (NEGATIVE) 06/27/24 07:48 Urine RBC None seen /HPF (0-3) 06/27/24 07:48 Urine WBC 0-2 /HPF (0-5) 06/27/24 07:48 Ur Squamous Epith Cells Rare /HPF (NEGATIVE) 06/27/24 07:48 Calcium Oxalate Crystal Rare /HPF (NEGATIVE) 06/27/24 07:48 Other Crystals Few /HPF (NEGATIVE) 06/27/24 07:48 Urine Bacteria Negative /HPF (NEGATIVE) 06/27/24 07:48 Ur Culture Indicated? No/not indicated 06/27/24 07:48 SARS-CoV-2 (PCR) Negative (NEGATIVE) 06/30/24 10:12 Influenza Type A (PCR) Negative (NEGATIVE) 06/30/24 10:12 Influenza Type B (PCR) Negative (NEGATIVE) 06/30/24 10:12 RSV (PCR) Negative (NEGATIVE) 06/30/24 10:12 Blood Type O POSITIVE 06/29/24 17:20 Antibody Screen Negative 06/29/24 17:20 Crossmatch See Detail 06/29/24 17:20 Plan (1) Post-op pain: Status: Acute (2) Cancer of sigmoid colon: Status: Acute (3) Anemia: Status: Acute Qualifiers: Anemia type: unspecified type Qualified Code(s): D64.9 - Anemia, unspe cified (4) History of CVA (cerebrovascular accident): Status: Acute (5) TED (acute kidney injury): Status: Acute (6) Hypomagnesemia: Status: Acute (7) Hypokalemia: Status: Acute
--- NOTE | 2024-07-07 17:07 | DR.PROGNOT ---
HOSPITAL PROGRESS NOTE Progress Note for Day of: Progress Note Date: 07/07/24 Chief Complaint Chief Complaint: PO day 6. 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 Awake , alert, and stable . No further nausea or vomiting, tolerating oral intake better today and his diet was advanced to full liquid. White count is 16.7 and hemoglobin 8.6. Afebrile. Abdomen is soft with good bowel sounds and no wound infection. Past Medical Family Social History Past Med/Fam/Surg Hx: No changes since H&P Allergies: Allergies No Known Drug Allergies Allergy (Unknown, Verified 06/26/24 21:23) Onset Date: 04/16/2012 Review Of Systems Changes in ROS: see HPI Vital Signs Vital Signs: Vital Signs Temperature 98.4 F Temperature 98.7 F Pulse Rate 93 Pulse Rate 103 Pulse Rate 103 Pulse Rate 115 Pulse Rate 105 Pulse Rate 109 Respiratory Rate 15 Respiratory Rate 15 Respiratory Rate 20 Respiratory Rate 23 Respiratory Rate 19 Respiratory Rate 19 Blood Pressure 99/69 Blood Pressure 113/58 Blood Pressure 116/58 Blood Pressure 117/69 Blood Pressure 111/56 O2 Sat by Pulse Oximetry 94 O2 Sat by Pulse Oximetry 93 O2 Sat by Pulse Oximetry 97 O2 Sat by Pulse Oximetry 95 O2 Sat by Pulse Oximetry 95 Physical Exam Oriented: Normal Eyes: Normal Nose: Normal Throat: Normal Respiratory: Normal Cardiovascular: Normal GI:Auscultation: Normal GI:Palpation: Normal GI: Tenderness: Mild and Other (Soft abdomen with only mild diffuse tenderness, incision is clean, no wound infection.) Skin: Normal Musculoskeletal: Normal Psychiatric: Normal Mood Description: Calm Affect: Normal Speech Pattern: Clear and Appropriate Laboratory and Diagnostics 07/07/24 04:45 07/07/24 04:45 Labs: 06/29/24 17:26 Blood Blood Culture - Final 06/29/24 17:20 Blood Blood Culture - Final 06/26/24 23:16 Blood Blood Culture - Final 06/26/24 21:38 Blood Blood Culture - Final Laboratory WBC 16.7 X10^3/uL (3.6-10.0) H 07/07/24 04:45 RBC 3.08 X10^6/uL (4.7-6.0) L 07/07/24 04:45 Hgb 8.6 g/dL (13.5-18.0) L 07/07/24 04:45 Hct 26.2 % (42.0-54.0) L 07/07/24 04:45 MCV 85.0 fL (80.0-100.0) 07/07/24 04:45 MCH 27.8 pg (27.0-34.0) 07/07/24 04:45 MCHC 32.7 g/dL (33.0-35.0) L 07/07/24 04:45 RDW 15.6 % (11.6-16.5) 07/07/24 04:45 Plt Count 326 X10^3/uL (150.0-450.0) 07/07/24 04:45 Plt Count Comment Adequate (ADEQUATE) 07/04/24 04:46 MPV 7.5 fL (7.4-11.0) 07/07/24 04:45 Neut % (Auto) 75.6 % (42.0-75.0) H 07/07/24 04:45 Lymph % (Auto) 14.7 % (21.0-51.0) L 07/07/24 04:45 [place] % (Auto) 7.2 % (0.0-13.0) 07/07/24 04:45 Eos % (Auto) 2.2 % (0.9-2.9) 07/07/24 04:45 Baso % (Auto) 0.3 % (0.2-1.0) 07/07/24 04:45 Neut # (Auto) 12.7 x10^3/uL (2.2-4.8) H 07/07/24 04:45 Lymph # (Auto) 2.5 X10^3/uL (1.3-2.9) 07/07/24 04:45 [place] # (Auto) 1.2 x10^3/uL (0.3-0.8) H 07/07/24 04:45 Eos # (Auto) 0.4 x10^3/uL (0.0-0.2) H 07/07/24 04:45 Baso # (Auto) 0.0 X10^3/uL (0.0-0.1) 07/07/24 04:45 Absolute Nucleated RBC 0.1 /100WBC 07/07/24 04:45 Total Counted 100 07/04/24 04:46 Neutrophils % (Manual) 85 % (39-76) H 07/04/24 04:46 Band Neutrophils % 1 % (0-10) 07/02/24 04:11 Lymphocytes % (Manual) 8 % (13-43) L 07/04/24 04:46 Monocytes % (Manual) 5 % (4-9) 07/04/24 04:46 Eosinophils % (Manual) 2 % (0-6) 07/04/24 04:46 Plt Morphology Comment Normal (NORMAL) 07/04/24 04:46 RBC Morphology Normal (NORMAL) 07/04/24 04:46 Hypochromasia Slight A 06/27/24 04:13 Anisocytosis Slight A 06/30/24 04:03 Sodium 136 mmol/L (136-145) 07/07/24 04:45 Corrected Sodium 138 mmol/L (136-145) 07/07/24 04:45 Potassium 3.0 mmol/L (3.5-5.1) L 07/07/24 04:45 Chloride 101 mmol/L (98-107) 07/07/24 04:45 Carbon Dioxide 27.9 mmol/L (21-32) 07/07/24 04:45 BUN 3 mg/dL (7-18) L 07/07/24 04:45 Creatinine 0.86 mg/dL (0.70-1.30) 07/07/24 04:45 Est GFR (MDRD) Af Amer > 60 (>60) 07/07/24 04:45 Est GFR (MDRD) Non-Af > 60 (>60) 07/07/24 04:45 Glucose 185 mg/dL (65-99) H 07/07/24 04:45 POC Glucose (mg/dL) 228 mg/dL (65-99) H 07/07/24 16:30 Lactic Acid 1.9 mmol/L (0.4-2.0) 06/27/24 01:15 Calcium 7.5 mg/dL (8.5-10.1) L 07/07/24 04:45 Corrected Calcium 8.9 mg/dL (8.5-10.1) 07/07/24 04:45 Magnesium 2.2 mg/dL (2.0-2.9) 07/07/24 04:45 Total Bilirubin 0.50 mg/dL (0.2-1.0) 07/07/24 04:45 AST 18 Units/L (15-37) 07/07/24 04:45 ALT 7 Units/L (12-78) L 07/07/24 04:45 Alkaline Phosphatase 43 Units/L (46-116) L 07/07/24 04:45 Total Protein 5.0 g/dL (6.4-8.2) L 07/07/24 04:45 Albumin 2.3 g/dL (3.4-5.0) L 07/07/24 04:45 Globulin 2.7 g/dL (2.5-4.5) 07/07/24 04:45 Albumin/Globulin Ratio 0.9 Ratio (1.1-2.1) L 07/07/24 04:45 Amylase 61 Units/L (25-115) 06/26/24 21:38 Lipase 20 Units/L (16-77) 06/26/24 21:38 Specimen Type Clean catch urine 06/27/24 07:48 Urine Color Yellow (YELLOW) 06/27/24 07:48 Urine Appearance Clear (CLEAR) 06/27/24 07:48 Urine pH 5.0 (5.0 - 8.0) 06/27/24 07:48 Ur Specific [place] 1.020 (1.000-1.030) 06/27/24 07:48 Urine Protein 2+ (NEGATIVE) 06/27/24 07:48 Urine Glucose (UA) 2+ (NEGATIVE) 06/27/24 07:48 Urine Ketones Negative (NEGATIVE) 06/27/24 07:48 Urine Blood Negative (NEGATIVE) 06/27/24 07:48 Urine Nitrite Negative (NEGATIVE) 06/27/24 07:48 Urine Bilirubin Negative (NEGATIVE) 06/27/24 07:48 Urine Urobilinogen Normal (NORMAL) 06/27/24 07:48 Ur Leukocyte Esterase Negative (NEGATIVE) 06/27/24 07:48 Urine RBC None seen /HPF (0-3) 06/27/24 07:48 Urine WBC 0-2 /HPF (0-5) 06/27/24 07:48 Ur Squamous Epith Cells Rare /HPF (NEGATIVE) 06/27/24 07:48 Calcium Oxalate Crystal Rare /HPF (NEGATIVE) 06/27/24 07:48 Other Crystals Few /HPF (NEGATIVE) 06/27/24 07:48 Urine Bacteria Negative /HPF (NEGATIVE) 06/27/24 07:48 Ur Culture Indicated? 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 OOB , incentive spirometer , DVT prophylaxis . Full liquid liquid diet as tolerated. DC antibiotics and anticoagulants, may start on Plavix and Aspirin . Awaiting final pathology report. If tolerating diet the patient could be discharged and will follow him in 1 week. 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
[2024-07-08 05:59] LABS: BASOPHILS # (AUTO) 0.1 X10^3/uL (0.0-0.1); BASOPHILS % (AUTO) 0.6 % (0.2-1.0); EOSINOPHILS # (AUTO) 0.3 x10^3/uL (0.0-0.2); EOSINOPHILS % (AUTO) 1.6 % (0.9-2.9); HEMATOCRIT 25.6 % (42.0-54.0); HEMOGLOBIN 8.3 g/dL (13.5-18.0); LYMPHOCYTES # (AUTO) 2.5 X10^3/uL (1.3-2.9); LYMPHOCYTES % (AUTO) 13.9 % (21.0-51.0); MEAN CORPUSCULAR HEMOGLOBIN 27.4 pg (27.0-34.0); MEAN CORPUSCULAR HGB CONC 32.3 g/dL (33.0-35.0); MEAN CORPUSCULAR VOLUME 84.7 fL (80.0-100.0); MEAN PLATELET VOLUME 7.1 fL (7.4-11.0); MONOCYTES # (AUTO) 1.2 x10^3/uL (0.3-0.8); MONOCYTES % (AUTO) 6.4 % (0.0-13.0); NEUTROPHILS % (AUTO) 77.5 % (42.0-75.0); PLATELET COUNT 378 X10^3/uL (150.0-450.0); RED BLOOD COUNT 3.02 X10^6/uL (4.7-6.0); RED CELL DISTRIBUTION WIDTH 15.6 % (11.6-16.5); WHITE BLOOD COUNT 18.1 X10^3/uL (3.6-10.0)
[2024-07-08 06:13] LABS: ALANINE AMINOTRANSFERASE 13 Units/L (12-78); ALBUMIN 2.4 g/dL (3.4-5.0); ALKALINE PHOSPHATASE 46 Units/L (46-116); ASPARTATE AMINO TRANSFERASE 31 Units/L (15-37); BLOOD UREA NITROGEN 1 mg/dL (7-18); CALCIUM 7.6 mg/dL (8.5-10.1); CARBON DIOXIDE 29.4 mmol/L (21-32); CHLORIDE 104 mmol/L (98-107); COR CA(FOR HYPOALB) 8.9 mg/dL (8.5-10.1); COR NA(FOR HYPERGLY) 141 mmol/L (136-145); CREATININE 0.83 mg/dL (0.70-1.30); GLUCOSE 173 mg/dL (65-99); POTASSIUM 3.6 mmol/L (3.5-5.1); SODIUM 139 mmol/L (136-145); TOTAL PROTEIN 5.1 g/dL (6.4-8.2); eGFR NON BLACK RACES > 60 (>60)
[2024-07-08 08:59] VITALS: BP 128/65; PULSE 100; RESP 23; TEMP 98.4; O2SAT 98
--- NOTE | 2024-07-13 08:56 | W.DIS.FURT ---
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 On day of discharge patient was seen ambulating with assistance and walker. No acute events overnight. N/V has improved. His diet advanced. His abdominal pain is well-controlled. Pt discharged in stable condition. Instructed to follow up with pcp and general surgery in 1 week. Vital Signs: Vital Signs (72 hours) 07/05/24 13:39 07/05/24 10:00 07/05/24 11:00 Temperature 98.4 F Pulse Rate 80 78 Respiratory Rate 20 17 21 Blood Pressure 121/58 133/58 O2 Sat by Pulse Oximetry 92 L 93 L Oxygen Delivery Method Room Air Room Air Oxygen Flow Rate FIO2% 07/05/24 12:00 07/05/24 13:00 07/05/24 14:00 Temperature Pulse Rate 82 88 95 H Respiratory Rate 19 17 21 Blood Pressure 120/60 138/63 132/65 O2 Sat by Pulse Oximetry 96 97 96 Oxygen Delivery Method Room Air Room Air Room Air Oxygen Flow Rate FIO2% 07/05/24 14:38 07/05/24 15:00 07/05/24 16:00 Temperature 98.5 F Pulse Rate 83 81 Respiratory Rate 24 25 H 14 Blood Pressure 129/66 135/71 O2 Sat by Pulse Oximetry 95 96 Oxygen Delivery Method Room Air Room Air Oxygen Flow Rate FIO2% 07/05/24 16:34 07/05/24 16:59 07/05/24 10:00 Temperature Pulse Rate 86 81 Respiratory Rate 20 19 20 Blood Pressure 139/75 O2 Sat by Pulse Oximetry 94 L 95 Oxygen Delivery Method Room Air Oxygen Flow Rate FIO2% 07/05/24 10:06 07/05/24 10:06 07/05/24 11:00 Temperature Pulse Rate 77 79 Respiratory Rate 19 14 Blood Pressure 121/58 O2 Sat by Pulse Oximetry 94 L 92 L Oxygen Delivery Method Oxygen Flow Rate FIO2% 07/05/24 11:06 07/05/24 11:06 07/05/24 11:06 Temperature Pulse Rate Respiratory Rate Blood Pressure 133/58 133/58 133/58 O2 Sat by Pulse Oximetry Oxygen Delivery Method Oxygen Flow Rate FIO2% 07/05/24 11:06 07/05/24 11:43 07/05/24 11:43 Temperature Pulse Rate 78 79 Respiratory Rate 20 13 Blood Pressure 133/69 O2 Sat by Pulse Oximetry 96 95 Oxygen Delivery Method Oxygen Flow Rate FIO2% 07/05/24 12:00 07/05/24 12:00 07/05/24 13:00 Temperature Pulse Rate 78 Respiratory Rate 13 Blood Pressure 124/63 138/63 O2 Sat by Pulse Oximetry 93 L Oxygen Delivery Method Oxygen Flow Rate FIO2% 07/05/24 13:00 07/05/24 14:05 07/05/24 14:12 Temperature Pulse Rate 78 101 H 91 H Respiratory Rate 16 18 Blood Pressure O2 Sat by Pulse Oximetry 94 L 96 95 Oxygen Delivery Method Oxygen Flow Rate FIO2% 07/05/24 14:12 07/05/24 15:00 07/05/24 15:00 Temperature Pulse Rate 83 Respiratory Rate 33 H Blood Pressure 132/65 129/66 O2 Sat by Pulse Oximetry 95 Oxygen Delivery Method Oxygen Flow Rate FIO2% 07/05/24 16:00 07/05/24 16:00 07/05/24 17:00 Temperature Pulse Rate 81 85 Respiratory Rate 16 26 H Blood Pressure 135/71 O2 Sat by Pulse Oximetry 96 94 L Oxygen Delivery Method Oxygen Flow Rate FIO2% 07/05/24 17:00 07/05/24 18:00 07/05/24 18:00 Temperature Pulse Rate Respiratory Rate Blood Pressure 139/75 137/65 137/65 O2 Sat by Pulse Oximetry Oxygen Delivery Method Oxygen Flow Rate FIO2% 07/05/24 18:00 07/05/24 17:04 07/05/24 19:47 Temperature Pulse Rate 86 Respiratory Rate 17 24 Blood Pressure O2 Sat by Pulse Oximetry 95 Oxygen Delivery Method Room Air Oxygen Flow Rate FIO2% 07/05/24 19:47 07/05/24 21:36 07/06/24 00:40 Temperature Pulse Rate 91 H Respiratory Rate 19 17 Blood Pressure O2 Sat by Pulse Oximetry 94 L Oxygen Delivery Method Oxygen Flow Rate FIO2% 07/05/24 19:00 07/05/24 19:00 07/05/24 20:00 Temperature 97.8 F Pulse Rate 86 90 Respiratory Rate 21 24 Blood Pressure 135/78 142/76 O2 Sat by Pulse Oximetry 96 96 Oxygen Delivery Method Room Air Room Air Room Air Oxygen Flow Rate FIO2% 07/05/24 21:00 07/05/24 22:00 07/05/24 22:36 Temperature Pulse Rate 94 H 92 H Respiratory Rate 21 21 19 Blood Pressure 142/75 143/65 O2 Sat by Pulse Oximetry 96 96 Oxygen Delivery Method Room Air Room Air Oxygen Flow Rate FIO2% 07/05/24 23:00 07/06/24 00:00 07/06/24 01:00 Temperature 98.2 F Pulse Rate 92 H 88 92 H Respiratory Rate 19 25 H 12 Blood Pressure 128/67 130/71 139/67 O2 Sat by Pulse Oximetry 95 97 96 Oxygen Delivery Method Room Air Room Air Room Air Oxygen Flow Rate FIO2% 07/06/24 01:10 07/06/24 02:00 07/06/24 03:00 Temperature Pulse Rate 88 99 H Respiratory Rate 17 14 22 Blood Pressure 138/74 149/76 O2 Sat by Pulse Oximetry 96 96 Oxygen Delivery Method Room Air Room Air Oxygen Flow Rate FIO2% 07/06/24 04:00 07/06/24 05:00 07/06/24 06:00 Temperature 97.7 F Pulse Rate 89 108 H 103 H Respiratory Rate 12 21 16 Blood Pressure 139/71 135/76 151/74 O2 Sat by Pulse Oximetry 97 95 97 Oxygen Delivery Method Room Air Room Air Room Air Oxygen Flow Rate FIO2% 07/06/24 07:00 07/06/24 09:45 07/06/24 09:45 Temperature Pulse Rate 98 H 105 H Respiratory Rate 16 Blood Pressure 139/75 O2 Sat by Pulse Oximetry 96 95 Oxygen Delivery Method Room Air Oxygen Flow Rate FIO2% 21 07/06/24 08:00 07/06/24 07:00 07/06/24 12:04 Temperature 98.4 F 98.4 F Pulse Rate 102 H 107 H Respiratory Rate 20 17 Blood Pressure 149/86 122/71 O2 Sat by Pulse Oximetry 96 95 Oxygen Delivery Method Room Air Oxygen Flow Rate FIO2% 07/06/24 13:00 07/06/24 14:00 07/06/24 15:00 Temperature Pulse Rate 108 H 117 H 111 H Respiratory Rate 18 22 22 Blood Pressure 128/61 113/75 130/69 O2 Sat by Pulse Oximetry 95 97 94 L Oxygen Delivery Method Oxygen Flow Rate FIO2% 07/06/24 16:00 07/06/24 17:00 07/06/24 18:00 Temperature 97.7 F Pulse Rate 105 H 102 H 104 H Respiratory Rate 20 19 22 Blood Pressure 126/64 130/67 129/69 O2 Sat by Pulse Oximetry 94 L 93 L 95 Oxygen Delivery Method Oxygen Flow Rate FIO2% 07/06/24 19:00 07/06/24 18:00 07/06/24 18:30 Temperature Pulse Rate 104 H 103 H Respiratory Rate 21 22 Blood Pressure O2 Sat by Pulse Oximetry 95 94 L Oxygen Delivery Method Room Air Oxygen Flow Rate FIO2% 07/06/24 19:00 07/06/24 19:00 07/06/24 19:30 Temperature Pulse Rate 105 H 110 H Respiratory Rate 22 23 Blood Pressure 139/83 O2 Sat by Pulse Oximetry 93 L 95 Oxygen Delivery Method Oxygen Flow Rate FIO2% 07/06/24 20:00 07/06/24 20:10 07/06/24 20:10 Temperature Pulse Rate 103 H 104 H Respiratory Rate 27 H 20 Blood Pressure 145/70 O2 Sat by Pulse Oximetry 94 L 95 Oxygen Delivery Method Oxygen Flow Rate FIO2% 07/06/24 20:30 07/06/24 21:00 07/06/24 21:00 Temperature Pulse Rate 103 H 98 H Respiratory Rate 20 21 Blood Pressure 140/66 O2 Sat by Pulse Oximetry 94 L 95 Oxygen Delivery Method Oxygen Flow Rate FIO2% 07/06/24 21:30 07/06/24 22:00 07/06/24 22:00 Temperature Pulse Rate 127 H 100 H Respiratory Rate 19 Blood Pressure 137/64 O2 Sat by Pulse Oximetry 96 95 Oxygen Delivery Method Oxygen Flow Rate FIO2% 07/06/24 22:30 07/06/24 23:00 07/06/24 23:00 Temperature Pulse Rate 101 H 100 H Respiratory Rate 23 17 Blood Pressure 122/59 O2 Sat by Pulse Oximetry 95 95 Oxygen Delivery Method Room Air Oxygen Flow Rate FIO2% 07/06/24 23:18 07/07/24 00:00 07/07/24 00:00 Temperature Pulse Rate 98 H Respiratory Rate 19 16 Blood Pressure 121/66 O2 Sat by Pulse Oximetry 94 L Oxygen Delivery Method Room Air Oxygen Flow Rate FIO2% 07/06/24 23:48 07/07/24 01:00 07/07/24 01:00 Temperature Pulse Rate 96 H Respiratory Rate 16 14 Blood Pressure 124/59 O2 Sat by Pulse Oximetry 93 L Oxygen Delivery Method Oxygen Flow Rate FIO2% 07/07/24 02:00 07/07/24 02:00 07/07/24 03:00 Temperature Pulse Rate 98 H 100 H Respiratory Rate 19 19 Blood Pressure 128/60 O2 Sat by Pulse Oximetry 93 L 95 Oxygen Delivery Method Oxygen Flow Rate FIO2% 07/07/24 03:00 07/07/24 04:00 07/07/24 04:01 Temperature Pulse Rate 90 89 Respiratory Rate 24 14 Blood Pressure 131/65 O2 Sat by Pulse Oximetry 90 L 94 L Oxygen Delivery Method Oxygen Flow Rate FIO2% 07/07/24 04:01 07/07/24 05:00 07/07/24 05:00 Temperature Pulse Rate 92 H Respiratory Rate 15 Blood Pressure 149/73 137/71 O2 Sat by Pulse Oximetry 94 L Oxygen Delivery Method Oxygen Flow Rate FIO2% 07/06/24 19:00 07/07/24 00:00 07/07/24 04:00 Temperature 99.0 F 97.9 F 98.8 F Pulse Rate Respiratory Rate Blood Pressure O2 Sat by Pulse Oximetry Oxygen Delivery Method Oxygen Flow Rate FIO2% 07/06/24 20:05 07/07/24 06:00 07/07/24 06:00 Temperature Pulse Rate 102 H Respiratory Rate 17 Blood Pressure 145/75 O2 Sat by Pulse Oximetry 95 Oxygen Delivery Method Room Air Oxygen Flow Rate FIO2% 07/07/24 07:00 07/07/24 07:00 07/07/24 08:01 Temperature Pulse Rate 93 H Respiratory Rate 15 Blood Pressure 129/76 O2 Sat by Pulse Oximetry 94 L Oxygen Delivery Method Room Air Oxygen Flow Rate FIO2% 07/07/24 08:02 07/07/24 08:32 07/07/24 08:32 Temperature 97.7 F Pulse Rate 96 H Respiratory Rate 18 Blood Pressure 141/67 O2 Sat by Pulse Oximetry 96 94 L Oxygen Delivery Method Oxygen Flow Rate FIO2% 07/07/24 09:00 07/07/24 09:00 07/07/24 07:00 Temperature Pulse Rate 93 H Respiratory Rate 17 Blood Pressure 150/78 O2 Sat by Pulse Oximetry 95 Oxygen Delivery Method Room Air Oxygen Flow Rate FIO2% 07/07/24 10:00 07/07/24 10:00 07/07/24 11:00 Temperature Pulse Rate 109 H Respiratory Rate 19 Blood Pressure 111/56 117/69 O2 Sat by Pulse Oximetry 95 Oxygen Delivery Method Oxygen Flow Rate FIO2% 07/07/24 11:00 07/07/24 11:46 07/07/24 11:46 Temperature Pulse Rate 105 H 115 H Respiratory Rate 19 23 Blood Pressure 116/58 O2 Sat by Pulse Oximetry 95 97 Oxygen Delivery Method Oxygen Flow Rate FIO2% 07/07/24 12:00 07/07/24 12:00 07/07/24 15:45 Temperature 98.7 F Pulse Rate 103 H Respiratory Rate 20 Blood Pressure 113/58 99/69 O2 Sat by Pulse Oximetry 93 L Oxygen Delivery Method Oxygen Flow Rate FIO2% 07/07/24 15:45 07/07/24 16:00 07/07/24 19:00 Temperature 98.4 F Pulse Rate 103 H 93 H Respiratory Rate 15 15 Blood Pressure O2 Sat by Pulse Oximetry 94 L Oxygen Delivery Method Room Air Oxygen Flow Rate FIO2% 07/07/24 17:00 07/07/24 18:00 07/07/24 19:00 Temperature Pulse Rate 96 H 100 H 97 H Respiratory Rate 20 20 19 Blood Pressure O2 Sat by Pulse Oximetry Oxygen Delivery Method Oxygen Flow Rate FIO2% 07/07/24 20:00 07/07/24 20:16 07/07/24 20:16 Temperature Pulse Rate 98 H 105 H Respiratory Rate 20 22 Blood Pressure 129/60 O2 Sat by Pulse Oximetry 97 Oxygen Delivery Method Oxygen Flow Rate FIO2% 07/07/24 21:00 07/07/24 21:00 07/07/24 21:00 Temperature Pulse Rate 96 H Respiratory Rate 11 L Blood Pressure 127/62 127/62 O2 Sat by Pulse Oximetry 96 Oxygen Delivery Method Oxygen Flow Rate FIO2% 07/07/24 22:00 07/07/24 22:00 07/07/24 22:00 Temperature Pulse Rate 98 H Respiratory Rate 21 Blood Pressure 129/65 129/65 O2 Sat by Pulse Oximetry 97 Oxygen Delivery Method Oxygen Flow Rate FIO2% 07/07/24 22:00 07/07/24 23:00 07/07/24 23:00 Temperature Pulse Rate 101 H Respiratory Rate 21 Blood Pressure 129/65 129/66 O2 Sat by Pulse Oximetry 97 Oxygen Delivery Method Oxygen Flow Rate FIO2% 07/08/24 00:00 07/08/24 00:00 07/08/24 01:00 Temperature Pulse Rate 102 H 99 H Respiratory Rate 20 21 Blood Pressure 126/73 O2 Sat by Pulse Oximetry 97 97 Oxygen Delivery Method Oxygen Flow Rate FIO2% 07/08/24 01:00 07/08/24 02:00 07/08/24 02:00 Temperature Pulse Rate 92 H Respiratory Rate 17 Blood Pressure 130/66 124/63 O2 Sat by Pulse Oximetry 95 Oxygen Delivery Method Oxygen Flow Rate FIO2% 07/08/24 03:00 07/08/24 03:00 07/08/24 04:00 Temperature Pulse Rate 99 H 99 H Respiratory Rate 20 24 Blood Pressure 118/58 O2 Sat by Pulse Oximetry 96 96 Oxygen Delivery Method Oxygen Flow Rate FIO2% 07/08/24 04:00 07/07/24 20:00 07/08/24 00:00 Temperature 98.4 F 99.3 F Pulse Rate Respiratory Rate Blood Pressure 121/68 O2 Sat by Pulse Oximetry Oxygen Delivery Method Oxygen Flow Rate FIO2% 07/08/24 04:00 07/07/24 20:10 07/08/24 07:00 Temperature 98.6 F Pulse Rate Respiratory Rate Blood Pressure O2 Sat by Pulse Oximetry Oxygen Delivery Method Room Air Room Air Oxygen Flow Rate FIO2% 07/08/24 08:00 07/08/24 09:33 Temperature 98.4 F Pulse Rate 100 H Respiratory Rate 23 Blood Pressure 128/65 O2 Sat by Pulse Oximetry 98 Oxygen Delivery Method Room Air Oxygen Flow Rate 2 FIO2% 21 Labs: Laboratory Last Values WBC 18.1 X10^3/uL (3.6-10.0) H 07/08/24 04:26 RBC 3.02 X10^6/uL (4.7-6.0) L 07/08/24 04:26 Hgb 8.3 g/dL (13.5-18.0) L 07/08/24 04:26 Hct 25.6 % (42.0-54.0) L 07/08/24 04:26 MCV 84.7 fL (80.0-100.0) 07/08/24 04:26 MCH 27.4 pg (27.0-34.0) 07/08/24 04:26 MCHC 32.3 g/dL (33.0-35.0) L 07/08/24 04:26 RDW 15.6 % (11.6-16.5) 07/08/24 04:26 Plt Count 378 X10^3/uL (150.0-450.0) 07/08/24 04:26 Plt Count Comment Adequate (ADEQUATE) 07/04/24 04:46 MPV 7.1 fL (7.4-11.0) L 07/08/24 04:26 Neut % (Auto) 77.5 % (42.0-75.0) H 07/08/24 04:26 Lymph % (Auto) 13.9 % (21.0-51.0) L 07/08/24 04:26 [place] % (Auto) 6.4 % (0.0-13.0) 07/08/24 04:26 Eos % (Auto) 1.6 % (0.9-2.9) 07/08/24 04:26 Baso % (Auto) 0.6 % (0.2-1.0) 07/08/24 04:26 Neut # (Auto) 14.0 x10^3/uL (2.2-4.8) H 07/08/24 04:26 Lymph # (Auto) 2.5 X10^3/uL (1.3-2.9) 07/08/24 04:26 [place] # (Auto) 1.2 x10^3/uL (0.3-0.8) H 07/08/24 04:26 Eos # (Auto) 0.3 x10^3/uL (0.0-0.2) H 07/08/24 04:26 Baso # (Auto) 0.1 X10^3/uL (0.0-0.1) 07/08/24 04:26 Absolute Nucleated RBC 0.0 /100WBC 07/08/24 04:26 Total Counted 100 07/04/24 04:46 Neutrophils % (Manual) 85 % (39-76) H 07/04/24 04:46 Band Neutrophils % 1 % (0-10) 07/02/24 04:11 Lymphocytes % (Manual) 8 % (13-43) L 07/04/24 04:46 Monocytes % (Manual) 5 % (4-9) 07/04/24 04:46 Eosinophils % (Manual) 2 % (0-6) 07/04/24 04:46 Plt Morphology Comment Normal (NORMAL) 07/04/24 04:46 RBC Morphology Normal (NORMAL) 07/04/24 04:46 Hypochromasia Slight A 06/27/24 04:13 Anisocytosis Slight A 06/30/24 04:03 Sodium 139 mmol/L (136-145) 07/08/24 04:26 Corrected Sodium 141 mmol/L (136-145) 07/08/24 04:26 Potassium 3.6 mmol/L (3.5-5.1) 07/08/24 04:26 Chloride 104 mmol/L (98-107) 07/08/24 04:26 Carbon Dioxide 29.4 mmol/L (21-32) 07/08/24 04:26 BUN 1 mg/dL (7-18) L 07/08/24 04:26 Creatinine 0.83 mg/dL (0.70-1.30) 07/08/24 04:26 Est GFR (MDRD) Af Amer > 60 (>60) 07/08/24 04:26 Est GFR (MDRD) Non-Af > 60 (>60) 07/08/24 04:26 Glucose 173 mg/dL (65-99) H 07/08/24 04:26 POC Glucose (mg/dL) 166 mg/dL (65-99) H 07/08/24 05:42 Lactic Acid 1.9 mmol/L (0.4-2.0) 06/27/24 01:15 Calcium 7.6 mg/dL (8.5-10.1) L 07/08/24 04:26 Corrected Calcium 8.9 mg/dL (8.5-10.1) 07/08/24 04:26 Magnesium 2.1 mg/dL (2.0-2.9) 07/08/24 04:26 Total Bilirubin 0.50 mg/dL (0.2-1.0) 07/08/24 04:26 AST 31 Units/L (15-37) 07/08/24 04:26 ALT 13 Units/L (12-78) 07/08/24 04:26 Alkaline Phosphatase 46 Units/L (46-116) 07/08/24 04:26 Total Protein 5.1 g/dL (6.4-8.2) L 07/08/24 04:26 Albumin 2.4 g/dL (3.4-5.0) L 07/08/24 04:26 Globulin 2.7 g/dL (2.5-4.5) 07/08/24 04:26 Albumin/Globulin Ratio 0.9 Ratio (1.1-2.1) L 07/08/24 04:26 Amylase 61 Units/L (25-115) 06/26/24 21:38 Lipase 20 Units/L (16-77) 06/26/24 21:38 Specimen Type Clean catch urine 06/27/24 07:48 Urine Color Yellow (YELLOW) 06/27/24 07:48 Urine Appearance Clear (CLEAR) 06/27/24 07:48 Urine pH 5.0 (5.0 - 8.0) 06/27/24 07:48 Ur Specific [place] 1.020 (1.000-1.030) 06/27/24 07:48 Urine Protein 2+ (NEGATIVE) 06/27/24 07:48 Urine Glucose (UA) 2+ (NEGATIVE) 06/27/24 07:48 Urine Ketones Negative (NEGATIVE) 06/27/24 07:48 Urine Blood Negative (NEGATIVE) 06/27/24 07:48 Urine Nitrite Negative (NEGATIVE) 06/27/24 07:48 Urine Bilirubin Negative (NEGATIVE) 06/27/24 07:48 Urine Urobilinogen Normal (NORMAL) 06/27/24 07:48 Ur Leukocyte Esterase Negative (NEGATIVE) 06/27/24 07:48 Urine RBC None seen /HPF (0-3) 06/27/24 07:48 Urine WBC 0-2 /HPF (0-5) 06/27/24 07:48 Ur Squamous Epith Cells Rare /HPF (NEGATIVE) 06/27/24 07:48 Calcium Oxalate Crystal Rare /HPF (NEGATIVE) 06/27/24 07:48 Other Crystals Few /HPF (NEGATIVE) 06/27/24 07:48 Urine Bacteria Negative /HPF (NEGATIVE) 06/27/24 07:48 Ur Culture Indicated? No/not indicated 06/27/24 07:48 SARS-CoV-2 (PCR) Negative (NEGATIVE) 06/30/24 10:12 Influenza Type A (PCR) Negative (NEGATIVE) 06/30/24 10:12 Influenza Type B (PCR) Negative (NEGATIVE) 06/30/24 10:12 RSV (PCR) Negative (NEGATIVE) 06/30/24 10:12 Blood Type O POSITIVE 06/29/24 17:20 Antibody Screen Negative 06/29/24 17:20 Crossmatch See Detail 06/29/24 17:20 Reason For Visit: SEPSIS/CARCINOMA OF SIGMOID COLON/TED Discharge Date Discharge Date: 07/08/24 Discharge Diagnosis All Active Problems (Updated 07/04/24 @ 10:55 by Krystina Rowell) Post-op pain (Acute) Preop cardiovascular exam (Acute) Sepsis (Acute) TED (acute kidney injury) (Acute) Cancer of sigmoid colon (Acute) Anemia (Acute) History of CVA (cerebrovascular accident) (Acute) 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 Pt is to keep follow up appointment as instructed and take medications as ordered. Discharge Medications Discharge Medications: No Known Drug Allergies Allergy (Unknown, Verified 06/26/24 21:23) CONTINUE taking the following medications cyproheptadine 4 mg tablet 2 mg PO BID appetite 06/26/24 [History] dronedarone 400 mg tablet (Multaq) 400 mg PO BID 06/26/24 [History] ergocalciferol (vitamin D2) 1,250 mcg (50,000 unit) capsule (Vitamin D2) 1,250 mcg PO QWEEK 06/26/24 [History] pantoprazole 40 mg tablet,delayed release 40 mg PO QDAY 06/26/24 [History] Discharge Plan Discharge Plan Hospital Course: Pt is a 78 year old male POD#7 s/p laparotomy resection of large perforated sigmoid tumor and partial small bowel resection, partial omentectomy and repair of umbilical hernia. On day of discharge patient was seen ambulating with assistance and walker. No acute events overnight. N/V has improved. His diet advanced. His abdominal pain is well-controlled. Pt discharged in stable condition. Instructed to follow up with pcp and general surgery in 1 week. Patient Disposition: 01 HOME, SELF-CARE Condition: Stable Health Concerns: Post Hospitalization: new medications and changes needed to prevent readmission or further decline. Pt educated and given instructions on all concerns. Care Plan Goals: Problem: Pain/Alteration in Comfort Goal: Improve/ Resolve Pain; Achieve Pain Tolerance Instructions: Take pain medications as prescribed. Contact your primary care provider if your pain is unrelieved or worsens. Follow up with primary care provider as directed. Plan of Treatment: Continue with present treatment and follow up plan. Pt is to keep follow up appointment as instructed and take medications as ordered. Prescriptions: No Action docusate sodium [Colace] 100 mg capsule 100 mg PO BID 30 Days Qty: 60 0RF hydrocodone-acetaminophen 10-325 mg tablet 1 - 2 tab PO TID MDD 4 PRN (Reason: pain) 30 Days Qty: 100 0RF ergocalciferol (vitamin D2) [Vitamin D2] 1,250 mcg (50,000 unit) capsule 1,250 mcg PO QWEEK Qty: 26 0RF cyproheptadine 4 mg tablet 2 mg PO BID Qty: 30 0RF aspirin 81 mg tablet,delayed release (DR/EC) 81 mg PO QDAY metformin 500 mg tablet 500 mg PO BID 30 Days Qty: 60 2RF simvastatin 40 mg tablet 40 mg PO QPM Qty: 90 0RF gabapentin 100 mg capsule 100 mg PO BID 30 Days Qty: 60 3RF ferrous gluconate 324 mg (37.5 mg iron) tablet 324 mg PO BID Qty: 60 2RF ondansetron HCl 4 mg tablet 4 mg PO TID PRN (Reason: nausea and vomiting) 10 Days Qty: 30 0RF finasteride 5 mg tablet 5 mg PO QDAY doxazosin 8 mg Tablet 8 mg PO DAILY glipizide 5 mg tablet 5 mg PO DAILY torsemide 5 mg tablet 5 mg PO QDAY pantoprazole 40 mg tablet,delayed release (DR/EC) 40 mg PO QDAY Multaq 400 mg tablet 400 mg PO BID Follow ups/Referrals Follow ups/Referrals: Stephane Sandoval [Primary Care Provider] - 07/12/24 2:00 pm VICKIE MALAGON [STAFF PHYSICIAN] - 07/14/24 2:20 pm Instructions Instructions: Food Choices to Help Relieve Diarrhea, Adult, Abdominal Pain, Adult, [id number], Flank Pain, Adult, [id number], Dehydration, Older Adult, [id number] Stand Alone Forms: Excuse From Work or School, Post Hospital Follow Up Care
== END 2024-07-08 11:05 | disposition home or self-care (01) | DRG 330 ==
LOC: ER 21:04 → MED/SURG 06-27 00:48 → ICU 07-01 10:38
PROVIDERS: ADMIT Internal Medicine; ATTEND Family Medicine
DX: C18.7 Malignant neoplasm of sigmoid colon; E78.5 Hyperlipidemia, unspecified; D64.89 Other specified anemias; N17.8 Other acute kidney failure; K63.89 Other specified diseases of intestine; Z86.73 Personal history of transient ischemic attack (TIA), and cerebral infarction without residual deficits; R63.0 Anorexia; N40.0 Benign prostatic hyperplasia without lower urinary tract symptoms; Z01.810 Encounter for preprocedural cardiovascular examination; Z65.8 Other specified problems related to psychosocial circumstances; Z60.8 Other problems related to social environment; E11.65 Type 2 diabetes mellitus with hyperglycemia; R26.89 Other abnormalities of gait and mobility; E83.42 Hypomagnesemia; Z20.822 Contact with and (suspected) exposure to COVID-19; K21.9 Gastro-esophageal reflux disease without esophagitis; G89.18 Other acute postprocedural pain; Z68.32 Body mass index [BMI] 32.0-32.9, adult; I87.2 Venous insufficiency (chronic) (peripheral); R10.84 Generalized abdominal pain; I10 Essential (primary) hypertension; Z79.01 Long term (current) use of anticoagulants

== ENCOUNTER 2024-12-24 10:15 | Observation (INO) ==
--- NOTE | 2024-12-24 10:42 | DR.SOBA ---
HPI Time Seen Time Seen by Provider: 12/24/24 10:39 HPI Comment HPI Comment: History as below. Reviewed Nurses Notes Reviewed: Yes PMH PMH Past Medical History: Arthritis, Diabetes, GERD, Hypertension and Sleep Apnea Past Surgical History: Yes Surgical History: Other Family History Family Medical History: Diabetes Mellitus and Hypertension Social History Do you use any recreational Drugs:: No ROS Review of Systems Constitutional: Other (ANASACA); negative Fever Eyes: No Symptoms Reported and Tearing ENTM: Nose Congestion; negative Nose Discharge or Throat Pain Respiratoy: No Symptoms Reported Cardiovascular: Edema; negative Chest Pain Gastrointestinal/Abdominal: Vomiting Genitourinary: Bleeding; negative Dysuria Neurological: No Symptoms Reported; negative Headache or Dizziness Musculoskeletal: No Symptoms Reported; negative Muscle Pain Integumentary: No Symptoms Reported; negative Rash Hematologic/Lymphatic: No Symptoms Reported Endocrine: No Symptoms Reported Psychiatric: No Symptoms Reported All Other Systems: Reviewed and Negative PE Vital Signs Vitals: Vital Signs Temperature 98.4 F Temperature 99.3 F Pulse Rate [Right] 84 Pulse Rate 84 Pulse Rate 84 Pulse Rate 83 Pulse Rate 88 Pulse Rate 82 Pulse Rate 81 Pulse Rate 84 Pulse Rate 82 Pulse Rate 81 Pulse Rate 92 Respiratory Rate 19 Respiratory Rate 20 Blood Pressure [Right Arm] 137/60 Blood Pressure 137/60 Blood Pressure 110/61 Blood Pressure 123/56 Blood Pressure 112/54 O2 Sat by Pulse Oximetry 97 O2 Sat by Pulse Oximetry 99 O2 Sat by Pulse Oximetry 98 O2 Sat by Pulse Oximetry 97 O2 Sat by Pulse Oximetry 97 O2 Sat by Pulse Oximetry 96 O2 Sat by Pulse Oximetry 92 O2 Sat by Pulse Oximetry 93 O2 Sat by Pulse Oximetry 98 O2 Sat by Pulse Oximetry 97 O2 Sat by Pulse Oximetry 98 O2 Sat by Pulse Oximetry 93 General Limitations: No Limitations General Appearance: Alert and In Distress Head Head Exam: Normal Inspection and Atraumatic Eyes Eye exam: Normal Appearance and Periorbital Swelling; negative Scleral Icterus or Conjunctival Injection ENT ENT Exam: Normal Exam, Normal Oropharynx, Normal External Ear Exam and TM's Normal Bilaterally Neck Neck Exam: Normal Inspection and Trachea Midline; negative Tenderness Chest Chest Inspection: Normal Inspection and Symmetric Chest Wall Rise; negative Tenderness Respiratory Respiratory Exam: Respiratory Distress; negative Accessory Muscle Use or Chest Wall Tenderness Respiratory Exam: Bilateral: Rhonchi Cardiovascular Cardiovascular Exam: Regular Rate, Normal Rhythm and Normal Heart Sounds; negative Systolic Murmur or Diastolic Murmur Abdominal Exam Abdominal Exam: Normal Inspection, Normal Bowel Sounds and Soft; negative Tender ness Extremities Extremities Exam: Normal Capillary Refill and Edema Neurologic Neurological Exam: Alert, Oriented X3 and Motor Sensory Deficit Psychiatric Psychiatric Exam: Normal Affect and Normal Mood Skin Skin Exam: Warm and Intact ROR Labs Reviewed 12/24/24 11:55 12/24/24 11:55 Laboratory: WBC 7.8 X10^3/uL (3.6-10.0) 12/24/24 11:55 RBC 2.51 X10^6/uL (4.7-6.0) L 12/24/24 11:55 Hgb 8.2 g/dL (13.5-18.0) L 12/24/24 11:55 Hct 25.1 % (42.0-54.0) L 12/24/24 11:55 MCV 100.0 fL (80.0-100.0) 12/24/24 11:55 MCH 32.8 pg (27.0-34.0) 12/24/24 11:55 MCHC 32.8 g/dL (33.0-35.0) L 12/24/24 11:55 RDW 13.8 % (11.6-16.5) 12/24/24 11:55 Plt Count 131 X10^3/uL (150.0-450.0) L 12/24/24 11:55 MPV 8.6 fL (7.4-11.0) 12/24/24 11:55 Neut % (Auto) 65.9 % (42.0-75.0) 12/24/24 11:55 Lymph % (Auto) 25.7 % (21.0-51.0) 12/24/24 11:55 [place] % (Auto) 7.3 % (0.0-13.0) 12/24/24 11:55 Eos % (Auto) 0.3 % (0.9-2.9) L 12/24/24 11:55 Baso % (Auto) 0.8 % (0.2-1.0) 12/24/24 11:55 Neut # (Auto) 5.1 x10^3/uL (2.2-4.8) H 12/24/24 11:55 Lymph # (Auto) 2.0 X10^3/uL (1.3-2.9) 12/24/24 11:55 [place] # (Auto) 0.6 x10^3/uL (0.3-0.8) 12/24/24 11:55 Eos # (Auto) 0.0 x10^3/uL (0.0-0.2) 12/24/24 11:55 Baso # (Auto) 0.1 X10^3/uL (0.0-0.1) 12/24/24 11:55 Absolute Nucleated RBC 0.0 /100WBC 12/24/24 11:55 Sodium 140 mmol/L (136-145) 12/24/24 11:55 Corrected Sodium 141 mmol/L (136-145) 12/24/24 11:55 Potassium 3.6 mmol/L (3.5-5.1) 12/24/24 11:55 Chloride 105 mmol/L (98-107) 12/24/24 11:55 Carbon Dioxide 26.4 mmol/L (21-32) 12/24/24 11:55 BUN 20 mg/dL (7-18) H 12/24/24 11:55 Creatinine 1.57 mg/dL (0.70-1.30) H 12/24/24 11:55 Est GFR (MDRD) Af Amer 55 (>60) L 12/24/24 11:55 Est GFR (MDRD) Non-Af 45 (>60) L 12/24/24 11:55 Glucose 135 mg/dL (65-99) H 12/24/24 11:55 Calcium 8.4 mg/dL (8.5-10.1) L 12/24/24 11:55 Corrected Calcium 9.0 mg/dL (8.5-10.1) 12/24/24 11:55 Total Bilirubin 0.90 mg/dL (0.2-1.0) 12/24/24 11:55 AST 25 Units/L (15-37) 12/24/24 11:55 ALT 28 Units/L (12-78) 12/24/24 11:55 Alkaline Phosphatase 29 Units/L (46-116) L 12/24/24 11:55 B-Natriuretic Peptide 54.0 pg/mL (0-79) 12/24/24 11:55 Total Protein 5.8 g/dL (6.4-8.2) L 12/24/24 11:55 Albumin 3.3 g/dL (3.4-5.0) L 12/24/24 11:55 Globulin 2.5 g/dL (2.5-4.5) 12/24/24 11:55 Albumin/Globulin Ratio 1.3 Ratio (1.1-2.1) 12/24/24 11:55 Opioid Opioid Risk Tool Age (Tayo box if 16-45): No History of Preadolescent Sexual Abuse: No Total: 0 Total Score Risk Category: Low Risk Copyright: [facility] predicting aberrant behaviors Discharge Plan Diagnosis Discharge Problem: Anasarca, Swelling of right elbow, Right leg swelling, SOB (shortness of breath) Conjunctivitis Qualifiers: Conjunctivitis type: acute Acute conjunctivitis type: bacterial Laterality: bilateral Qualified Code(s): H10.33 - Unspecified acute conjunctivitis, bilateral Angioedema Qualifiers: Encounter type: initial encounter Qualified Code(s): T78.3XXA - Angioneurotic edema, initial encounter Discharge Plan Patient Disposition: ADMITTED INPATIENT Condition: Stable Orders to Discharge Patient Discharge Orders: Transfer (Routine); Ordered 12/24/24 Ordered By: LUZ MARINA BETH
--- NOTE | 2024-12-24 11:29 | EKG ---
Test Reason : HTN Blood Pressure : */* mmHG Vent. Rate : 83 BPM Atrial Rate : 83 BPM P-R Int : 118 ms QRS Dur : 74 ms QT Int : 312 ms P-R-T Axes : 61 61 38 degrees QTc Int : 366 ms Normal sinus rhythm Low voltage QRS Septal infarct , age undetermined Abnormal ECG When compared with ECG of 27-JUN-2024 15:57, premature ventricular complexes are no longer present Septal infarct is now present Nonspecific T wave abnormality now evident in Inferior leads Nonspecific T wave abnormality now evident in Lateral leads QT has shortened Confirmed by Rashad Jackson MD ([id number]) on 12/25/2024 7:20:28 AM Referred By: Confirmed By: Rashad Jackson MD
[2024-12-24 12:06] LABS: BASOPHILS # (AUTO) 0.1 X10^3/uL (0.0-0.1); BASOPHILS % (AUTO) 0.8 % (0.2-1.0); EOSINOPHILS % (AUTO) 0.3 % (0.9-2.9); HEMATOCRIT 25.1 % (42.0-54.0); HEMOGLOBIN 8.2 g/dL (13.5-18.0); LYMPHOCYTES % (AUTO) 25.7 % (21.0-51.0); MEAN CORPUSCULAR HEMOGLOBIN 32.8 pg (27.0-34.0); MEAN CORPUSCULAR HGB CONC 32.8 g/dL (33.0-35.0); MEAN PLATELET VOLUME 8.6 fL (7.4-11.0); MONOCYTES # (AUTO) 0.6 x10^3/uL (0.3-0.8); MONOCYTES % (AUTO) 7.3 % (0.0-13.0); NEUTROPHILS # (AUTO) 5.1 x10^3/uL (2.2-4.8); NEUTROPHILS % (AUTO) 65.9 % (42.0-75.0); PLATELET COUNT 131 X10^3/uL (150.0-450.0); RED BLOOD COUNT 2.51 X10^6/uL (4.7-6.0); RED CELL DISTRIBUTION WIDTH 13.8 % (11.6-16.5); WHITE BLOOD COUNT 7.8 X10^3/uL (3.6-10.0)
[2024-12-24 12:16] LABS: ALBUMIN 3.3 g/dL (3.4-5.0); CALCIUM 8.4 mg/dL (8.5-10.1); CARBON DIOXIDE 26.4 mmol/L (21-32); CREATININE 1.57 mg/dL (0.70-1.30); POTASSIUM 3.6 mmol/L (3.5-5.1); TOTAL PROTEIN 5.8 g/dL (6.4-8.2)
--- NOTE | 2024-12-24 14:28 | VAS ---
EXAM: LOWER EXT VENOUS, UNILATERAL HISTORY: unilateral edema; RT LEG SWELLING COMPARISON: None available. TECHNIQUE: Multiple freeman scale and color flow Doppler images of the deep venous system were obtained of the [facility] t lower extremity. FINDINGS: The deep venous system of the right lower extremity was evaluated from the level of the common femora l vein through the popliteal vein. Normal color flow and augmentation can be observed. In addition, n ormal compression is seen throughout the deep venous system. However there does appear to be some in complete compression in the posterior tibial vein suggesting a nonocclusive thrombus. IMPRESSION: Findings suggesting nonocclusive thrombus in the posterior tibial vein. THIS IS AN ELECTRONICALLY VERIFIED FINAL REPORT 12/24/2024 2:24 PM - Electronically signed by Espinoza Orozco MD
--- NOTE | 2024-12-24 14:29 | VAS ---
EXAM:UPPER EXT VENOUS, UNILATERALHISTORY:unilateral edema; RT ARM SWELLINGCOMPARISON:None available.TECHNIQUE:Multiple freeman scale and color flow Doppler images of the deep venous system were obtained of the right upper extremity.FINDINGS:The deep venous system of the right upper extremity was evaluated from the level of the internal jugular through the radial and ulnar veins. There is incomplete compression and color flow in the IJ suggesting a nonocclusive thrombus. The remainder of the right lower extremity is patent.IMPRESSION:Positive for nonocclusive thrombus in the internal jugular veinTHIS IS AN ELECTRONICALLY VERIFIED FINAL REPORT12/24/2024 2:25 PM - Electronically signed by Espinoza Orozco MD
[2024-12-24] MEDS: LASIX IVP ONE ×2 (15:05→17:05)
[2024-12-24] MEDS ORDERED: COLACE CAP 100 MG PO PRN (16:09)
[2024-12-24 16:19] LABS: BILIRUBIN,URINE NEGATIVE (NEGATIVE); BLOOD/HEMOGLOBIN,URINE NEGATIVE (NEGATIVE); GLUCOSE, URINE NEGATIVE (NEGATIVE); KETONES,URINE NEGATIVE (NEGATIVE); LEUKOCYTE ESTERASE ,URINE NEGATIVE (NEGATIVE); NITRITES,URINE NEGATIVE (NEGATIVE); PROTEIN,URINE NEGATIVE (NEGATIVE); UROBILINOGEN,URINE NORMAL (NORMAL)
[2024-12-24 16:21] LABS: APPEARANCE,URINE CLEAR (CLEAR); COLOR,URINE PALE YELLOW (YELLOW)
[2024-12-24 16:49] VITALS: BMI 30.5
[2024-12-24] MEDS: GLUCOPHAGE PO SCH (17:04)
[2024-12-24] MEDS: GLUCOPHAGE ONE (17:05)
[2024-12-24] MEDS: CILOXAN 0.3% EACHEYE SCH (17:40)
[2024-12-24] MEDS: SNACK - Diabetic Appropriate PO SCH (20:21)
--- NOTE | 2024-12-24 20:52 | RAD ---
EXAM:CHESTHISTORY:SOB;COMPARISON: br.br.br.br.br for interpretation.FINDINGS:The cardiomediastinal silhouette is within normal limits. Lungs show no focal consolidation, pneumothorax, or pleural fluid.IMPRESSION:No acute cardiopulmonary process.THIS IS AN ELECTRONICALLY VERIFIED FINAL REPORT12/24/2024 8:49 PM - Electronically signed by Peep Sherwood MD
[2024-12-24] MEDS ORDERED: ZOCOR TAB 40 MG PO SCH (21:00)
[2024-12-24] MEDS: MULTAQ PO SCH (21:13)
[2024-12-24] MEDS: NEURONTIN CAP 100 MG PO SCH (21:13)
[2024-12-24] MEDS: PERIACTIN TAB 4 MG PO SCH (21:13)
[2024-12-24] MEDS: ELIQUIS PO SCH (21:13)
[2024-12-24] MEDS: VOLTAREN 1 % GEL MULTI DOSE TUBE TOP SCH (21:15)
[2024-12-25 05:35] LABS: BASOPHILS % (AUTO) 0.2 % (0.2-1.0); EOSINOPHILS % (AUTO) 0.5 % (0.9-2.9); HEMATOCRIT 24.8 % (42.0-54.0); HEMOGLOBIN 8.2 g/dL (13.5-18.0); LYMPHOCYTES # (AUTO) 2.3 X10^3/uL (1.3-2.9); MEAN CORPUSCULAR HEMOGLOBIN 32.7 pg (27.0-34.0); MEAN CORPUSCULAR HGB CONC 32.9 g/dL (33.0-35.0); MEAN CORPUSCULAR VOLUME 99.6 fL (80.0-100.0); MONOCYTES # (AUTO) 0.6 x10^3/uL (0.3-0.8); MONOCYTES % (AUTO) 6.8 % (0.0-13.0); NEUTROPHILS % (AUTO) 66.5 % (42.0-75.0); PLATELET COUNT 176 X10^3/uL (150.0-450.0); RED BLOOD COUNT 2.49 X10^6/uL (4.7-6.0); RED CELL DISTRIBUTION WIDTH 13.9 % (11.6-16.5)
[2024-12-25 05:45] LABS: ALBUMIN 3.2 g/dL (3.4-5.0); CALCIUM 8.4 mg/dL (8.5-10.1); CARBON DIOXIDE 29.6 mmol/L (21-32); CREATININE 1.51 mg/dL (0.70-1.30); MAGNESIUM 1.3 mg/dL (2.0-2.9); POTASSIUM 3.9 mmol/L (3.5-5.1); TOTAL PROTEIN 5.7 g/dL (6.4-8.2)
[2024-12-25] MEDS ORDERED: CONSULT PHARMACY - POTASSIUM & MAGNESIUM XX SCH (07:00)
[2024-12-25] MEDS ORDERED: TORSEMIDE 5 MG PO SCH (09:00)
[2024-12-25] MEDS: ASPIRIN EC 81 MG PO SCH (09:03)
[2024-12-25] MEDS: LASIX IVP SCH (09:03)
[2024-12-25] MEDS: MAG-OX TAB PO SCH (09:04)
[2024-12-25] MEDS: GLUCOTROL PO SCH (09:04)
[2024-12-25] MEDS: PROSCAR PO SCH (09:04)
[2024-12-25] MEDS: GLUCOPHAGE ONE (09:05)
[2024-12-25] MEDS: IMATINIB 400 MG PO SCH (09:37)
[2024-12-25] MEDS: ZOFRAN TAB 4 MG PO PRN (10:51)
--- NOTE | 2024-12-25 11:32 | DR.H&P ---
H&P History & Physical for Day of: H&P Date: 12/25/24 Chief Complaint Chief Complaint: right leg swelling right arm swelling History of Present Illness History of Present Illness: Patient is a 79-year-old male with a past medical history of hypertension, diabetes, arthritis, presenting with right upper extremity and lower extremity edema. Patient states there is noticed that for the past few days. Labs/imaging: WBC 9, hemoglobin 8.2, platelets 176, sodium 142, potassium 3.9, creatinine 1.51, glucose 131. Venous duplex was obtained that revealed a nonocclusive thrombus right internal jugular vein as well as a right posterior tibial vein. Patient has been on Eliquis for right lower extremity DVT. It is unclear if he has been actually compliant with taking medications consistently. Eliquis has been started here in the hospital. Will continue. Will also consult vascular surgery. Patient does have significant edema of the right arm and right lower extremity. Will restart home medications. Otherwise continue with current treatment plan. Continue closely monitor and follow-up labs/imaging. Past Medical History Past Medical History: Arthritis, Diabetes, GERD, Hypertension and Sleep Apnea Past Surgical History Surgical History: Other Family History Family Medical History: Diabetes Mellitus Social History Does patient currently use any type of tobacco product: No Have you used tobacco products in the last 12 months: No Type of Tobacco Use: None Does any household member use tobacco: No Alcohol Use: None Drug Use: None Medications Home Medications: Home Medications Medication Instructions Recorded Confirmed Type finasteride 5 mg tablet 5 mg PO QDAY 05/24/24 12/24/24 History imatinib 400 mg tablet 400 mg PO QDAY 09/15/24 12/24/24 History lancets (Accu-Chek Softclix #100 ea 09/15/24 12/24/24 History Lancets) aspirin 81 mg tablet,delayed 81 mg PO QDAY 12/24/24 12/24/24 History release diclofenac sodium 1 % topical gel 2 g topical BID 12/24/24 12/24/24 History docusate sodium 100 mg capsule 100 mg PO QDAY PRN 12/24/24 12/24/24 History ondansetron HCl 4 mg tablet 4 mg PO TID PRN Nausea And Vomiting 12/24/24 12/24/24 History simvastatin 40 mg tablet 40 mg PO HS 12/24/24 12/24/24 History torsemide 5 mg tablet 5 mg PO QDAY edema 12/24/24 12/24/24 History Allergies Allergies Allergy/AdvReac Type Severity Reaction Status Date / Time No Known Drug Allergies Allergy Unknown Verified 09/09/24 11:07 Labs 12/25/24 04:50 12/25/24 04:50 Labs: Laboratory WBC 9.0 X10^3/uL (3.6-10.0) 12/25/24 04:50 RBC 2.49 X10^6/uL (4.7-6.0) L 12/25/24 04:50 Hgb 8.2 g/dL (13.5-18.0) L 12/25/24 04:50 Hct 24.8 % (42.0-54.0) L 12/25/24 04:50 MCV 99.6 fL (80.0-100.0) 12/25/24 04:50 MCH 32.7 pg (27.0-34.0) 12/25/24 04:50 MCHC 32.9 g/dL (33.0-35.0) L 12/25/24 04:50 RDW 13.9 % (11.6-16.5) 12/25/24 04:50 Plt Count 176 X10^3/uL (150.0-450.0) 12/25/24 04:50 MPV 9.0 fL (7.4-11.0) 12/25/24 04:50 Neut % (Auto) 66.5 % (42.0-75.0) 12/25/24 04:50 Lymph % (Auto) 26.0 % (21.0-51.0) 12/25/24 04:50 [place] % (Auto) 6.8 % (0.0-13.0) 12/25/24 04:50 Eos % (Auto) 0.5 % (0.9-2.9) L 12/25/24 04:50 Baso % (Auto) 0.2 % (0.2-1.0) 12/25/24 04:50 Neut # (Auto) 6.0 x10^3/uL (2.2-4.8) H 12/25/24 04:50 Lymph # (Auto) 2.3 X10^3/uL (1.3-2.9) 12/25/24 04:50 [place] # (Auto) 0.6 x10^3/uL (0.3-0.8) 12/25/24 04:50 Eos # (Auto) 0.0 x10^3/uL (0.0-0.2) 12/25/24 04:50 Baso # (Auto) 0.0 X10^3/uL (0.0-0.1) 12/25/24 04:50 Absolute Nucleated RBC 0.0 /100WBC 12/25/24 04:50 Sodium 142 mmol/L (136-145) 12/25/24 04:50 Corrected Sodium 143 mmol/L (136-145) 12/25/24 04:50 Potassium 3.9 mmol/L (3.5-5.1) 12/25/24 04:50 Chloride 106 mmol/L (98-107) 12/25/24 04:50 Carbon Dioxide 29.6 mmol/L (21-32) 12/25/24 04:50 BUN 20 mg/dL (7-18) H 12/25/24 04:50 Creatinine 1.51 mg/dL (0.70-1.30) H 12/25/24 04:50 Est GFR (MDRD) Af Amer 57 (>60) L 12/25/24 04:50 Est GFR (MDRD) Non-Af 47 (>60) L 12/25/24 04:50 Glucose 131 mg/dL (65-99) H 12/25/24 04:50 POC Glucose (mg/dL) 121 mg/dL (65-99) H 12/25/24 05:44 Calcium 8.4 mg/dL (8.5-10.1) L 12/25/24 04:50 Corrected Calcium 9.0 mg/dL (8.5-10.1) 12/25/24 04:50 Magnesium 1.3 mg/dL (2.0-2.9) L 12/25/24 04:50 Total Bilirubin 0.70 mg/dL (0.2-1.0) 12/25/24 04:50 AST 27 Units/L (15-37) 12/25/24 04:50 ALT 32 Units/L (12-78) 12/25/24 04:50 Alkaline Phosphatase 28 Units/L (46-116) L 12/25/24 04:50 B-Natriuretic Peptide 54.0 pg/mL (0-79) 12/24/24 11:55 Total Protein 5.7 g/dL (6.4-8.2) L 12/25/24 04:50 Albumin 3.2 g/dL (3.4-5.0) L 12/25/24 04:50 Globulin 2.5 g/dL (2.5-4.5) 12/25/24 04:50 Albumin/Globulin Ratio 1.3 Ratio (1.1-2.1) 12/25/24 04:50 Specimen Type Clean catch urine 12/24/24 15:42 Urine Color Pale yellow (YELLOW) 12/24/24 15:42 Urine Appearance Clear (CLEAR) 12/24/24 15:42 Urine pH 6.0 (5.0 - 8.0) 12/24/24 15:42 Ur Specific [place] 1.015 (1.000-1.030) 12/24/24 15:42 Urine Protein Negative (NEGATIVE) 12/24/24 15:42 Urine Glucose (UA) Negative (NEGATIVE) 12/24/24 15:42 Urine Ketones Negative (NEGATIVE) 12/24/24 15:42 Urine Blood Negative (NEGATIVE) 12/24/24 15:42 Urine Nitrite Negative (NEGATIVE) 12/24/24 15:42 Urine Bilirubin Negative (NEGATIVE) 12/24/24 15:42 Urine Urobilinogen Normal (NORMAL) 12/24/24 15:42 Ur Leukocyte Esterase Negative (NEGATIVE) 12/24/24 15:42 Review of Systems Constitutional: No Symptoms Reported Eyes: No Symptoms Reported ENT: No Symptoms Reported Respiratory: No Symptoms Reported Cardiovascular: No Symptoms Reported Gastrointestinal: No Symptoms Reported Genitourinary: No Symptoms Reported Musculoskeletal: Other (edema RUE, RLE) Skin: No Symptoms Reported Neurological: No Symptoms Reported Physical Exam Vital Signs: Vital Signs Temperature 97.2 F Temperature 98.0 F Temperature 98.0 F Pulse Rate [Right] 68 Pulse Rate [Right] 76 Pulse Rate [Right] 76 Respiratory Rate 19 Respiratory Rate 19 Respiratory Rate 19 Blood Pressure [Left Arm] 119/58 Blood Pressure [Left Arm] 115/62 Blood Pressure [Left Arm] 115/62 O2 Sat by Pulse Oximetry 93 O2 Sat by Pulse Oximetry 94 O2 Sat by Pulse Oximetry 94 Oriented: Normal Eyes: Normal Ear: Normal Nose: Normal Throat: Normal Respiratory: Clear Throughout Cardiovascular: Normal : Normal Auscultation: Bowel Sounds: Normal Palpation: Normal Tenderness: Normal Skin: Normal Musculoskeletal: Right (RUE, RLE edema) Psychiatric: Normal Mood Description: Calm and Appropriate Affect: Normal Speech Pattern: Clear and Appropriate Assessment/Plan (1) Thrombosis of right internal jugular vein: Status: Acute Plan: continue Eliquis consult vascular surgery (2) Right leg DVT: Qualifiers: Affected thrombotic vein of extremity: unspecified vein of extremity Ch ronicity: unspecified Qualified Code(s): I82.401 - Acute embolism and thrombosis of unspecified deep veins of right lower extremity Status: Acute (3) Anasarca: Status: Acute Plan: IV lasix daily Review H&P Reviewed: Yes Patient was examined?: Yes
[2024-12-25] MEDS ORDERED: GLUCOPHAGE ONE (16:14)
--- NOTE | 2024-12-26 02:19 | EKG ---
Test Reason : tachycardia Blood Pressure : */* mmHG Vent. Rate : 88 BPM Atrial Rate : 88 BPM P-R Int : 114 ms QRS Dur : 70 ms QT Int : 352 ms P-R-T Axes : 45 38 56 degrees QTc Int : 425 ms Normal sinus rhythm Low voltage QRS Borderline ECG When compared with ECG of 24-DEC-2024 11:25, QT has lengthened Confirmed by Rashad Jackson MD ([id number]) on 12/26/2024 7:35:14 AM Referred By: Confirmed By: Rashad Jackson MD
[2024-12-26 05:14] LABS: BASOPHILS % (AUTO) 0.3 % (0.2-1.0); EOSINOPHILS % (AUTO) 0.3 % (0.9-2.9); HEMATOCRIT 23.4 % (42.0-54.0); HEMOGLOBIN 7.7 g/dL (13.5-18.0); LYMPHOCYTES # (AUTO) 2.6 X10^3/uL (1.3-2.9); LYMPHOCYTES % (AUTO) 29.2 % (21.0-51.0); MEAN CORPUSCULAR HEMOGLOBIN 32.8 pg (27.0-34.0); MEAN CORPUSCULAR HGB CONC 33.1 g/dL (33.0-35.0); MEAN PLATELET VOLUME 8.7 fL (7.4-11.0); MONOCYTES # (AUTO) 0.6 x10^3/uL (0.3-0.8); MONOCYTES % (AUTO) 6.3 % (0.0-13.0); NEUTROPHILS # (AUTO) 5.7 x10^3/uL (2.2-4.8); NEUTROPHILS % (AUTO) 63.9 % (42.0-75.0); PLATELET COUNT 177 X10^3/uL (150.0-450.0); RED BLOOD COUNT 2.36 X10^6/uL (4.7-6.0); RED CELL DISTRIBUTION WIDTH 13.9 % (11.6-16.5); WHITE BLOOD COUNT 8.9 X10^3/uL (3.6-10.0)
[2024-12-26 05:29] LABS: ALANINE AMINOTRANSFERASE 34 Units/L (12-78); ALBUMIN 3.1 g/dL (3.4-5.0); ALKALINE PHOSPHATASE 28 Units/L (46-116); ASPARTATE AMINO TRANSFERASE 24 Units/L (15-37); BLOOD UREA NITROGEN 21 mg/dL (7-18); CALCIUM 8.6 mg/dL (8.5-10.1); CARBON DIOXIDE 29.4 mmol/L (21-32); CHLORIDE 107 mmol/L (98-107); COR CA(FOR HYPOALB) 9.3 mg/dL (8.5-10.1); CREATININE 1.43 mg/dL (0.70-1.30); GLUCOSE 84 mg/dL (65-99); MAGNESIUM 1.3 mg/dL (2.0-2.9); POTASSIUM 3.9 mmol/L (3.5-5.1); SODIUM 143 mmol/L (136-145); TOTAL PROTEIN 5.6 g/dL (6.4-8.2); eGFR NON BLACK RACES 50 (>60)
[2024-12-26] MEDS ORDERED: CONSULT PHARMACY - POTASSIUM & MAGNESIUM XX SCH (07:00)
[2024-12-26] MEDS: GLUCOPHAGE ONE (08:56)
[2024-12-26] MEDS: MAG-OX TAB ONE (09:08)
[2024-12-26] MEDS: MAG-OX TAB PO SCH (09:09)
--- NOTE | 2024-12-26 10:17 | PCM.PROG ---
Progress Note Progress Note for Day of Date of Exam: 12/26/24 Subjective Subjective: Patient seen at bedside, no acute events overnight. He is feeling better. He states right arm pain and swelling has improved a little bit. He is able to move his hand and make a fist. He is currently admitted for internal jugular vein DVT. Dr Edmond has been consulted. He is on eliquis. Denies any bleeding. Labs/imaging reviewed: -Hgb 7.7 WBC 8.9 K 3.9 BUN/Cr 21/1.43 Mag 1.3 - Venous US results reviewed Plan: Follow vascular recommendations. Continue current treatment. Repeat H&H, transfuse if below 8. Continue home medications. Replace electrolytes as per protocol. Ambulate as tolerated. Monitor AM labs/imaging. Past Medical Family Social History Allergies: Allergies No Known Drug Allergies Allergy (Unknown, Verified 09/09/24 11:07) Onset Date: 04/16/2012 Vital Signs and I&O's Vital Signs: Vital Signs Temperature 99.0 F Temperature 98.2 F Pulse Rate [Right] 82 Pulse Rate [Right] 84 Respiratory Rate 18 Respiratory Rate 21 Blood Pressure [Left Arm] 108/52 Blood Pressure [Left Arm] 118/57 O2 Sat by Pulse Oximetry 92 O2 Sat by Pulse Oximetry 93 Intake and Output: Intake & Output 12/23/24 12/24/24 12/25/24 12/26/24 23:59 23:59 23:59 23:59 Intake Total 420 / 420 260 / 260 260 / 260 Output Total 100 / 100 400 / 400 Balance 320 / 320 -140 / -140 260 / 260 Physical Exam Oriented: Normal Eyes: Normal Ear: Normal Nose: Normal Throat: Normal Cardiovascular: Normal Auscultation: Bowel Sounds: Normal Palpation: Normal Tenderness: Normal Skin: Normal Musculoskeletal: Right (RUE, RLE edema) Psychiatric: Normal Mood Description: Calm and Appropriate Affect: Normal Speech Pattern: Clear and Appropriate Laboratory and Diagnostics 12/26/24 04:35 12/26/24 04:35 Labs: Laboratory WBC 8.9 X10^3/uL (3.6-10.0) 12/26/24 04:35 RBC 2.36 X10^6/uL (4.7-6.0) L 12/26/24 04:35 Hgb 7.7 g/dL (13.5-18.0) L 12/26/24 04:35 Hct 23.4 % (42.0-54.0) L 12/26/24 04:35 MCV 99.0 fL (80.0-100.0) 12/26/24 04:35 MCH 32.8 pg (27.0-34.0) 12/26/24 04:35 MCHC 33.1 g/dL (33.0-35.0) 12/26/24 04:35 RDW 13.9 % (11.6-16.5) 12/26/24 04:35 Plt Count 177 X10^3/uL (150.0-450.0) 12/26/24 04:35 MPV 8.7 fL (7.4-11.0) 12/26/24 04:35 Neut % (Auto) 63.9 % (42.0-75.0) 12/26/24 04:35 Lymph % (Auto) 29.2 % (21.0-51.0) 12/26/24 04:35 [place] % (Auto) 6.3 % (0.0-13.0) 12/26/24 04:35 Eos % (Auto) 0.3 % (0.9-2.9) L 12/26/24 04:35 Baso % (Auto) 0.3 % (0.2-1.0) 12/26/24 04:35 Neut # (Auto) 5.7 x10^3/uL (2.2-4.8) H 12/26/24 04:35 Lymph # (Auto) 2.6 X10^3/uL (1.3-2.9) 12/26/24 04:35 [place] # (Auto) 0.6 x10^3/uL (0.3-0.8) 12/26/24 04:35 Eos # (Auto) 0.0 x10^3/uL (0.0-0.2) 12/26/24 04:35 Baso # (Auto) 0.0 X10^3/uL (0.0-0.1) 12/26/24 04:35 Absolute Nucleated RBC 0.1 /100WBC 12/26/24 04:35 Sodium 143 mmol/L (136-145) 12/26/24 04:35 Corrected Sodium TNP 12/26/24 04:35 Potassium 3.9 mmol/L (3.5-5.1) 12/26/24 04:35 Chloride 107 mmol/L (98-107) 12/26/24 04:35 Carbon Dioxide 29.4 mmol/L (21-32) 12/26/24 04:35 BUN 21 mg/dL (7-18) H 12/26/24 04:35 Creatinine 1.43 mg/dL (0.70-1.30) H 12/26/24 04:35 Est GFR (MDRD) Af Amer > 60 (>60) 12/26/24 04:35 Est GFR (MDRD) Non-Af 50 (>60) L 12/26/24 04:35 Glucose 84 mg/dL (65-99) 12/26/24 04:35 POC Glucose (mg/dL) 92 mg/dL (65-99) 12/26/24 05:58 Calcium 8.6 mg/dL (8.5-10.1) 12/26/24 04:35 Corrected Calcium 9.3 mg/dL (8.5-10.1) 12/26/24 04:35 Magnesium 1.3 mg/dL (2.0-2.9) L 12/26/24 04:35 Total Bilirubin 0.60 mg/dL (0.2-1.0) 12/26/24 04:35 AST 24 Units/L (15-37) 12/26/24 04:35 ALT 34 Units/L (12-78) 12/26/24 04:35 Alkaline Phosphatase 28 Units/L (46-116) L 12/26/24 04:35 B-Natriuretic Peptide 54.0 pg/mL (0-79) 12/24/24 11:55 Total Protein 5.6 g/dL (6.4-8.2) L 12/26/24 04:35 Albumin 3.1 g/dL (3.4-5.0) L 12/26/24 04:35 Globulin 2.5 g/dL (2.5-4.5) 12/26/24 04:35 Albumin/Globulin Ratio 1.2 Ratio (1.1-2.1) 12/26/24 04:35 Specimen Type Clean catch urine 12/24/24 15:42 Urine Color Pale yellow (YELLOW) 12/24/24 15:42 Urine Appearance Clear (CLEAR) 12/24/24 15:42 Urine pH 6.0 (5.0 - 8.0) 12/24/24 15:42 Ur Specific [place] 1.015 (1.000-1.030) 12/24/24 15:42 Urine Protein Negative (NEGATIVE) 12/24/24 15:42 Urine Glucose (UA) Negative (NEGATIVE) 12/24/24 15:42 Urine Ketones Negative (NEGATIVE) 12/24/24 15:42 Urine Blood Negative (NEGATIVE) 12/24/24 15:42 Urine Nitrite Negative (NEGATIVE) 12/24/24 15:42 Urine Bilirubin Negative (NEGATIVE) 12/24/24 15:42 Urine Urobilinogen Normal (NORMAL) 12/24/24 15:42 Ur Leukocyte Esterase Negative (NEGATIVE) 12/24/24 15:42 Plan (1) Thrombosis of right internal jugular vein: Status: Acute (2) Right leg DVT: Status: Chronic Qualifiers: Affected thrombotic vein of extremity: unspecified vein of extremity Chronicity: unspecified Qualified Code(s): I82.401 - Acute embolism and thrombosis of unspecified deep veins of right lower extremity (3) Anemia: Status: Chronic Qualifiers: Anemia type: unspecified type Qualified Code(s): D64.9 - Anemia, unspecified (4) Hypomagnesemia: Status: Acute (5) Anasarca: Status: Chronic (6) Gastrointestinal stromal tumor: Status: Chronic
--- NOTE | 2024-12-26 12:13 | DR.CONSULT ---
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 Also at that time he had required resection of 2 areas of small bowel anastomosis. Postprocedure he is on some type of immunotherapy. He was diagnosed with a DVT of the right lower extremity several months ago and placed on Eliquis. Presents now with swelling of the right arm and upper face and the right leg. Evaluated in the emergency room. Ultrasounds showed nonocclusive thrombus of the internal jugular vein on the right and the right lower extremity primary of the posterior tibial vein. Past Medical History Past Medical History: Arthritis, Diabetes, GERD, Hypertension and Sleep Apnea Past Surgical History Surgical History: Other (Resection of left colon gastrointestinal stromal tumor and resection of 2 areas of small the small bowel several months ago.) Family History Family Medical History: Diabetes Mellitus Social History Does patient currently use any type of tobacco product: No Have you used tobacco products in the last 12 months: No Type of Tobacco Use: None Does any household member use tobacco: No Alcohol Use: None Drug Use: None Medications Home Medications: No Known Drug Allergies Allergy (Unknown, Verified 09/09/24 11:07) CONTINUE taking the following medications aspirin 81 mg tablet,delayed release 81 mg PO QDAY 12/24/24 [History] diclofenac sodium 1 % topical gel 2 g topical BID 12/24/24 [History] docusate sodium 100 mg capsule 100 mg PO QDAY PRN 12/24/24 [History] ondansetron HCl 4 mg tablet 4 mg PO TID PRN Nausea And Vomiting 12/24/24 [History] simvastatin 40 mg tablet 40 mg PO HS 12/24/24 [History] torsemide 5 mg tablet 5 mg PO QDAY edema 12/24/24 [History] Review of Systems Constitutional: See HPI Eyes: No Symptoms Reported ENT: No Symptoms Reported Respiratory: No Symptoms Reported Cardiovascular: See HPI Gastrointestinal: See HPI Genitourinary: No Symptoms Reported Musculoskeletal: No Symptoms Reported Skin: No Symptoms Reported Neurological: No Symptoms Reported Physical Exam Vital Signs: Vital Signs Temperature 99.0 F Pulse Rate [Right] 82 Respiratory Rate 18 Blood Pressure [Left Arm] 108/52 O2 Sat by Pulse Oximetry 92 Oriented: Normal, Time, Person and Place Eyes: Normal Ear: Normal Nose: Normal Throat: Normal Respiratory: Clear Throughout Cardiovascular: Normal : Normal Auscultation: Bowel Sounds: Normal Palpation: Normal and Other (Healed midline abdominal incision) Tenderness: Normal Skin: Other (Swelling and edema right arm and right face and neck. Swollen right leg compared to the left) Plan (1) Thrombosis of right internal jugular vein: Status: Acute Plan: Continue Eliquis for now. Plan thrombolysis with tPA of the internal jugular clot. May try to attempt thrombolysis versus angioplasty of the right femoral vein or popliteal vein. Risk and benefits discussed with the patient and his family. (2) Right leg DVT: Status: Chronic Qualifiers: Affected thrombotic vein of extremity: unspecified vein of extremity Chronicity: unspecified Qualified Code(s): I82.401 - Acute embolism and thrombosis of unspecified deep veins of right lower extremity Plan: See above (3) Anemia: Status: Chronic Qualifiers: Anemia type: unspecified type Qualified Code(s): D64.9 - Anemia, unspecified (4) Hypomagnesemia: Status: Acute (5) Anasarca: Status: Chronic (6) Gastrointestinal stromal tumor: Status: Chronic
[2024-12-26 13:30] LABS: HEMATOCRIT 24.5 % (42.0-54.0); HEMOGLOBIN 8.1 g/dL (13.5-18.0)
--- NOTE | 2024-12-26 14:12 | RAD ---
EXAM:CHEST, 1 VIEWHISTORY:R/O CHF;COMPARISON:Prior study or studies were utilized for comparison during interpretation with the most relevant dated 12/24/2024TECHNIQUE:CHEST, 1 VIEWFINDINGS:Chest:Lines and tubes: Cardiac leads overlie the chest.Mediastinum: Cardiomegaly.Pulmonary vessels: Pulmonary vasculature is prominent.Lung fowler: No suspicious airspace opacity.Pleura: No effusion. No pneumothorax.Bones and soft tissues: No acute osseous or soft tissue abnormality.IMPRESSION:1. Findings suggest heart failure exacerbationTHIS IS AN ELECTRONICALLY VERIFIED FINAL REPORT12/26/2024 2:09 PM - Electronically signed by Zeke Sanders MD
--- NOTE | 2024-12-26 15:41 | DR.UPDATE ---
H&P Update Prescription drug monitoring program results: PDMP was not reviewed H&P Reviewed: Yes Any changes to H&P?: No Patient was examined?: Yes Vital Signs: Temp Pulse Pulse Resp BP BP BP 12/26/24 12:00 98.4 F 81 18 111/53 12/26/24 08:56 12/26/24 07:00 12/26/24 07:54 99.0 F 82 18 108/52 12/26/24 04:00 98.2 F 84 21 118/57 12/26/24 04:50 12/26/24 00:00 98.1 F 86 21 98/70 12/25/24 19:00 12/25/24 20:32 12/25/24 19:40 99.1 F 92 H 17 115/59 12/25/24 16:00 98.3 F 86 19 114/56 12/25/24 11:39 97.2 F L 98 H 20 129/68 12/25/24 07:00 12/25/24 07:40 97.2 F L 68 19 119/58 12/25/24 04:00 98.0 F 76 19 115/62 12/25/24 04:00 98.0 F 76 19 115/62 12/25/24 00:00 98.2 F 81 18 136/64 12/25/24 00:00 98.2 F 81 18 136/64 12/24/24 19:00 12/24/24 20:49 12/24/24 20:00 98.4 F 82 22 121/56 12/24/24 18:07 12/24/24 15:40 12/24/24 15:55 98 F 87 18 133/58 12/24/24 15:00 126/61 12/24/24 14:44 12/24/24 14:31 84 12/24/24 14:31 137/60 12/24/24 14:30 84 12/24/24 14:29 83 12/24/24 14:32 84 19 137/60 12/24/24 12:00 88 12/24/24 11:45 82 12/24/24 11:31 110/61 12/24/24 11:31 81 12/24/24 11:15 84 12/24/24 11:00 82 12/24/24 11:00 123/56 12/24/24 10:55 81 12/24/24 11:10 98.4 F 12/24/24 10:16 99.3 F 92 H 20 112/54 Pulse Ox O2 Del Method O2 Flow Rate FiO2 12/26/24 12:00 100 Room Air 12/26/24 08:56 Room Air 2 12/26/24 07:00 Nasal Cannula 2 12/26/24 07:54 92 L Room Air 12/26/24 04:00 93 L Room Air 12/26/24 04:50 Nasal Cannula 2 12/26/24 00:00 96 Room Air 12/25/24 19:00 Room Air 12/25/24 20:32 Room Air 12/25/24 19:40 94 L Room Air 12/25/24 16:00 94 L Room Air 12/25/24 11:39 95 Room Air 12/25/24 07:00 Room Air 12/25/24 07:40 93 L Room Air 12/25/24 04:00 94 L Room Air 12/25/24 04:00 94 L Room Air 12/25/24 00:00 94 L Room Air 12/25/24 00:00 94 L Room Air 12/24/24 19:00 Room Air 12/24/24 20:49 Room Air 12/24/24 20:00 95 Room Air 12/24/24 18:07 Room Air 12/24/24 15:40 Room Air 12/24/24 15:55 97 Room Air 12/24/24 15:00 12/24/24 14:44 97 12/24/24 14:31 98 12/24/24 14:31 12/24/24 14:30 97 12/24/24 14:29 97 12/24/24 14:32 99 Room Air 12/24/24 12:00 96 12/24/24 11:45 92 L 12/24/24 11:31 12/24/24 11:31 93 L 12/24/24 11:15 98 12/24/24 11:00 97 12/24/24 11:00 12/24/24 10:55 98 12/24/24 11:10 12/24/24 10:16 93 L Room Air Procedures (ALL) - Central Line Placement PCM.CLCO: written consent Time out performed: Yes Patient placed pm monitor/pulse ox: Yes MD prep: mask, gown, gloves, other Centrial line prep: chlorhexidine scrub, sterile drapes applied Local anesthsia used: lidocane 1% Ultrasound used for placement: Yes (left basilic id'd via u/s and cannulation vis) Central line lumen ininserted: double (5.5fr arrow picc. 50cm cath with 6cm exposed) Post procedure: good blood return, sterile dressing applied Post procedure xray: tip oc catheter in good position (appears svc, radiology report pending) Patient tolerated procedure: Yes Complications: none
--- NOTE | 2024-12-26 16:19 | RAD ---
EXAM: CHEST, 1 VIEW HISTORY: picc line placement; HX: HTN, DM COMPARISON: 12/26/2024 at 1258 hours TECHNIQUE: AP portable FINDINGS: Left upper extremity PICC tip over the low SVC. Stable prominent cardiac silhouette. Mild increased hazy bibasilar opacities with suspected small pleural effusions. No visible pneumothorax. IMPRESSION: 1. Left upper extremity PICC tip over the low SVC. 2. Increased hazy bibasilar opacities and suspected layering pleural effusions. THIS IS AN ELECTRONICALLY VERIFIED FINAL REPORT 12/26/2024 4:15 PM - Electronically signed by Pepe Mendez MD
--- NOTE | 2024-12-26 23:33 | NOTE.SOAP ---
Soap Note Note for Day of Date of Exam: 12/26/24 Subjective Data Subjective Data: Patient with gastrointestinal stromal tumor and now with nonocclusive thrombus of the right internal jugular vein with swelling of the right arm and neck. Known to have old DVT of the right posterior tibial vein. Objective Data Temperature: 98.5 F Pulse Rate: 83 Respiratory Rate: 20 Blood Pressure: 130/65 O2 Sat by Pulse Oximetry: 100 Objective Data: Swelling of the right arm greater than the left arm. Mild swelling of the right neck and face. Increased swelling of the right leg compared to the left leg. Assessment Assessment: Plan EKOS catheter thrombolysis of the internal jugular vein thrombus tomorrow. Plan Plan: As above
[2024-12-27 06:15] LABS: BASOPHILS % (AUTO) 0.3 % (0.2-1.0); EOSINOPHILS # (AUTO) 0.1 x10^3/uL (0.0-0.2); EOSINOPHILS % (AUTO) 0.8 % (0.9-2.9); HEMATOCRIT 21.6 % (42.0-54.0); HEMOGLOBIN 7.1 g/dL (13.5-18.0); LYMPHOCYTES # (AUTO) 2.4 X10^3/uL (1.3-2.9); MEAN CORPUSCULAR HEMOGLOBIN 32.9 pg (27.0-34.0); MEAN CORPUSCULAR VOLUME 99.9 fL (80.0-100.0); MEAN PLATELET VOLUME 8.6 fL (7.4-11.0); MONOCYTES # (AUTO) 0.5 x10^3/uL (0.3-0.8); MONOCYTES % (AUTO) 6.6 % (0.0-13.0); NEUTROPHILS # (AUTO) 4.7 x10^3/uL (2.2-4.8); NEUTROPHILS % (AUTO) 61.3 % (42.0-75.0); PLATELET COUNT 170 X10^3/uL (150.0-450.0); RED BLOOD COUNT 2.16 X10^6/uL (4.7-6.0); RED CELL DISTRIBUTION WIDTH 13.8 % (11.6-16.5); WHITE BLOOD COUNT 7.7 X10^3/uL (3.6-10.0)
[2024-12-27 06:30] LABS: ALANINE AMINOTRANSFERASE 33 Units/L (12-78); ALBUMIN 2.9 g/dL (3.4-5.0); ALKALINE PHOSPHATASE 26 Units/L (46-116); ASPARTATE AMINO TRANSFERASE 22 Units/L (15-37); BLOOD UREA NITROGEN 23 mg/dL (7-18); CALCIUM 8.7 mg/dL (8.5-10.1); CARBON DIOXIDE 31.2 mmol/L (21-32); CHLORIDE 106 mmol/L (98-107); COR CA(FOR HYPOALB) 9.6 mg/dL (8.5-10.1); CREATININE 1.23 mg/dL (0.70-1.30); GLUCOSE 87 mg/dL (65-99); MAGNESIUM 1.5 mg/dL (2.0-2.9); POTASSIUM 4.4 mmol/L (3.5-5.1); SODIUM 143 mmol/L (136-145); TOTAL PROTEIN 5.4 g/dL (6.4-8.2); eGFR NON BLACK RACES > 60 (>60)
[2024-12-27] MEDS: MAGNESIUM SULFATE 1 GRAM/100 mL PREMIX 1 G/100 ML BAG IV SCH (09:54)
[2024-12-27] MEDS: NS 1,000 ML IV 1,000 ML ONE ×2 (10:50→11:13)
--- NOTE | 2024-12-27 10:52 | PCM.PROG ---
Progress Note Progress Note for Day of Date of Exam: 12/27/24 Subjective Subjective: Patient seen at bedside, no acute events overnight. He is feeling about the same. He is scheduled to have EKOS procedure today for the internal jugular vein DVT. His right arm and leg are still swollen. Hgb is 7.1 today. Denies active bleeding. He had PICC line place yesterday. Labs/imaging reviewed: -Hgb 7.1 WBC 7.7 K 4.4 BUN/Cr 23/1.23 Mag 1.5 -CXR: left PICC line, b/l opacities - Venous US results reviewed Plan: Follow vascular recommendations. Plan for EKOS today. Eliquis held, NPO. Continue current treatment. Transfuse 1 unit PRBCs. Continue home medications. Replace electrolytes as per protocol. Monitor AM labs/imaging. Past Medical Family Social History Allergies: Allergies No Known Drug Allergies Allergy (Unknown, Verified 09/09/24 11:07) Onset Date: 04/16/2012 Vital Signs and I&O's Vital Signs: Vital Signs Temperature 98.6 F Temperature 98.0 F Pulse Rate [Right] 80 Pulse Rate [Right] 95 Respiratory Rate 17 Respiratory Rate 15 Blood Pressure [Left Thigh] 115/57 Blood Pressure [Left Thigh] 176/73 O2 Sat by Pulse Oximetry 96 O2 Sat by Pulse Oximetry 100 Intake and Output: Intake & Output 12/24/24 12/25/24 12/26/24 12/27/24 23:59 23:59 23:59 23:59 Intake Total 420 / 420 260 / 260 760 / 760 10 / 10 Output Total 100 / 100 400 / 400 600 / 600 250 / 250 Balance 320 / 320 -140 / -140 160 / 160 -240 / -240 Physical Exam Oriented: Normal, Time, Person and Place Eyes: Normal Ear: Normal Nose: Normal Throat: Normal Cardiovascular: Normal Auscultation: Bowel Sounds: Normal Palpation: Normal Tenderness: Normal Skin: Other (Swelling and edema right arm and right face and neck. Swollen right leg compared to the left) Musculoskeletal: Right (RUE, RLE edema) Psychiatric: Normal Mood Description: Calm and Appropriate Affect: Normal Speech Pattern: Clear and Appropriate Laboratory and Diagnostics 12/27/24 05:11 12/27/24 05:11 Labs: Laboratory WBC 7.7 X10^3/uL (3.6-10.0) 12/27/24 05:11 RBC 2.16 X10^6/uL (4.7-6.0) L 12/27/24 05:11 Hgb 7.1 g/dL (13.5-18.0) L 12/27/24 05:11 Hct 21.6 % (42.0-54.0) L 12/27/24 05:11 MCV 99.9 fL (80.0-100.0) 12/27/24 05:11 MCH 32.9 pg (27.0-34.0) 12/27/24 05:11 MCHC 33.0 g/dL (33.0-35.0) 12/27/24 05:11 RDW 13.8 % (11.6-16.5) 12/27/24 05:11 Plt Count 170 X10^3/uL (150.0-450.0) 12/27/24 05:11 MPV 8.6 fL (7.4-11.0) 12/27/24 05:11 Neut % (Auto) 61.3 % (42.0-75.0) 12/27/24 05:11 Lymph % (Auto) 31.0 % (21.0-51.0) 12/27/24 05:11 [place] % (Auto) 6.6 % (0.0-13.0) 12/27/24 05:11 Eos % (Auto) 0.8 % (0.9-2.9) L 12/27/24 05:11 Baso % (Auto) 0.3 % (0.2-1.0) 12/27/24 05:11 Neut # (Auto) 4.7 x10^3/uL (2.2-4.8) 12/27/24 05:11 Lymph # (Auto) 2.4 X10^3/uL (1.3-2.9) 12/27/24 05:11 [place] # (Auto) 0.5 x10^3/uL (0.3-0.8) 12/27/24 05:11 Eos # (Auto) 0.1 x10^3/uL (0.0-0.2) 12/27/24 05:11 Baso # (Auto) 0.0 X10^3/uL (0.0-0.1) 12/27/24 05:11 Absolute Nucleated RBC 0.1 /100WBC 12/27/24 05:11 Sodium 143 mmol/L (136-145) 12/27/24 05:11 Corrected Sodium TNP 12/27/24 05:11 Potassium 4.4 mmol/L (3.5-5.1) 12/27/24 05:11 Chloride 106 mmol/L (98-107) 12/27/24 05:11 Carbon Dioxide 31.2 mmol/L (21-32) 12/27/24 05:11 BUN 23 mg/dL (7-18) H 12/27/24 05:11 Creatinine 1.23 mg/dL (0.70-1.30) 12/27/24 05:11 Est GFR (MDRD) Af Amer > 60 (>60) 12/27/24 05:11 Est GFR (MDRD) Non-Af > 60 (>60) 12/27/24 05:11 Glucose 87 mg/dL (65-99) 12/27/24 05:11 POC Glucose (mg/dL) 89 mg/dL (65-99) 12/27/24 05:24 Calcium 8.7 mg/dL (8.5-10.1) 12/27/24 05:11 Corrected Calcium 9.6 mg/dL (8.5-10.1) 12/27/24 05:11 Magnesium 1.5 mg/dL (2.0-2.9) L 12/27/24 05:11 Total Bilirubin 0.50 mg/dL (0.2-1.0) 12/27/24 05:11 AST 22 Units/L (15-37) 12/27/24 05:11 ALT 33 Units/L (12-78) 12/27/24 05:11 Alkaline Phosphatase 26 Units/L (46-116) L 12/27/24 05:11 B-Natriuretic Peptide 26.9 pg/mL (0-79) 12/26/24 13:15 Total Protein 5.4 g/dL (6.4-8.2) L 12/27/24 05:11 Albumin 2.9 g/dL (3.4-5.0) L 12/27/24 05:11 Globulin 2.5 g/dL (2.5-4.5) 12/27/24 05:11 Albumin/Globulin Ratio 1.2 Ratio (1.1-2.1) 12/27/24 05:11 Specimen Type Clean catch urine 12/24/24 15:42 Urine Color Pale yellow (YELLOW) 12/24/24 15:42 Urine Appearance Clear (CLEAR) 12/24/24 15:42 Urine pH 6.0 (5.0 - 8.0) 12/24/24 15:42 Ur Specific [place] 1.015 (1.000-1.030) 12/24/24 15:42 Urine Protein Negative (NEGATIVE) 12/24/24 15:42 Urine Glucose (UA) Negative (NEGATIVE) 12/24/24 15:42 Urine Ketones Negative (NEGATIVE) 12/24/24 15:42 Urine Blood Negative (NEGATIVE) 12/24/24 15:42 Urine Nitrite Negative (NEGATIVE) 12/24/24 15:42 Urine Bilirubin Negative (NEGATIVE) 12/24/24 15:42 Urine Urobilinogen Normal (NORMAL) 12/24/24 15:42 Ur Leukocyte Esterase Negative (NEGATIVE) 12/24/24 15:42 Blood Type O POSITIVE 12/27/24 08:33 Antibody Screen Negative 12/27/24 08:33 Crossmatch See Detail 12/27/24 08:33 Plan (1) Thrombosis of right internal jugular vein: Status: Acute (2) Right leg DVT: Status: Chronic Qualifiers: Affected thrombotic vein of extremity: unspecified vein of extremity Chronicity: unspecified Qualified Code(s): I82.401 - Acute embolism and thrombosis of unspecified deep veins of right lower extremity (3) Anemia: Status: Chronic Qualifiers: Anemia type: unspecified type Qualified Code(s): D64.9 - Anemia, unspecified (4) Hypomagnesemia: Status: Acute (5) Anasarca: Status: Chronic (6) Gastrointestinal stromal tumor: Status: Chronic
[2024-12-27] MEDS: DUONEB 0.5 MG/3 MG (3 mL) NEB ONE (10:55)
[2024-12-27] MEDS: GLUCOPHAGE ONE (10:56)
[2024-12-27] MEDS: NOZIN NASAL SANITIZER TP ONE (11:01)
[2024-12-27] MEDS: HIBICLENS WASH EXT ONE (11:01)
[2024-12-27] MEDS: HIBICLENS WASH ONE (11:03)
[2024-12-27] MEDS: CONSULT PHARMACY - POTASSIUM & MAGNESIUM XX SCH (11:05)
[2024-12-27] MEDS ORDERED: PRECEDEX INJ VIAL ONE (13:00)
[2024-12-27] MEDS: ANCEF VIAL 1 GRAM ONE (13:00)
[2024-12-27] MEDS ORDERED: KETAMINE HCL ONE (13:00)
[2024-12-27] MEDS: VERSED IVP PRN (13:00)
[2024-12-27] MEDS: NS 100 ML IV 100 ML ONE (13:00)
[2024-12-27] MEDS: ANCEF VIAL 1 GRAM IV PRN (13:02)
[2024-12-27] MEDS: NS 1,000 ML IV 100 ML IV PRN (13:05)
[2024-12-27] MEDS: PRECEDEX INJ VIAL IVP PRN (13:08)
[2024-12-27] MEDS: KETAMINE HCL IV PRN (13:08)
[2024-12-27] MEDS: DIPRIVAN IVP PRN (13:08)
[2024-12-27] MEDS: VISIPAQUE 50 ML ONE (13:26)
[2024-12-27] MEDS: HEPARIN 1,000 UNIT/500 ML-NS 3,000 UNIT/1,500 ML IV.SOLN ONE (13:26)
[2024-12-27] MEDS: MARCAINE 0.5% ONE (13:26)
[2024-12-27] MEDS: VISIPAQUE 100 ML ONE (13:26)
[2024-12-27 13:34] LABS: BILIRUBIN,URINE NEGATIVE (NEGATIVE); BLOOD/HEMOGLOBIN,URINE 4+ (NEGATIVE); GLUCOSE, URINE NEGATIVE (NEGATIVE); KETONES,URINE NEGATIVE (NEGATIVE); LEUKOCYTE ESTERASE ,URINE NEGATIVE (NEGATIVE); NITRITES,URINE NEGATIVE (NEGATIVE); PROTEIN,URINE NEGATIVE (NEGATIVE); UROBILINOGEN,URINE NORMAL (NORMAL)
[2024-12-27 13:46] LABS: APPEARANCE,URINE CLEAR (CLEAR); COLOR,URINE PALE YELLOW (YELLOW)
[2024-12-27 13:48] LABS: BACTERIA,URINE NEGATIVE /HPF (NEGATIVE); SQUAMOUS EPITHELIAL CELL,UR RARE /HPF (NEGATIVE)
[2024-12-27] MEDS: HEPARIN SODIUM INJ 5000 UNITS IVP PRN (14:25)
[2024-12-27] MEDS: PROTAMINE SULFATE 50 MG VIAL IVP PRN (14:36)
[2024-12-27] MEDS ORDERED: ZOFRAN INJ 4 MG VIAL IVP PRN (14:38)
--- NOTE | 2024-12-27 15:20 | OR.IMMED ---
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 Brachial vein approach from the right arm. Approach also from the left groin Description of Procedure: Dictated Surgeon/Clasp Machine Operator: Dr. Doug Edmond Findings: As above Estimated Blood Loss: 150 cc Complications: None Progress Notes: Discussed with Dr. Rowell by phone, ICU bed had been up appropriated in anticipation of tPA but they gave his bed away as he will be in ICU. I left a Moya catheter in place because of blood in his urine. Culture pending. May require outside consultation to consider revascularization of the superior vena cava and branches
[2024-12-27] MEDS: PRECEDEX INJ VIAL ONE (16:57)
[2024-12-27] MEDS: VERSED ONE (16:57)
[2024-12-27] MEDS: NS 500 ML IV 500 ML IV ONE (16:57)
[2024-12-27] MEDS: DIPRIVAN VIAL 20 ML ONE ×2 (16:57→16:58)
[2024-12-27] MEDS: PROTAMINE SULFATE 50 MG VIAL ONE (16:58)
[2024-12-27] MEDS: HEPARIN SODIUM INJ 5000 UNITS ONE (16:58)
[2024-12-27] MEDS ORDERED: GLUCOPHAGE ONE (17:18)
[2024-12-27] MEDS: DECADRON INJ IVP PRN (19:18)
[2024-12-27 19:42] LABS: HEMATOCRIT 21.3 % (42.0-54.0); HEMOGLOBIN 7.1 g/dL (13.5-18.0)
[2024-12-27] MEDS: ELIQUIS PO SCH (21:37)
[2024-12-27] MEDS: MAGNESIUM SULFATE 1 GRAM/100 mL PREMIX 1 G/100 ML BAG IV ONE (21:38)
[2024-12-28] MEDS: NovoLIN R (or HumuLIN R) SUBCUT PRN (05:52)
[2024-12-28 05:59] LABS: BASOPHILS % (AUTO) 0.1 % (0.2-1.0); HEMATOCRIT 25.1 % (42.0-54.0); HEMOGLOBIN 8.3 g/dL (13.5-18.0); LYMPHOCYTES # (AUTO) 0.3 X10^3/uL (1.3-2.9); LYMPHOCYTES % (AUTO) 3.7 % (21.0-51.0); MEAN CORPUSCULAR HEMOGLOBIN 32.9 pg (27.0-34.0); MEAN CORPUSCULAR HGB CONC 33.2 g/dL (33.0-35.0); MEAN CORPUSCULAR VOLUME 98.9 fL (80.0-100.0); MEAN PLATELET VOLUME 8.8 fL (7.4-11.0); MONOCYTES # (AUTO) 0.1 x10^3/uL (0.3-0.8); MONOCYTES % (AUTO) 0.9 % (0.0-13.0); NEUTROPHILS # (AUTO) 8.5 x10^3/uL (2.2-4.8); NEUTROPHILS % (AUTO) 95.3 % (42.0-75.0); PLATELET COUNT 160 X10^3/uL (150.0-450.0); RED BLOOD COUNT 2.54 X10^6/uL (4.7-6.0); RED CELL DISTRIBUTION WIDTH 14.2 % (11.6-16.5); WHITE BLOOD COUNT 8.9 X10^3/uL (3.6-10.0)
[2024-12-28 06:10] LABS: ALANINE AMINOTRANSFERASE 32 Units/L (12-78); ALBUMIN 2.9 g/dL (3.4-5.0); ALKALINE PHOSPHATASE 29 Units/L (46-116); ASPARTATE AMINO TRANSFERASE 24 Units/L (15-37); BLOOD UREA NITROGEN 21 mg/dL (7-18); CALCIUM 8.7 mg/dL (8.5-10.1); CARBON DIOXIDE 30.5 mmol/L (21-32); CHLORIDE 105 mmol/L (98-107); COR CA(FOR HYPOALB) 9.6 mg/dL (8.5-10.1); COR NA(FOR HYPERGLY) 143 mmol/L (136-145); GLUCOSE 214 mg/dL (65-99); MAGNESIUM 1.9 mg/dL (2.0-2.9); SODIUM 140 mmol/L (136-145); TOTAL PROTEIN 5.6 g/dL (6.4-8.2); eGFR NON BLACK RACES > 60 (>60)
[2024-12-28 06:41] LABS: PLATELET MORPHOLOGY COMMENT NORMAL (NORMAL)
[2024-12-28] MEDS ORDERED: GLUCOPHAGE ONE (08:15)
--- NOTE | 2024-12-28 10:00 | NOTE.SOAP ---
Soap Note Note for Day of Date of Exam: 12/28/24 Subjective Data Subjective Data: Status post venogram of right subclavian vein, internal jugular vein on the right and superior vena cava showing chronic disease and occlusion/stenosis. Unable to treat with balloon or stent. Patient has been stable except for some swelling of the tongue last night which has responded to IV dexamethasone. Still with swelling of the neck and face as expected. Tongue swelling is resolved. Objective Data Temperature: 99.0 F Pulse Rate: 81 Respiratory Rate: 14 Blood Pressure: 125/61 O2 Sat by Pulse Oximetry: 100 Objective Data: Swelling resolved left tongue. Still with swelling of the face and neck. Puncture sites of the right arm and right groin are without problem. 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
--- NOTE | 2024-12-28 10:31 | DR.OPNOTE ---
OP NOTE Pre-Op Diagnosis: Right internal jugular vein thrombosis Post-Op Diagnosis: See findings Procedure Date Date Of Procedure: 12/27/24 Procedure: PROCEDURE: Venous access of the right femoral vein and right brachial vein with venogram of the right ventricle, venogram of the right jugular vein, venogram of the right internal jugular vein and superior vena cava NARRATIVE: The patient was taken to the operative suite and placed in the supine position. The right groin prepped and draped in sterile fashion. The patient given intravenous sedation supervised by myself. Timeout for the procedure obtained. Ultrasound used to identify the right femoral vein and the skin overlying it infiltrated with 0.5% Marcaine. Ultrasound used to guide puncture of the right femoral vein and a 0.012 inch guidewire placed. Incision made over the guidewire with a #11 knife blade and a micro sheath placed over the guidewire into the vein. Small guidewire exchanged for a 0.035 inch guidewire and the micro sheath exchanged for a 10 [place] vascular sheath. The guide was taken all the way to the heart and Bradley catheter placed over this with contrast injected showing normal right atrium and right ventricle. With some difficulty we tried to pass the wire into the internal jugular vein but was unsuccessful. We got the Bradley cath as close as possible and venogram showed the internal jugular vein and the superior vena cava to be occluded versus s everely stenotic. At this point we prepped the right arm and ultrasound used to identify the right brachial vein and ultrasound used to guide puncture the right brachial vein and incision made over the guidewire and the micro sheath placed. Microsheath exchanged for a 9 [place] vascular sheath. Venogram carried out showing occluded proximal subclavian vein. I was unable to get a wire across this. At this point i elected to stop.. Patient be given 5000 units of heparin to begin the case. The sheaths in the groin and right arm were removed and direct pressure held over each site. Patient taken to the CCU for continued recovery. 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 tolerated procedure without difficulty. Taken to PACU in stable condition.
[2024-12-28] MEDS: NORCO 10/325 TAB PO PRN (12:32)
[2024-12-28 14:44] VITALS: O2SAT 92
[2024-12-28 16:12] VITALS: BP 103/54; PULSE 79; RESP 18; TEMP 99.4
--- NOTE | 2025-01-03 10:58 | W.DIS.FURT ---
Summary of Discharge Discharge Summary of Date Date of Exam: 12/28/24 Admission Date Date of Admission: 12/24/24 Admission Diagnosis Patient Problems (Updated 01/02/25 @ 16:39 by Doug Edmond) Anasarca (Chronic) R60.1 Swelling of right elbow (Acute) M25.421 Right leg swelling (Acute) M79.89 Conjunctivitis (Acute) H10.9 Angioedema (Acute) T78.3XXA SOB (shortness of breath) (Acute) R06.02 Hospital Course: Patient is a 79-year-old male with a past medical history of hypertension, diabetes, arthritis, presenting with right upper extremity and lower extremity edema. Patient states there is noticed that for the past few days. Labs/imaging: WBC 9, hemoglobin 8.2, platelets 176, sodium 142, potassium 3.9, creatinine 1.51, glucose 131. Venous duplex was obtained that revealed a nonocclusive thrombus right internal jugular vein as well as a right posterior tibial vein. Patient has been on Eliquis for right lower extremity DVT. It is unclear if he has been actually compliant with taking medications consistently. Eliquis has been started here in the hospital. Vascular surgery was consulted and recommended thrombolysis with tPA. Patient's labs were monitored daily and electrolytes replaced as needed. 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 He will need to see a specialized vascular surgery for intervention. He was stable for discharge on Eliquis. He will f/u with Dr Edmond outpatient and be referred to vascular specialist. His arm and leg edema had improved during admission. Vital Signs: Vital Signs (72 hours) 12/26/24 23:33 12/28/24 10:00 12/25/24 16:00 Temperature 98.5 F 99.0 F 98.3 F Pulse Rate 83 81 Pulse Rate [Right] 86 Respiratory Rate 20 14 19 Blood Pressure 130/65 125/61 Blood Pressure [Left Arm] 114/56 Blood Pressure [Left Thigh] O2 Sat by Pulse Oximetry 100 100 94 L Oxygen Delivery Method Room Air Oxygen Flow Rate FIO2% 12/25/24 19:40 12/25/24 20:32 12/25/24 19:00 Temperature 99.1 F Pulse Rate Pulse Rate [Right] 92 H Respiratory Rate 17 Blood Pressure Blood Pressure [Left Arm] 115/59 Blood Pressure [Left Thigh] O2 Sat by Pulse Oximetry 94 L Oxygen Delivery Method Room Air Room Air Room Air Oxygen Flow Rate FIO2% 12/26/24 00:00 12/26/24 04:50 12/26/24 04:00 Temperature 98.1 F 98.2 F Pulse Rate Pulse Rate [Right] 86 84 Respiratory Rate 21 21 Blood Pressure Blood Pressure [Left Arm] 98/70 118/57 Blood Pressure [Left Thigh] O2 Sat by Pulse Oximetry 96 93 L Oxygen Delivery Method Room Air Nasal Cannula Room Air Oxygen Flow Rate 2 FIO2% 28 12/26/24 07:54 12/26/24 07:00 12/26/24 08:56 Temperature 99.0 F Pulse Rate Pulse Rate [Right] 82 Respiratory Rate 18 Blood Pressure Blood Pressure [Left Arm] 108/52 Blood Pressure [Left Thigh] O2 Sat by Pulse Oximetry 92 L Oxygen Delivery Method Room Air Nasal Cannula Room Air Oxygen Flow Rate 2 2 FIO2% 28 12/26/24 12:00 12/26/24 16:00 12/26/24 19:00 Temperature 98.4 F 99.0 F Pulse Rate Pulse Rate [Right] 81 83 Respiratory Rate 18 18 Blood Pressure Blood Pressure [Left Arm] 111/53 111/56 Blood Pressure [Left Thigh] O2 Sat by Pulse Oximetry 100 96 Oxygen Delivery Method Room Air Room Air Room Air Oxygen Flow Rate FIO2% 12/26/24 20:00 12/27/24 00:00 12/27/24 04:00 Temperature 98.5 F 98.3 F 98.0 F Pulse Rate Pulse Rate [Right] 83 81 95 H Respiratory Rate 20 16 15 Blood Pressure Blood Pressure [Left Arm] Blood Pressure [Left Thigh] 130/65 140/63 176/73 O2 Sat by Pulse Oximetry 100 93 L 100 Oxygen Delivery Method Room Air Room Air Room Air Oxygen Flow Rate FIO2% 21 12/26/24 20:55 12/27/24 07:53 12/27/24 07:00 Temperature 98.6 F Pulse Rate Pulse Rate [Right] 80 Respiratory Rate 17 Blood Pressure Blood Pressure [Left Arm] Blood Pressure [Left Thigh] 115/57 O2 Sat by Pulse Oximetry 96 Oxygen Delivery Method Nasal Cannula Room Air Room Air Oxygen Flow Rate 2 FIO2% 28 12/27/24 09:56 12/27/24 11:00 12/27/24 14:45 Temperature 98.3 F Pulse Rate 78 91 H Pulse Rate [Right] Respiratory Rate 16 16 Blood Pressure 128/62 114/59 Blood Pressure [Left Arm] Blood Pressure [Left Thigh] O2 Sat by Pulse Oximetry 99 92 L Oxygen Delivery Method Nasal Cannula Nasal Cannula Venturi Mask Oxygen Flow Rate 3 FIO2% 32 12/27/24 14:55 12/27/24 15:00 12/27/24 15:33 Temperature 98.3 F Pulse Rate 89 86 80 Pulse Rate [Right] Respiratory Rate 16 16 15 Blood Pressure 113/59 121/58 128/68 Blood Pressure [Left Arm] Blood Pressure [Left Thigh] O2 Sat by Pulse Oximetry 95 95 Oxygen Delivery Method Venturi Mask Nasal Cannula Oxygen Flow Rate FIO2% 12/27/24 16:06 12/27/24 15:11 12/27/24 16:55 Temperature 98.2 F Pulse Rate 77 82 73 Pulse Rate [Right] Respiratory Rate 13 18 12 Blood Pressure 133/76 125/65 119/59 Blood Pressure [Left Arm] Blood Pressure [Left Thigh] O2 Sat by Pulse Oximetry 98 Oxygen Delivery Method Oxygen Flow Rate FIO2% 12/27/24 16:15 12/27/24 16:31 12/27/24 15:22 Temperature 98.2 F Pulse Rate 75 72 81 Pulse Rate [Right] Respiratory Rate 11 L 13 14 Blood Pressure 117/66 100/67 Blood Pressure [Left Arm] Blood Pressure [Left Thigh] O2 Sat by Pulse Oximetry Oxygen Delivery Method Oxygen Flow Rate FIO2% 12/27/24 15:30 12/27/24 15:30 12/27/24 15:45 Temperature Pulse Rate 82 79 Pulse Rate [Right] Respiratory Rate 14 13 Blood Pressure 128/68 Blood Pressure [Left Arm] Blood Pressure [Left Thigh] O2 Sat by Pulse Oximetry 97 98 Oxygen Delivery Method Oxygen Flow Rate FIO2% 12/27/24 15:45 12/27/24 16:00 12/27/24 16:00 Temperature 98.2 F Pulse Rate 78 Pulse Rate [Right] Respiratory Rate 13 Blood Pressure 137/74 133/76 Blood Pressure [Left Arm] Blood Pressure [Left Thigh] O2 Sat by Pulse Oximetry 99 Oxygen Delivery Method Oxygen Flow Rate FIO2% 12/27/24 16:15 12/27/24 16:15 12/27/24 16:30 Temperature Pulse Rate 75 Pulse Rate [Right] Respiratory Rate 11 L Blood Pressure 117/66 100/67 Blood Pressure [Left Arm] Blood Pressure [Left Thigh] O2 Sat by Pulse Oximetry 100 Oxygen Delivery Method Oxygen Flow Rate FIO2% 12/27/24 16:30 12/27/24 16:45 12/27/24 16:46 Temperature Pulse Rate 71 71 Pulse Rate [Right] Respiratory Rate 13 18 Blood Pressure 119/59 Blood Pressure [Left Arm] Blood Pressure [Left Thigh] O2 Sat by Pulse Oximetry 100 100 Oxygen Delivery Method Oxygen Flow Rate FIO2% 12/27/24 16:46 12/27/24 15:15 12/27/24 17:00 Temperature Pulse Rate 71 79 Pulse Rate [Right] Respiratory Rate 11 L 16 Blood Pressure 123/67 115/65 Blood Pressure [Left Arm] Blood Pressure [Left Thigh] O2 Sat by Pulse Oximetry 100 Oxygen Delivery Method Oxygen Flow Rate FIO2% 12/27/24 17:00 12/27/24 17:15 12/27/24 17:15 Temperature Pulse Rate 72 75 Pulse Rate [Right] Respiratory Rate 19 12 Blood Pressure 116/60 Blood Pressure [Left Arm] Blood Pressure [Left Thigh] O2 Sat by Pulse Oximetry 100 100 Oxygen Delivery Method Oxygen Flow Rate FIO2% 12/27/24 17:30 12/27/24 17:30 12/27/24 17:45 Temperature Pulse Rate 81 80 Pulse Rate [Right] Respiratory Rate 15 13 Blood Pressure 110/70 Blood Pressure [Left Arm] Blood Pressure [Left Thigh] O2 Sat by Pulse Oximetry 100 100 Oxygen Delivery Method Oxygen Flow Rate FIO2% 12/27/24 18:00 12/27/24 18:00 12/27/24 18:15 Temperature Pulse Rate 80 75 Pulse Rate [Right] Respiratory Rate 11 L 10 L Blood Pressure 115/61 Blood Pressure [Left Arm] Blood Pressure [Left Thigh] O2 Sat by Pulse Oximetry 100 100 Oxygen Delivery Method Oxygen Flow Rate FIO2% 12/27/24 18:30 12/27/24 18:45 12/27/24 19:00 Temperature Pulse Rate 76 80 78 Pulse Rate [Right] Respiratory Rate 15 12 11 L Blood Pressure Blood Pressure [Left Arm] Blood Pressure [Left Thigh] O2 Sat by Pulse Oximetry 100 100 100 Oxygen Delivery Method Oxygen Flow Rate FIO2% 12/27/24 19:00 12/27/24 19:00 12/27/24 19:00 Temperature Pulse Rate 78 Pulse Rate [Right] Respiratory Rate 11 L Blood Pressure 102/55 102/55 Blood Pressure [Left Arm] Blood Pressure [Left Thigh] O2 Sat by Pulse Oximetry 100 Oxygen Delivery Method Room Air Nasal Cannula Oxygen Flow Rate 3 FIO2% 12/27/24 20:00 12/27/24 21:00 12/27/24 22:00 Temperature 98.2 F Pulse Rate 78 85 80 Pulse Rate [Right] Respiratory Rate 10 L 14 17 Blood Pressure 137/76 118/62 121/62 Blood Pressure [Left Arm] Blood Pressure [Left Thigh] O2 Sat by Pulse Oximetry 100 99 100 Oxygen Delivery Method Nasal Cannula Nasal Cannula Nasal Cannula Oxygen Flow Rate 3 3 3 FIO2% 12/27/24 21:00 12/27/24 23:00 12/28/24 00:00 Temperature 98.2 F Pulse Rate 79 85 Pulse Rate [Right] Respiratory Rate 12 14 Blood Pressure 124/59 144/65 Blood Pressure [Left Arm] Blood Pressure [Left Thigh] O2 Sat by Pulse Oximetry 100 98 Oxygen Delivery Method Nasal Cannula Nasal Cannula Nasal Cannula Oxygen Flow Rate 3 3 3 FIO2% 32 12/28/24 01:00 12/28/24 02:00 12/28/24 03:00 Temperature Pulse Rate 88 89 85 Pulse Rate [Right] Respiratory Rate 14 14 13 Blood Pressure 145/67 123/60 130/61 Blood Pressure [Left Arm] Blood Pressure [Left Thigh] O2 Sat by Pulse Oximetry 100 100 100 Oxygen Delivery Method Nasal Cannula Nasal Cannula Nasal Cannula Oxygen Flow Rate 3 3 3 FIO2% 12/28/24 04:00 12/28/24 05:00 12/28/24 06:00 Temperature 99.0 F Pulse Rate 88 82 81 Pulse Rate [Right] Respiratory Rate 14 14 14 Blood Pressure 145/67 133/63 125/61 Blood Pressure [Left Arm] Blood Pressure [Left Thigh] O2 Sat by Pulse Oximetry 100 100 100 Oxygen Delivery Method Nasal Cannula Nasal Cannula Nasal Cannula Oxygen Flow Rate 3 3 3 FIO2% 12/28/24 12:32 12/28/24 07:00 12/28/24 07:00 Temperature Pulse Rate 80 Pulse Rate [Right] Respiratory Rate 15 11 L Blood Pressure 125/60 Blood Pressure [Left Arm] Blood Pressure [Left Thigh] O2 Sat by Pulse Oximetry 98 Oxygen Delivery Method Room Air Nasal Cannula Oxygen Flow Rate 3 FIO2% 12/28/24 08:00 12/28/24 09:00 12/28/24 10:00 Temperature 99.0 F Pulse Rate 99 H 80 85 Pulse Rate [Right] Respiratory Rate 22 15 15 Blood Pressure 124/59 126/59 111/55 Blood Pressure [Left Arm] Blood Pressure [Left Thigh] O2 Sat by Pulse Oximetry 99 100 100 Oxygen Delivery Method Nasal Cannula Nasal Cannula Nasal Cannula Oxygen Flow Rate 3 3 3 FIO2% 12/28/24 11:00 12/28/24 12:00 12/28/24 13:00 Temperature 98.8 F Pulse Rate 91 H 77 79 Pulse Rate [Right] Respiratory Rate 17 12 10 L Blood Pressure 113/54 107/51 99/50 Blood Pressure [Left Arm] Blood Pressure [Left Thigh] O2 Sat by Pulse Oximetry 94 L 91 L 92 L Oxygen Delivery Method Nasal Cannula Nasal Cannula Nasal Cannula Oxygen Flow Rate 3 3 3 FIO2% 12/28/24 14:00 12/28/24 13:32 Temperature Pulse Rate 80 Pulse Rate [Right] Respiratory Rate 14 18 Blood Pressure 97/53 Blood Pressure [Left Arm] Blood Pressure [Left Thigh] O2 Sat by Pulse Oximetry 92 L Oxygen Delivery Method Nasal Cannula Oxygen Flow Rate 3 FIO2% Labs: Laboratory Last Values WBC 8.9 X10^3/uL (3.6-10.0) 12/28/24 05:44 RBC 2.54 X10^6/uL (4.7-6.0) L 12/28/24 05:44 Hgb 8.3 g/dL (13.5-18.0) L 12/28/24 05:44 Hct 25.1 % (42.0-54.0) L 12/28/24 05:44 MCV 98.9 fL (80.0-100.0) 12/28/24 05:44 MCH 32.9 pg (27.0-34.0) 12/28/24 05:44 MCHC 33.2 g/dL (33.0-35.0) 12/28/24 05:44 RDW 14.2 % (11.6-16.5) 12/28/24 05:44 Plt Count 160 X10^3/uL (150.0-450.0) 12/28/24 05:44 Plt Count Comment Adequate (ADEQUATE) 12/28/24 05:44 MPV 8.8 fL (7.4-11.0) 12/28/24 05:44 Neut % (Auto) 95.3 % (42.0-75.0) H 12/28/24 05:44 Lymph % (Auto) 3.7 % (21.0-51.0) L 12/28/24 05:44 Rich % (Auto) 0.9 % (0.0-13.0) 12/28/24 05:44 Eos % (Auto) 0.0 % (0.9-2.9) L 12/28/24 05:44 Baso % (Auto) 0.1 % (0.2-1.0) L 12/28/24 05:44 Neut # (Auto) 8.5 x10^3/uL (2.2-4.8) H 12/28/24 05:44 Lymph # (Auto) 0.3 X10^3/uL (1.3-2.9) L 12/28/24 05:44 Rich # (Auto) 0.1 x10^3/uL (0.3-0.8) L 12/28/24 05:44 Eos # (Auto) 0.0 x10^3/uL (0.0-0.2) 12/28/24 05:44 Baso # (Auto) 0.0 X10^3/uL (0.0-0.1) 12/28/24 05:44 Absolute Nucleated RBC 0.0 /100WBC 12/28/24 05:44 Total Counted 100 12/28/24 05:44 Neutrophils % (Manual) 96 % (39-76) H 12/28/24 05:44 Lymphocytes % (Manual) 4 % (13-43) L 12/28/24 05:44 Plt Morphology Comment Normal (NORMAL) 12/28/24 05:44 RBC Morphology Normal (NORMAL) 12/28/24 05:44 Sodium 140 mmol/L (136-145) 12/28/24 05:44 Corrected Sodium 143 mmol/L (136-145) 12/28/24 05:44 Potassium 5.0 mmol/L (3.5-5.1) 12/28/24 05:44 Chloride 105 mmol/L (98-107) 12/28/24 05:44 Carbon Dioxide 30.5 mmol/L (21-32) 12/28/24 05:44 BUN 21 mg/dL (7-18) H 12/28/24 05:44 Creatinine 1.10 mg/dL (0.70-1.30) 12/28/24 05:44 Est GFR (MDRD) Af Amer > 60 (>60) 12/28/24 05:44 Est GFR (MDRD) Non-Af > 60 (>60) 12/28/24 05:44 Glucose 214 mg/dL (65-99) H 12/28/24 05:44 POC Glucose (mg/dL) 219 mg/dL (65-99) H 12/28/24 12:17 Calcium 8.7 mg/dL (8.5-10.1) 12/28/24 05:44 Corrected Calcium 9.6 mg/dL (8.5-10.1) 12/28/24 05:44 Magnesium 1.9 mg/dL (2.0-2.9) L 12/28/24 05:44 Total Bilirubin 0.50 mg/dL (0.2-1.0) 12/28/24 05:44 AST 24 Units/L (15-37) 12/28/24 05:44 ALT 32 Units/L (12-78) 12/28/24 05:44 Alkaline Phosphatase 29 Units/L (46-116) L 12/28/24 05:44 B-Natriuretic Peptide 26.9 pg/mL (0-79) 12/26/24 13:15 Total Protein 5.6 g/dL (6.4-8.2) L 12/28/24 05:44 Albumin 2.9 g/dL (3.4-5.0) L 12/28/24 05:44 Globulin 2.7 g/dL (2.5-4.5) 12/28/24 05:44 Albumin/Globulin Ratio 1.1 Ratio (1.1-2.1) 12/28/24 05:44 Specimen Type Catherized urine 12/27/24 13:22 Urine Color Pale yellow (YELLOW) 12/27/24 13:22 Urine Appearance Clear (CLEAR) 12/27/24 13:22 Urine pH 6.0 (5.0 - 8.0) 12/27/24 13:22 Ur Specific [place] 1.010 (1.000-1.030) 12/27/24 13:22 Urine Protein Negative (NEGATIVE) 12/27/24 13:22 Urine Glucose (UA) Negative (NEGATIVE) 12/27/24 13:22 Urine Ketones Negative (NEGATIVE) 12/27/24 13:22 Urine Blood 4+ (NEGATIVE) 12/27/24 13:22 Urine Nitrite Negative (NEGATIVE) 12/27/24 13:22 Urine Bilirubin Negative (NEGATIVE) 12/27/24 13:22 Urine Urobilinogen Normal (NORMAL) 12/27/24 13:22 Ur Leukocyte Esterase Negative (NEGATIVE) 12/27/24 13:22 Urine RBC 3-5 /HPF (0-3) A 12/27/24 13:22 Urine WBC 0-2 /HPF (0-5) 12/27/24 13:22 Ur Squamous Epith Cells Rare /HPF (NEGATIVE) 12/27/24 13:22 Urine Bacteria Negative /HPF (NEGATIVE) 12/27/24 13:22 Urine Mucus Rare /HPF (NEGATIVE) 12/27/24 13:22 Ur Culture Indicated? 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 (Acute) Thrombosis of right internal jugular vein (Acute) Anasarca (Chronic) Swelling of right elbow (Acute) Right leg swelling (Acute) Conjunctivitis (Acute) Angioedema (Acute) SOB (shortness of breath) (Acute) B12 deficiency (Acute) Edema of eyelid of both eyes (Acute) Right leg DVT (Chronic) Leg edema, right (Acute) Decreased appetite (Acute) Status post colon resection (Acute) Gastrointestinal stromal tumor (Chronic) Post-op pain (Acute) Preop cardiovascular exam (Acute) Sepsis (Acute) TED (acute kidney injury) (Acute) Cancer of sigmoid colon (Acute) Anemia (Chronic) History of CVA (cerebrovascular accident) (Acute) 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 Pt is to keep follow up appointment as instructed and take medications as ordered. Discharge Medications Discharge Medications: No Known Drug Allergies Allergy (Unknown, Verified 09/09/24 11:07) CONTINUE taking the following medications aspirin 81 mg tablet,delayed release 81 mg PO QDAY 12/24/24 [History] diclofenac sodium 1 % topical gel 2 g topical BID 12/24/24 [History] docusate sodium 100 mg capsule 100 mg PO QDAY PRN 12/24/24 [History] ondansetron HCl 4 mg tablet 4 mg PO TID PRN Nausea And Vomiting 12/24/24 [History] simvastatin 40 mg tablet 40 mg PO HS 12/24/24 [History] torsemide 5 mg tablet 5 mg PO QDAY edema 12/24/24 [History] Discharge Disposition Assessment: No distress noted. Discharge Disposition: home Discharge Condition: stable Discharge Plan Discharge Plan Hospital Course: Patient is a 79-year-old male with a past medical history of hypertension, diabetes, arthritis, presenting with right upper extremity and lower extremity edema. Patient states there is noticed that for the past few days. Labs/imaging: WBC 9, hemoglobin 8.2, platelets 176, sodium 142, potassium 3.9, creatinine 1.51, glucose 131. Venous duplex was obtained that revealed a nonocclusive thrombus right internal jugular vein as well as a right posterior tibial vein. Patient has been on Eliquis for right lower extremity DVT. It is unclear if he has been actually compliant with taking medications consistently. Eliquis has been started here in the hospital. Vascular surgery was consulted and recommended thrombolysis with tPA. Patient's labs were monitored daily and electrolytes replaced as needed. 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 He will need to see a specialized vascular surgery for intervention. He was stable for discharge on Eliquis. He will f/u with Dr Edmond outpatient and be referred to [facility]. His arm and leg edema had improved during admission. Patient Disposition: 01 HOME, SELF-CARE Condition: Stable Health Concerns: Post Hospitalization: new medications and changes needed to prevent readmission or further decline. Pt educated and given instructions on all concerns. Care Plan Goals: Problem: Pain/Alteration in Comfort Goal: Improve/ Resolve Pain; Achieve Pain Tolerance Instructions: Take pain medications as prescribed. Contact your primary care provider if your pain is unrelieved or worsens. Follow up with primary care provider as directed. Plan of Treatment: Continue with present treatment and follow up plan. Pt is to keep follow up appointment as instructed and take medications as ordered. Assessment: No distress noted. Prescription drug monitoring program results: PDMP reviewed and no concerns identified Prescriptions: Continued imatinib 400 mg tablet 400 mg PO QDAY (DME) lancets [Accu-Chek Softclix Lancets] Misc See Rx Instructions .ROUTE QDAY Qty: 100 Rx Instructions: As directed metformin 500 mg tablet 500 mg PO BID 30 Days Qty: 60 2RF glipizide 5 mg tablet 5 mg PO DAILY 30 Days Qty: 30 3RF Eliquis 5 mg tablet 5 mg PO BID 30 Days Qty: 60 5RF cyproheptadine 4 mg tablet 2 mg PO BID Qty: 30 3RF Multaq 400 mg tablet 400 mg PO BID Qty: 60 3RF gabapentin 100 mg capsule 100 mg PO BID 30 Days Qty: 60 3RF hydrocodone-acetaminophen 10-325 mg tablet 1 - 2 tab PO TID MDD 4 PRN (Reason: pain) 30 Days Qty: 100 0RF ondansetron HCl 4 mg tablet 4 mg PO TID PRN (Reason: Nausea And Vomiting) aspirin 81 mg Tablet,Delayed Release (Dr/Ec) 81 mg PO QDAY simvastatin 40 mg tablet 40 mg PO HS docusate sodium 100 mg Capsule 100 mg PO QDAY PRN diclofenac sodium 1 % Gel 2 g TOPICAL BID torsemide 5 mg tablet 5 mg PO QDAY finasteride 5 mg tablet 5 mg PO QDAY Orders to Discharge Patient Discharge Orders: Discharge (Routine); Ordered 12/28/24 Ordered By: Krystina Rowell Follow ups/Referrals Follow ups/Referrals: Stephane Sandoval MD [Primary Care Provider] - 3 days (Make follow up as needed.) Doug Edmond [STAFF PHYSICIAN] - 01/02/25 2:30 pm Instructions Instructions: Bleeding Precautions When on Anticoagulant Therapy, Adult, Angioedema, [place]oz[place], Deep Vein Thrombosis, Venous Thromboembolism Prevention Stand Alone Forms: Find Help Web Site, Post Hospital Follow Up Care
== END 2024-12-28 16:45 | disposition home or self-care (01) ==
LOC: MED/SURG 10:15 → ER 10:15 → MED/SURG 15:36 → ICU 12-27 10:53
PROVIDERS: ADMIT Family Medicine; ATTEND Family Medicine
DX: I82.441 Acute embolism and thrombosis of right tibial vein; H10.33 Unspecified acute conjunctivitis, bilateral; Z53.8 Procedure and treatment not carried out for other reasons; Z79.01 Long term (current) use of anticoagulants; E11.65 Type 2 diabetes mellitus with hyperglycemia; K21.9 Gastro-esophageal reflux disease without esophagitis; I10 Essential (primary) hypertension; R00.0 Tachycardia, unspecified; Z98.890 Other specified postprocedural states; R94.31 Abnormal electrocardiogram [ECG] [EKG]; I82.C11 Acute embolism and thrombosis of right internal jugular vein; R60.1 Generalized edema; D64.89 Other specified anemias; Z90.49 Acquired absence of other specified parts of digestive tract; R06.02 Shortness of breath

== ENCOUNTER 2025-02-10 12:32 | Observation (INO) ==
--- NOTE | 2025-02-10 12:55 | DR.GENAD ---
HPI Time Seen Time Seen by Provider: 02/10/25 12:53 Complaint/Symptoms Chief Complaint Doctors Comments: Patient was called by his primary care provider today because they geovany labs yesterday and his hemoglobin was 6.2. Patient has a history of having some type of colon mass removed about couple mon ths ago and he does see an oncologist. 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 and resection of 2 areas of small the small bowel several months ago.) Family History Family Medical History: Diabetes Mellitus Social History Do you use any recreational Drugs:: No ROS Review of Systems Eyes: No Symptoms Reported ENTM: No Symptoms Reported Respiratoy: No Symptoms Reported Cardiovascular: No Symptoms Reported Gastrointestinal/Abdominal: No Symptoms Reported Genitourinary: No Symptoms Reported Neurological: Seizure Musculoskeletal: No Symptoms Reported Hematologic/Lymphatic: Anemia Endocrine: No Symptoms Reported Psychiatric: No Symptoms Reported PE Vital Signs Vitals: Vital Signs Temperature 98.0 F Pulse Rate 101 Respiratory Rate 14 Blood Pressure 144/67 Blood Pressure 149/71 O2 Sat by Pulse Oximetry 98 General Limitations: No Limitations and Physical Limitation (Patient has been a little lethargic over the last week but he said he is able to ambulate without using an assistive device such as walker or cane) General Appearance: In No Apparent Distress Head Head Exam: Normal Inspection, Atraumatic and Normocephalic Eyes Eye exam: Normal Appearance, PERRL and EOMI ENT ENT Exam: Normal Exam, Normal Oropharynx and Normal External Ear Exam External Ear Exam: Normal External Inspection TM/Canal Exam: Bilateral: Normal Nose Exam: Normal Nose Exam Mouth Exam: Normal Inspection Throat Exam: Normal Inspection Neck Neck Exam: Normal Inspection Chest Chest Inspection: Normal Inspection Respiratory Respiratory Exam: Normal Lung Sounds Bilat Cardiovascular Cardiovascular Exam: Regular Rate Abdominal Exam Abdominal Exam: Normal Inspection Extremities Extremities Exam: Normal Inspection Back Back Exam: Normal Inspection Neurologic Neurological Exam: Alert and Oriented X3 Psychiatric Psychiatric Exam: Normal Affect Skin Skin Exam: Warm, Dry and Intact MDM Differential Diagnosis Differential Diagnosis: anemia,h/o colon cancer COURSE Treatment Treatment: This patient remained stable during ER evaluation. We did repeat his hemoglobin it was 6.2 for the labs that were done yesterday and it was 6.0 today. We did do a urinalysis that was normal CBC and CMP that was pretty much relatively stable except for hemoglobin 6.0 and hematocrit was 18. I did speak to Dr. Medrano about this patient at 1415 and he said the patient will be referred to the hospital for transfusion of 2 units of packed red blood cells. Patient was made aware of the intent to refer her to the hospital for 2 units of packed red blood cells and was agreeable to the observation. [facility] Labs Reviewed Laboratory Results Reviewed?: Yes 02/10/25 13:06 02/10/25 13:06 Laboratory: WBC 6.1 X10^3/uL (3.6-10.0) 02/10/25 13:06 RBC 1.85 X10^6/uL (4.7-6.0) L 02/10/25 13:06 Hgb 6.0 g/dL (13.5-18.0) L* 02/10/25 13:06 Hct 18.4 % (42.0-54.0) L* 02/10/25 13:06 MCV 99.6 fL (80.0-100.0) 02/10/25 13:06 MCH 32.2 pg (27.0-34.0) 02/10/25 13:06 MCHC 32.4 g/dL (33.0-35.0) L 02/10/25 13:06 RDW 14.6 % (11.6-16.5) 02/10/25 13:06 Plt Count 247 X10^3/uL (150.0-450.0) 02/10/25 13:06 MPV 7.6 fL (7.4-11.0) 02/10/25 13:06 Neut % (Auto) 65.7 % (42.0-75.0) 02/10/25 13:06 Lymph % (Auto) 23.7 % (21.0-51.0) 02/10/25 13:06 [place] % (Auto) 9.7 % (0.0-13.0) 02/10/25 13:06 Eos % (Auto) 0.4 % (0.9-2.9) L 02/10/25 13:06 Baso % (Auto) 0.5 % (0.2-1.0) 02/10/25 13:06 Neut # (Auto) 4.0 x10^3/uL (2.2-4.8) 02/10/25 13:06 Lymph # (Auto) 1.4 X10^3/uL (1.3-2.9) 02/10/25 13:06 [place] # (Auto) 0.6 x10^3/uL (0.3-0.8) 02/10/25 13:06 Eos # (Auto) 0.0 x10^3/uL (0.0-0.2) 02/10/25 13:06 Baso # (Auto) 0.0 X10^3/uL (0.0-0.1) 02/10/25 13:06 Absolute Nucleated RBC 0.1 /100WBC 02/10/25 13:06 Sodium 144 mmol/L (136-145) 02/10/25 13:06 Corrected Sodium 145 mmol/L (136-145) 02/10/25 13:06 Potassium 4.1 mmol/L (3.5-5.1) 02/10/25 13:06 Chloride 107 mmol/L (98-107) 02/10/25 13:06 Carbon Dioxide 26.9 mmol/L (21-32) 02/10/25 13:06 BUN 22 mg/dL (7-18) H 02/10/25 13:06 Creatinine 2.01 mg/dL (0.70-1.30) H 02/10/25 13:06 Est GFR (MDRD) Af Amer 41 (>60) L 02/10/25 13:06 Est GFR (MDRD) Non-Af 34 (>60) L 02/10/25 13:06 Glucose 135 mg/dL (65-99) H 02/10/25 13:06 Calcium 9.0 mg/dL (8.5-10.1) 02/10/25 13:06 Corrected Calcium 9.6 mg/dL (8.5-10.1) 02/10/25 13:06 Total Bilirubin 0.50 mg/dL (0.2-1.0) 02/10/25 13:06 AST 19 Units/L (15-37) 02/10/25 13:06 ALT 25 Units/L (12-78) 02/10/25 13:06 Alkaline Phosphatase 25 Units/L (46-116) L 02/10/25 13:06 Total Protein 5.7 g/dL (6.4-8.2) L 02/10/25 13:06 Albumin 3.3 g/dL (3.4-5.0) L 02/10/25 13:06 Globulin 2.4 g/dL (2.5-4.5) L 02/10/25 13:06 Albumin/Globulin Ratio 1.4 Ratio (1.1-2.1) 02/10/25 13:06 Specimen Type Clean catch urine 02/10/25 13:38 Urine Color Yellow (YELLOW) 02/10/25 13:38 Urine Appearance Clear (CLEAR) 02/10/25 13:38 Urine pH 6.0 (5.0 - 8.0) 02/10/25 13:38 Ur Specific [place] 1.015 (1.000-1.030) 02/10/25 13:38 Urine Protein 2+ (NEGATIVE) 02/10/25 13:38 Urine Glucose (UA) Negative (NEGATIVE) 02/10/25 13:38 Urine Ketones Negative (NEGATIVE) 02/10/25 13:38 Urine Blood Negative (NEGATIVE) 02/10/25 13:38 Urine Nitrite Negative (NEGATIVE) 02/10/25 13:38 Urine Bilirubin Negative (NEGATIVE) 02/10/25 13:38 Urine Urobilinogen Normal (NORMAL) 02/10/25 13:38 Ur Leukocyte Esterase Negative (NEGATIVE) 02/10/25 13:38 Urine RBC 0-2 /HPF (0-3) 02/10/25 13:38 Urine WBC 0-2 /HPF (0-5) 02/10/25 13:38 Ur Squamous Epith Cells Rare /HPF (NEGATIVE) 02/10/25 13:38 Urine Bacteria Trace /HPF (NEGATIVE) 02/10/25 13:38 Hyaline Casts Rare /LPF (NEGATIVE) 02/10/25 13:38 Urine Mucus Rare /HPF (NEGATIVE) 02/10/25 13:38 Ur Culture Indicated? No/not indicated 02/10/25 13:38 Opioid Opioid Risk Tool Age (Tayo box if 16-45): No History of Preadolescent Sexual Abuse: No Total: 0 Total Score Risk Category: Low Risk Copyright: Stalin BLEVINS predicting aberrant behaviors Discharge Plan Diagnosis Discharge Problem: Anemia Discharge Plan Patient Disposition: 09 ADMITTED INPATIENT Condition: Stable Orders to Discharge Patient Discharge Orders: Transfer (Routine); Ordered 02/10/25 Ordered By: Tripp Givens
[2025-02-10 13:16] LABS: EOSINOPHILS % (AUTO) 0.4 % (0.9-2.9); MEAN CORPUSCULAR HGB CONC 32.4 g/dL (33.0-35.0); MEAN PLATELET VOLUME 7.6 fL (7.4-11.0); MONOCYTES # (AUTO) 0.6 x10^3/uL (0.3-0.8)
[2025-02-10 13:19] LABS: BASOPHILS % (AUTO) 0.5 % (0.2-1.0); LYMPHOCYTES # (AUTO) 1.4 X10^3/uL (1.3-2.9); LYMPHOCYTES % (AUTO) 23.7 % (21.0-51.0); MEAN CORPUSCULAR HEMOGLOBIN 32.2 pg (27.0-34.0); MEAN CORPUSCULAR VOLUME 99.6 fL (80.0-100.0); MONOCYTES % (AUTO) 9.7 % (0.0-13.0); NEUTROPHILS % (AUTO) 65.7 % (42.0-75.0); PLATELET COUNT 247 X10^3/uL (150.0-450.0); RED BLOOD COUNT 1.85 X10^6/uL (4.7-6.0); RED CELL DISTRIBUTION WIDTH 14.6 % (11.6-16.5); WHITE BLOOD COUNT 6.1 X10^3/uL (3.6-10.0)
[2025-02-10 13:22] LABS: HEMATOCRIT 18.4 % (42.0-54.0)
[2025-02-10 13:27] LABS: ALBUMIN 3.3 g/dL (3.4-5.0); CARBON DIOXIDE 26.9 mmol/L (21-32); COR CA(FOR HYPOALB) 9.6 mg/dL (8.5-10.1); CREATININE 2.01 mg/dL (0.70-1.30); POTASSIUM 4.1 mmol/L (3.5-5.1); TOTAL PROTEIN 5.7 g/dL (6.4-8.2)
[2025-02-10 13:50] LABS: BILIRUBIN,URINE NEGATIVE (NEGATIVE); BLOOD/HEMOGLOBIN,URINE NEGATIVE (NEGATIVE); GLUCOSE, URINE NEGATIVE (NEGATIVE); KETONES,URINE NEGATIVE (NEGATIVE); LEUKOCYTE ESTERASE ,URINE NEGATIVE (NEGATIVE); NITRITES,URINE NEGATIVE (NEGATIVE); PROTEIN,URINE 2+ (NEGATIVE); UROBILINOGEN,URINE NORMAL (NORMAL)
[2025-02-10 13:51] LABS: APPEARANCE,URINE CLEAR (CLEAR); COLOR,URINE YELLOW (YELLOW)
[2025-02-10 13:57] LABS: BACTERIA,URINE TRACE /HPF (NEGATIVE); HYALINE CASTS, URINE RARE /LPF (NEGATIVE); RBC,URINE 0-2 /HPF (0-3); SQUAMOUS EPITHELIAL CELL,UR RARE /HPF (NEGATIVE)
[2025-02-10] MEDS ORDERED: NORCO 10/325 TAB PO PRN (14:43)
[2025-02-10 15:23] VITALS: BMI 24.7
[2025-02-10] MEDS: MULTAQ PO SCH (20:45)
[2025-02-10] MEDS: MILK OF MAGNESIA PO SCH (20:45)
[2025-02-10] MEDS: ELIQUIS PO SCH (20:45)
[2025-02-10] MEDS: COLACE CAP 100 MG PO SCH (20:45)
[2025-02-10] MEDS: MEGACE ORAL SUSP 400 MG/10 ML PO SCH (20:46)
[2025-02-10] MEDS ORDERED: NovoLIN R (or HumuLIN R) SUBCUT PRN (20:50)
[2025-02-11 02:16] LABS: HEMATOCRIT 24.7 % (42.0-54.0)
[2025-02-11 02:17] LABS: HEMOGLOBIN 8.4 g/dL (13.5-18.0)
[2025-02-11 03:56] VITALS: O2SAT 100
[2025-02-11 06:08] LABS: BASOPHILS % (AUTO) 0.5 % (0.2-1.0); EOSINOPHILS # (AUTO) 0.1 x10^3/uL (0.0-0.2); EOSINOPHILS % (AUTO) 0.8 % (0.9-2.9); HEMATOCRIT 25.5 % (42.0-54.0); HEMOGLOBIN 8.8 g/dL (13.5-18.0); LYMPHOCYTES # (AUTO) 1.9 X10^3/uL (1.3-2.9); LYMPHOCYTES % (AUTO) 27.6 % (21.0-51.0); MEAN CORPUSCULAR HEMOGLOBIN 31.5 pg (27.0-34.0); MEAN CORPUSCULAR HGB CONC 34.4 g/dL (33.0-35.0); MEAN CORPUSCULAR VOLUME 91.8 fL (80.0-100.0); MEAN PLATELET VOLUME 7.7 fL (7.4-11.0); MONOCYTES # (AUTO) 0.8 x10^3/uL (0.3-0.8); MONOCYTES % (AUTO) 11.6 % (0.0-13.0); NEUTROPHILS # (AUTO) 4.1 x10^3/uL (2.2-4.8); NEUTROPHILS % (AUTO) 59.5 % (42.0-75.0); PLATELET COUNT 214 X10^3/uL (150.0-450.0); RED BLOOD COUNT 2.78 X10^6/uL (4.7-6.0); RED CELL DISTRIBUTION WIDTH 15.8 % (11.6-16.5); WHITE BLOOD COUNT 6.9 X10^3/uL (3.6-10.0)
[2025-02-11 06:25] LABS: ALANINE AMINOTRANSFERASE 21 Units/L (12-78); ALBUMIN 2.8 g/dL (3.4-5.0); ALKALINE PHOSPHATASE 24 Units/L (46-116); ASPARTATE AMINO TRANSFERASE 19 Units/L (15-37); BLOOD UREA NITROGEN 18 mg/dL (7-18); CALCIUM 8.5 mg/dL (8.5-10.1); CHLORIDE 109 mmol/L (98-107); COR CA(FOR HYPOALB) 9.5 mg/dL (8.5-10.1); CREATININE 1.41 mg/dL (0.70-1.30); GLUCOSE 105 mg/dL (65-99); POTASSIUM 4.3 mmol/L (3.5-5.1); SODIUM 145 mmol/L (136-145); TOTAL PROTEIN 5.1 g/dL (6.4-8.2); eGFR NON BLACK RACES 51 (>60)
[2025-02-11] MEDS: NS 500 ML IV 500 ML IV ONE (06:50)
--- NOTE | 2025-02-11 07:07 | RAD ---
EXAM:CHEST, 1 VIEWHISTORY:SOB, CHF;COMPARISON:12/26/2024FINDINGS:The cardiomediastinal silhouette is stable.No acute airspace disease. No pneumothorax or effusion.No acute osseous abnormality.IMPRESSION:No acute cardiopulmonary disease.THIS IS AN ELECTRONICALLY VERIFIED FINAL REPORT02/11/2025 7:04 AM - Electronically signed by Tobias Maxwell MD
[2025-02-11] MEDS: ASPIRIN 81 MG CHEWTAB PO SCH (08:13)
[2025-02-11] MEDS: PROSCAR PO SCH (08:13)
[2025-02-11] MEDS: PROTONIX INJ 40 MG VIAL IVP SCH (08:13)
[2025-02-11 12:32] LABS: HEMATOCRIT 26.3 % (42.0-54.0)
[2025-02-11 16:25] VITALS: BP 112/58; PULSE 66; RESP 17; TEMP 97.3
[2025-02-11] MEDS ORDERED: SNACK - Diabetic Appropriate PO SCH (20:00)
== END 2025-02-11 16:40 | disposition home health service (06) ==
LOC: MED/SURG 12:32 → ER 12:32 → MED/SURG 14:52
PROVIDERS: ADMIT Internal Medicine; ATTEND Family Medicine
DX: Z85.038 Personal history of other malignant neoplasm of large intestine; K92.1 Melena; M19.90 Unspecified osteoarthritis, unspecified site; D50.8 Other iron deficiency anemias; Z59.86 Financial insecurity; Z90.49 Acquired absence of other specified parts of digestive tract; E11.65 Type 2 diabetes mellitus with hyperglycemia; R06.02 Shortness of breath; G47.33 Obstructive sleep apnea (adult) (pediatric); K21.9 Gastro-esophageal reflux disease without esophagitis; I10 Essential (primary) hypertension